=== PATIENT | female | born 1970 | race Caucasian/White ===

== ENCOUNTER 2019-03-21 02:30 | Inpatient (IN) | payer MEDICAID, OTHER ==
[~2019-03-21] VITALS: Ht 152.4 cm; Wt 74.4 kg
[2019-03-21 03:29] VITALS: BP 156/81
[2019-03-21] MEDS: VANCOMYCIN PER PHARMACY MC PRN ×2 (05:41→05:49)
--- NOTE | 2019-03-21 05:43 | NUR ---
Pharmacy Vancomycin Dosing Note S:Consulted to monitor and dose vancomycin started 03/20/19. O:YESIKA CALZADA is a 48 year old F with LEUCOCYCTOSIS-- POSS MENINGITIS . Height: 5 feet, 0 inches Weight: 70.877372 kg [place] Body Weight: 45.50 Adjusted Body Weight: 55.66 Dosing Weight: Actual Other Antibiotics: CEFTRIAXONE 2GM IV Q12H AMPICILLIN 2GM IV Q6H ACYCLOVIR 700MG IV Q8H LABS: Last BUN: 14 Last Creatinine: 0.9 Creatinine Clearance: 66 mL/min Last WBC: 17.9 Last Procalcitonin: Tmax (past 24 hours): Microbiology: I/O: Drug Levels: Last level: on at Last dose given at Vancomycin Dosing: Loading Dose: 1750 mg x1 03/20 APPROX 2029 AT [facility] Dosing Weight: Actual Target Trough: 15-20 A: Based on: Actual Wt and CrCl P: 1. 03/21/19 0900 Vancomycin 1000 mg IV q12h 2. Follow up Trough level on 03/22/19 at 0830 3. Pharmacy will continue to monitor, follow and adjust therapy as needed. LISA GALEANA RPH, 03/21/19 0543 Signed: 03/21/19 at 0546 by LISA GALEANA RPH PHA
[2019-03-21] MEDS ORDERED: ACYCLOVIR SODIUM IV SCH (06:00)
[2019-03-21] MEDS ORDERED: DEXTROSE 5% IV SCH (06:00)
[2019-03-21 06:16] LABS: BASO % 0 % (0-3); EOS % 0 % (0-3); HEMATOCRIT 41.1 % (36.0-47.0); HEMOGLOBIN 13.8 g/dL (12.0-15.5); LYMPH % 8 % (24-48); MEAN CORPUSCULAR HEMOGLOBIN 31 pg (25-35); MEAN CORPUSCULAR HGB CONC 34 g/dL (31-37); MEAN CORPUSCULAR VOLUME 92 fL (79-100); MONO # 0.4 x10^3/uL (0.0-1.1); MONO % 3 % (0-9); NEUT # 10.9 x10^3/uL (1.8-7.7); NEUT % 88 % (31-73); PLATELET COUNT 257 x10^3/uL (140-400); RED BLOOD COUNT 4.45 x10^6/uL (3.50-5.40); RED CELL DISTRIBUTION WIDTH 13.2 % (11.5-14.5); WHITE BLOOD COUNT 12.4 x10^3/uL (4.0-11.0)
[2019-03-21 06:35] LABS: ALBUMIN/GLOBULIN RATIO 0.9 (1.0-1.7); CALCIUM 8.2 mg/dL (8.5-10.1); CREATININE 0.7 mg/dL (0.6-1.0); GFR 88.6; POTASSIUM 3.6 mmol/L (3.5-5.1); TOTAL BILIRUBIN 0.4 mg/dL (0.2-1.0); TOTAL PROTEIN 6.5 g/dL (6.4-8.2)
[2019-03-21 07:00] VITALS: BP 117/63
[2019-03-21] MEDS ORDERED: AMPICILLIN SODIUM 2 GM in IV NORMAL SALINE 100ML 100 ML IV SCH (07:00)
--- NOTE | 2019-03-21 08:34 | NUR ---
Chart review done,however, no notes as yet. Spoke w/ pt at bedside w/ visitors present. Pt indicated severe dizziness affecting ability to stand therefore affecting safe functional mobility and self care. Pt may benefit from PT/OT Eval and Treat when appropriate. Addendum: 03/21/19 at 0835 by CAROL VAIL OT Amended: Links added.
[2019-03-21] MEDS ORDERED: cefTRIAXone IV Push 2 GM VIAL. IVP SCH (09:00)
[2019-03-21] MEDS ORDERED: VANCOMYCIN 1 GM in IV NORMAL SALINE 250ML 250 ML IV SCH (09:00)
[2019-03-21] MEDS ORDERED: VANCOMYCIN 1.75 GM in IV NORMAL SALINE 500ML BAG 500 ML IV SCH (09:00)
--- NOTE | 2019-03-21 09:14 | NUR ---
SW following pt for anticipated dc needs. Chart reviewed. Pt lives at home alone, admitted for AMS, R/O meningitis. Rehab screen recommends PT/OT order. No Physician notes to review at this time. Will continue to follow.
[2019-03-21 09:25] LABS: % BANDS 7 % (0-9); % LYMPHS 7 % (24-48); % MONOS 3 % (0-10); % SEGS 83 % (35-66); PLT ESTIMATE ADEQUATE (ADEQUATE)
--- NOTE | 2019-03-21 10:48 | PDOC1 ---
History and Physical Date of Admission Date of Admission DATE: 03/21/19 TIME: 10:48 Identification/Chief Complaint Chief Complaint SEEN IN ER IN [place], TRANSFERRED TO HERE FOR ID CONSULT, IV ANTIBIOTICS LP REVIEWED, CULTURES DONE ID AND NEUROLOGY CONSULTED Past Medical History Cardiovascular: HTN Rheumatologic: Fibromyalgia Family History Family History: Hypertension Social History Smoke: <1 pack per day ALCOHOL: none Drugs: None Current Medications Current Medications Current Medications Vancomycin HCl (Vanco Per Pharmacy) 1 each PRN DAILY PRN MC SEE COMMENTS Last administered on 03/21/19at 05:49; Start 03/21/19 at 03:30 Ampicillin Sodium 2 gm/Sodium Chloride 100 ml @ 200 mls/hr Q6H IV Last administered on 03/21/19at 07:28; Start 03/21/19 at 07:00 Acyclovir Sodium 700 mg/Dextrose 264 ml @ 267.945 mls/hr Q8HRS IV Last administered on 03/21/19at 06:08; Start 03/21/19 at 06:00 Ceftriaxone Sodium (Rocephin) 2 gm Q12HR IVP Last administered on 03/21/19at 08 :46; Start 03/21/19 at 09:00 Vancomycin HCl 1.75 gm/Sodium Chloride 500 ml @ 250 mls/hr Q12H IV ; Start 03/21/19 at 09:00; Status UNV Vancomycin HCl 1 gm/Sodium Chloride 250 ml @ 250 mls/hr Q12H IV Last administered on 03/21/19at 08:46; Start 03/21/19 at 09:00 Vancomycin HCl (Vancomycin Trough Level) 1 each 1X ONCE MC ; Start 03/22/19 at 08:30; Stop 03/22/19 at 08:31 Allergies Allergies: Coded Allergies: No Known Drug Allergies (Unverified , 03/21/19) ROS Review of System 14 PT ROS OTHERWISE NEG General: YES: Fatigue, Malaise PSYCHOLOGICAL ROS: No: Anxiety, Behavioral Disorder, Concentration difficultie, Decreased libido, Depression, Disorientation, Hallucinations, Hostility, Irritablity, Memory difficulties, Mood Swings, Obsessive thoughts, Physical abuse, Sexual abuse, Sleep disturbances, Suicidal ideation, Other HEENT: YES: Heacaches; No: Visual Changes, Hearing change, Nasal congestion, Nasal discharge, Oral lesions, Sinus pain, Sore Throat, Epistaxis, Sneezing, Snoring, Tinnitus, Vertigo, Vocal changes, Other ALLERGY AND IMMUNOLOGY: No: Hives, Insect Bite Sensitivity, Itchy/Watery Eyes, Nasal Congestion, Post Nasal Drip, Seasonal Allergies, Other Hematological and Lymphatic: No: Bleeding Problems, Blood Clots, Blood Transfusions, Brusing, Night Sweats, Pallor, Swollen Lymph Nodes, Other ENDOCRINE: No: Breast Changes, Galactorrhea, Hair Pattern Changes, Hot Flashes, Malaise/lethargy, Mood Swings, Palpitations, Polydipsia/polyuria, Skin Changes, Temperature Intolerance, Unexpected Weight Changes, Other Breast: No New/Changing Breast Lumps, No Nipple changes, No Nipple discharge, No Other Respiratory: No: Cough, Hemoptysis, Orthopnea, Pleuritic Pain, Shortness of breath, SOB with excertion, Sputum Changes, Stridor, Tachypnea, Wheezing, Other Cardiovascular: No Chest Pain, No Palpitations, No Orthopnea, No Paroxysmal Noc. Dyspnea, No Edema, No Lt Headedness, No Other Gastrointestinal: No Nausea, No Vomiting, No Abdominal Pain, No Diarrhea, No Constipation, No Melena, No Hematochezia, No Other Genitourinary: No Dysuria, No Frequency, No Incontinence, No Hematuria, No Retention, No Discharge, No Urgency, No Pain, No Flank Pain, No Other, No , No , No , No , No , No , No Musculoskeletal: Yes Joint Stiffness; No Gait Disturbance, No Joint Pain, No Joint Swelling, No Muscle Pain, No Muscular Weakness, No Pain In:, No Swelling In:, No Other Neurological: Yes Numbness/Tingling Skin: Yes Dry Skin Physical Exam Physical Exam NECK SUPPLE, SLEEPY General: Alert, Oriented X3, Cooperative, No acute distress HEENT: Atraumatic, PERRLA, EOMI, Mucous membr. moist/pink Lungs: Clear to auscultation, Normal air movement Heart: S1S2, RRR, no thrills, no rubs, no gallops, no murmurs Cardiovascular: S1, S2 Breasts: Not examined Abdomen: Normal bowel sounds, Soft, No tenderness Rectal Exam: not examined PELVIC: Examination not indicated Extremities: No clubbing, No cyanosis, No edema Skin: No rashes Neuro: Normal speech, Strength at 5/5 X4 ext, Cranial nerves 3-12 NL Psych/Mental Status: Mental status NL, Mood NL, Other (ODD BEHAVIOR) Vitals Vitals Vital Signs Date Time Temp Pulse Resp B/P (MAP) Pulse Ox O2 Delivery O2 Flow Rate FiO2 03/21/19 08:00 Room Air 03/21/19 07:00 97.5 57 16 117/63 (81) 98 2.0 97.5 Labs Labs Laboratory Tests Test 03/21/19 06:05 White Blood Count 12.4 x10^3/uL (4.0-11.0) Red Blood Count 4.45 x10^6/uL (3.50-5.40) Hemoglobin 13.8 g/dL (12.0-15.5) Hematocrit 41.1 % (36.0-47.0) Mean Corpuscular Volume 92 fL (79-100) Mean Corpuscular Hemoglobin 31 pg (25-35) Mean Corpuscular Hemoglobin Concent 34 g/dL (31-37) Red Cell Distribution Width 13.2 % (11.5-14.5) Platelet Count 257 x10^3/uL (140-400) Neutrophils (%) (Auto) 88 % (31-73) Lymphocytes (%) (Auto) 8 % (24-48) Monocytes (%) (Auto) 3 % (0-9) Eosinophils (%) (Auto) 0 % (0-3) Basophils (%) (Auto) 0 % (0-3) Neutrophils # (Auto) 10.9 x10^3/uL (1.8-7.7) Lymphocytes # (Auto) 1.0 x10^3/uL (1.0-4.8) Monocytes # (Auto) 0.4 x10^3/uL (0.0-1.1) Eosinophils # (Auto) 0.0 x10^3/uL (0.0-0.7) Basophils # (Auto) 0.0 x10^3/uL (0.0-0.2) Segmented Neutrophils % 83 % (35-66) Band Neutrophils % 7 % (0-9) Lymphocytes % 7 % (24-48) Monocytes % 3 % (0-10) Platelet Estimate Adequate (ADEQUATE) Sodium Level 142 mmol/L (136-145) Potassium Level 3.6 mmol/L (3.5-5.1) Chloride Level 109 mmol/L (98-107) Carbon Dioxide Level 22 mmol/L (21-32) Anion Gap 11 (6-14) Blood Urea Nitrogen 11 mg/dL (7-20) Creatinine 0.7 mg/dL (0.6-1.0) Estimated GFR (Cockcroft-Gault) 88.6 BUN/Creatinine Ratio 16 (6-20) Glucose Level 144 mg/dL (70-99) Calcium Level 8.2 mg/dL (8.5-10.1) Total Bilirubin 0.4 mg/dL (0.2-1.0) Aspartate Amino Transf (AST/SGOT) 14 U/L (15-37) Alanine Aminotransferase (ALT/SGPT) 16 U/L (14-59) Alkaline Phosphatase 72 U/L (46-116) Total Protein 6.5 g/dL (6.4-8.2) Albumin 3.0 g/dL (3.4-5.0) Albumin/Globulin Ratio 0.9 (1.0-1.7) Laboratory Tests Test 03/21/19 06:05 White Blood Count 12.4 x10^3/uL (4.0-11.0) Red Blood Count 4.45 x10^6/uL (3.50-5.40) Hemoglobin 13.8 g/dL (12.0-15.5) Hematocrit 41.1 % (36.0-47.0) Mean Corpuscular Volume 92 fL (79-100) Mean Corpuscular Hemoglobin 31 pg (25-35) Mean Corpuscular Hemoglobin Concent 34 g/dL (31-37) Red Cell Distribution Width 13.2 % (11.5-14.5) Platelet Count 257 x10^3/uL (140-400) Neutrophils (%) (Auto) 88 % (31-73) Lymphocytes (%) (Auto) 8 % (24-48) Monocytes (%) (Auto) 3 % (0-9) Eosinophils (%) (Auto) 0 % (0-3) Basophils (%) (Auto) 0 % (0-3) Neutrophils # (Auto) 10.9 x10^3/uL (1.8-7.7) Lymphocytes # (Auto) 1.0 x10^3/uL (1.0-4.8) Monocytes # (Auto) 0.4 x10^3/uL (0.0-1.1) Eosinophils # (Auto) 0.0 x10^3/uL (0.0-0.7) Basophils # (Auto) 0.0 x10^3/uL (0.0-0.2) Segmented Neutrophils % 83 % (35-66) Band Neutrophils % 7 % (0-9) Lymphocytes % 7 % (24-48) Monocytes % 3 % (0-10) Platelet Estimate Adequate (ADEQUATE) Sodium Level 142 mmol/L (136-145) Potassium Level 3.6 mmol/L (3.5-5.1) Chloride Level 109 mmol/L (98-107) Carbon Dioxide Level 22 mmol/L (21-32) Anion Gap 11 (6-14) Blood Urea Nitrogen 11 mg/dL (7-20) Creatinine 0.7 mg/dL (0.6-1.0) Estimated GFR (Cockcroft-Gault) 88.6 BUN/Creatinine Ratio 16 (6-20) Glucose Level 144 mg/dL (70-99) Calcium Level 8.2 mg/dL (8.5-10.1) Total Bilirubin 0.4 mg/dL (0.2-1.0) Aspartate Amino Transf (AST/SGOT) 14 U/L (15-37) Alanine Aminotransferase (ALT/SGPT) 16 U/L (14-59) Alkaline Phosphatase 72 U/L (46-116) Total Protein 6.5 g/dL (6.4-8.2) Albumin 3.0 g/dL (3.4-5.0) Albumin/Globulin Ratio 0.9 (1.0-1.7) VTE Prophylaxis Ordered VTE Prophylaxis Devices: Yes VTE Pharmacological Prophylaxi: Yes Assessment/Plan Assessment/Plan impression R/O MENINGITIS Neck pain Dizziness Anxiety Fibromyalgia csf not impressive PLAN ID CONSULT NEUROLOGY CONSULT CSF CULTURES D/C IV ANTIBIOTICS, OBSERVE UDS PT/OT DVT PROPHYLAXIS LACTIC ACID 57 MIN PT EXAM, CHART REVIEW, > 50% OF TIME SPENT WITH EXAM, CHART REVIEW, PT CARE COORDINATION MELISSA SPANN MD Mar 21, 2019 10:48
[2019-03-21 11:26] VITALS: BP 132/71
--- NOTE | 2019-03-21 12:19 | PDOC ---
Infectious Disease Note Vital Sign Vital Signs Vital Signs Date Time Temp Pulse Resp B/P (MAP) Pulse Ox O2 Delivery O2 Flow Rate FiO2 03/21/19 11:26 97.3 61 16 132/71 (91) 99 Nasal Cannula 2.0 97.3 Labs Lab Laboratory Tests Test 03/21/19 06:05 White Blood Count 12.4 x10^3/uL (4.0-11.0) Red Blood Count 4.45 x10^6/uL (3.50-5.40) Hemoglobin 13.8 g/dL (12.0-15.5) Hematocrit 41.1 % (36.0-47.0) Mean Corpuscular Volume 92 fL (79-100) Mean Corpuscular Hemoglobin 31 pg (25-35) Mean Corpuscular Hemoglobin Concent 34 g/dL (31-37) Red Cell Distribution Width 13.2 % (11.5-14.5) Platelet Count 257 x10^3/uL (140-400) Neutrophils (%) (Auto) 88 % (31-73) Lymphocytes (%) (Auto) 8 % (24-48) Monocytes (%) (Auto) 3 % (0-9) Eosinophils (%) (Auto) 0 % (0-3) Basophils (%) (Auto) 0 % (0-3) Neutrophils # (Auto) 10.9 x10^3/uL (1.8-7.7) Lymphocytes # (Auto) 1.0 x10^3/uL (1.0-4.8) Monocytes # (Auto) 0.4 x10^3/uL (0.0-1.1) Eosinophils # (Auto) 0.0 x10^3/uL (0.0-0.7) Basophils # (Auto) 0.0 x10^3/uL (0.0-0.2) Segmented Neutrophils % 83 % (35-66) Band Neutrophils % 7 % (0-9) Lymphocytes % 7 % (24-48) Monocytes % 3 % (0-10) Platelet Estimate Adequate (ADEQUATE) Sodium Level 142 mmol/L (136-145) Potassium Level 3.6 mmol/L (3.5-5.1) Chloride Level 109 mmol/L (98-107) Carbon Dioxide Level 22 mmol/L (21-32) Anion Gap 11 (6-14) Blood Urea Nitrogen 11 mg/dL (7-20) Creatinine 0.7 mg/dL (0.6-1.0) Estimated GFR (Cockcroft-Gault) 88.6 BUN/Creatinine Ratio 16 (6-20) Glucose Level 144 mg/dL (70-99) Calcium Level 8.2 mg/dL (8.5-10.1) Total Bilirubin 0.4 mg/dL (0.2-1.0) Aspartate Amino Transf (AST/SGOT) 14 U/L (15-37) Alanine Aminotransferase (ALT/SGPT) 16 U/L (14-59) Alkaline Phosphatase 72 U/L (46-116) Total Protein 6.5 g/dL (6.4-8.2) Albumin 3.0 g/dL (3.4-5.0) Albumin/Globulin Ratio 0.9 (1.0-1.7) Objective Assessment Neck pain Dizziness Anxiety Fibromyalgia CSF with no wbc Plan Plan of Care d/c all antibiotics supportive care may need neurology consult JULIANE SANTANA MD Mar 21, 2019 12:19
[2019-03-21 15:00] VITALS: BP 176/90
[2019-03-21] MEDS: ACETAMINOPHEN 325 MG TABLET. PO PRN (15:29)
[2019-03-21] MEDS: amLODIPine BESYLATE 5 MG TABLET PO SCH (15:29)
[2019-03-21] MEDS: ENOXAPARIN 40 MG/0.4 ML SYRINGE. SQ SCH (15:30)
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
[2019-03-21 19:32] VITALS: BP 164/87
[2019-03-21] MEDS: oxyCODONE IR 5 MG TABLET PO PRN (20:14)
[2019-03-21] MEDS: TOPIRAMATE 25 MG TABLET. PO SCH (20:15)
[2019-03-21] MEDS: METOPROLOL SUCC 24HR ER 25 MG TAB.ER.24H. PO SCH (20:16)
[2019-03-21 23:50] VITALS: BP_SYST 159
[2019-03-22] MEDS: MORPHINE SULFATE 2 MG/ML VIAL. IV PRN ×4 (01:06→16:29)
--- NOTE | 2019-03-22 02:15 | CONS ---
DATE OF CONSULTATION: 03/21/2019 REQUESTING PHYSICIAN: Wilder Spears MD REASON FOR CONSULTATION: Neck pain, dizziness, and abnormal CSF. HISTORY OF PRESENT ILLNESS: This is a 48-year-old female who was transferred from [facility]. The patient presented there with neck pain and dizziness. The patient has chronic neck problem and back problem in fact the patient is disable on that basis, but this was more than her usual she says and the dizziness hence she came in. The patient denied any fever, denied any visual symptoms, denied any nausea, vomiting, diarrhea, chest pain, shortness of breath. The patient had a CAT scan of the head done, which was negative there. The patient had CSF done, which showed 250 rbc, 0 wbc, normal protein, and normal glucose. The patient is transferred here on multiple antibiotics. The patient is alert and awake, who is not in any distress. The patient denies any other new symptoms other than continued to have dizziness and neck pain and body ache. PAST MEDICAL HISTORY: Positive for fibromyalgia, anxiety disorder, chronic pain problem. The patient has had hysterectomy and tonsillectomy. Normally, the patient does not go to the doctor regularly whenever needed she says, has not been into the hospital for a long time SOCIAL HISTORY: Positive for smoking. No alcohol use or drug use. ALLERGIES: No known drug allergies. CURRENT MEDICATIONS: Reviewed. REVIEW OF SYSTEMS: As per HPI, all other systems reviewed and are negative. PHYSICAL EXAMINATION: GENERAL: Alert, oriented female, not in distress. VITAL SIGNS: Stable, afebrile. HEENT: Both pupils are round and reacting. No conjunctival lesion. No lesion in the mouth. NECK: Supple. No JVP. No lymphadenopathy. LUNGS: Clear. HEART: S1 and S2 regular. ABDOMEN: Benign. EXTREMITIES: No edema or cyanosis. SKIN: Unremarkable. NEUROLOGIC: Alert, awake, and appropriate. No focal neurologic deficit. The patient has complaints of neck pain, but her meningeal signs are negative. LABORATORY DATA: White count is 12.7. BUN and creatinine is normal. Her CAT scan of the head was unremarkable for any acute changes from [place]. IMPRESSION: 1. Acute on chronic exacerbation of neck pain. 2. Dizziness. 3. Anxiety disorder. 4. Leukocytosis, most likely to be reactive. 5. CSF with no WBC, and high RBC from traumatic tap. RECOMMENDATIONS: We will discontinue antibiotics. Supportive care. Monitor closely. May need MRI of the head if continued to have symptoms of dizziness, but we will leave it for Neurology to decide. At least, CSF ____, there are no signs of infection. It is a traumatic tap. We will continue to follow. Thank you very much, Dr. Spears, for giving me the opportunity to participate in this patient's care. JULIANE SANTANA MD DR: CESAR/patricia JOB#: [id number] / [id number] LACEY
[2019-03-22 03:50] VITALS: BP 179/103
[2019-03-22 07:30] VITALS: BP 152/93
[2019-03-22] MEDS: amLODIPine BESYLATE 5 MG TABLET PO SCH (09:25)
[2019-03-22] MEDS: METOPROLOL SUCC 24HR ER 25 MG TAB.ER.24H. PO SCH (09:26)
[2019-03-22] MEDS: TOPIRAMATE 25 MG TABLET. PO SCH ×2 (09:26→21:26)
[2019-03-22 09:31] LABS: VANC TR 5.6 mcg/mL (10.0-20.0)
--- NOTE | 2019-03-22 09:36 | PDOC ---
PROGRESS NOTES History of Present Illness History of Present Illness VTE Prophylaxis Ordered VTE Prophylaxis Devices: Yes VTE Pharmacological Prophylaxi: Yes Assessment/Plan Assessment/Plan impression R/O MENINGITIS Neck pain Dizziness Anxiety Fibromyalgia csf not impressive PLAN ID CONSULT NEUROLOGY CONSULT CSF CULTURES D/C IV ANTIBIOTICS, OBSERVE UDS PT/OT DVT PROPHYLAXIS LACTIC ACID Metoprolol 25 mg daily. Topamax 25 mg bid. Brain MRI w/wo contrast. 38 min pt exam, chart review, > 50% of time spent with exam, chart review, pt care coordination Vitals Vitals Vital Signs Date Time Temp Pulse Resp B/P (MAP) Pulse Ox O2 Delivery O2 Flow Rate FiO2 03/22/19 07:30 97.6 57 18 152/93 (112) 99 Room Air 97.6 03/21/19 15:00 2.0 Physical Exam General: Alert, Oriented X3, Cooperative, No acute distress Abdomen: Normal bowel sounds, Soft, No tenderness Extremities: No clubbing, No cyanosis, No edema Skin: No rashes Labs LABS Laboratory Tests Test 03/21/19 15:45 03/21/19 19:30 Lactic Acid Level 1.2 mmol/L (0.4-2.0) Erythrocyte Sedimentation Rate 8 (0-25) Comment Review of Relevant I have reviewed the following items merlyn (where applicable) has been applied. Labs Laboratory Tests Test 03/21/19 06:05 03/21/19 15:45 03/21/19 19:30 White Blood Count 12.4 x10^3/uL (4.0-11.0) Red Blood Count 4.45 x10^6/uL (3.50-5.40) Hemoglobin 13.8 g/dL (12.0-15.5) Hematocrit 41.1 % (36.0-47.0) Mean Corpuscular Volume 92 fL (79-100) Mean Corpuscular Hemoglobin 31 pg (25-35) Mean Corpuscular Hemoglobin Concent 34 g/dL (31-37) Red Cell Distribution Width 13.2 % (11.5-14.5) Platelet Count 257 x10^3/uL (140-400) Neutrophils (%) (Auto) 88 % (31-73) Lymphocytes (%) (Auto) 8 % (24-48) Monocytes (%) (Auto) 3 % (0-9) Eosinophils (%) (Auto) 0 % (0-3) Basophils (%) (Auto) 0 % (0-3) Neutrophils # (Auto) 10.9 x10^3/uL (1.8-7.7) Lymphocytes # (Auto) 1.0 x10^3/uL (1.0-4.8) Monocytes # (Auto) 0.4 x10^3/uL (0.0-1.1) Eosinophils # (Auto) 0.0 x10^3/uL (0.0-0.7) Basophils # (Auto) 0.0 x10^3/uL (0.0-0.2) Segmented Neutrophils % 83 % (35-66) Band Neutrophils % 7 % (0-9) Lymphocytes % 7 % (24-48) Monocytes % 3 % (0-10) Platelet Estimate Adequate (ADEQUATE) Sodium Level 142 mmol/L (136-145) Potassium Level 3.6 mmol/L (3.5-5.1) Chloride Level 109 mmol/L (98-107) Carbon Dioxide Level 22 mmol/L (21-32) Anion Gap 11 (6-14) Blood Urea Nitrogen 11 mg/dL (7-20) Creatinine 0.7 mg/dL (0.6-1.0) Estimated GFR (Cockcroft-Gault) 88.6 BUN/Creatinine Ratio 16 (6-20) Glucose Level 144 mg/dL (70-99) Calcium Level 8.2 mg/dL (8.5-10.1) Total Bilirubin 0.4 mg/dL (0.2-1.0) Aspartate Amino Transf (AST/SGOT) 14 U/L (15-37) Alanine Aminotransferase (ALT/SGPT) 16 U/L (14-59) Alkaline Phosphatase 72 U/L (46-116) Total Protein 6.5 g/dL (6.4-8.2) Albumin 3.0 g/dL (3.4-5.0) Albumin/Globulin Ratio 0.9 (1.0-1.7) Procalcitonin < 0.10 ng/mL (0.00-0.10) Lactic Acid Level 1.2 mmol/L (0.4-2.0) Erythrocyte Sedimentation Rate 8 (0-25) Laboratory Tests Test 03/21/19 15:45 03/21/19 19:30 Lactic Acid Level 1.2 mmol/L (0.4-2.0) Erythrocyte Sedimentation Rate 8 (0-25) Medications Current Medications Vancomycin HCl (Vanco Per Pharmacy) 1 each PRN DAILY PRN MC SEE COMMENTS Last administered on 03/21/19at 05:49; Start 03/21/19 at 03:30; Stop 03/21/19 at 12:17; Status DC Ampicillin Sodium 2 gm/Sodium Chloride 100 ml @ 200 mls/hr Q6H IV Last administered on 03/21/19at 07:28; Start 03/21/19 at 07:00; Stop 03/21/19 at 12:17; Status DC Acyclovir Sodium 700 mg/Dextrose 264 ml @ 267.945 mls/hr Q8HRS IV Last administered on 03/21/19at 06:08; Start 03/21/19 at 06:00; Stop 03/21/19 at 12:17; Status DC Ceftriaxone Sodium (Rocephin) 2 gm Q12HR IVP Last administered on 03/21/19at 08:46; Start 03/21/19 at 09:00; Stop 03/21/19 at 12:17; Status DC Vancomycin HCl 1.75 gm/Sodium Chloride 500 ml @ 250 mls/hr Q12H IV ; Start 03/21/19 at 09:00; Status UNV Vancomycin HCl 1 gm/Sodium Chloride 250 ml @ 250 mls/hr Q12H IV Last administered on 03/21/19at 08:46; Start 03/21/19 at 09:00; Stop 03/21/19 at 12:17; Status DC Vancomycin HCl (Vancomycin Trough Level) 1 each 1X ONCE MC ; Start 03/22/19 at 08:30; Stop 03/22/19 at 08:31; Status DC Enoxaparin Sodium (Lovenox 40mg Syringe) 40 mg Q24H SQ Last administered on 03/21/19 15:30; Start 03/21/19 at 15:00 Amlodipine Besylate (Norvasc) 5 mg DAILY PO Last administered on 03/21/19at 15:30; Start 03/21/19 at 16:00 Acetaminophen (Tylenol) 650 mg PRN Q6HRS PRN PO HEADACHE Last administered on 03/21/19at 15:30; Start 03/21/19 at 15:30 Metoprolol Succinate (Toprol Xl) 25 mg DAILY PO Last administered on 03/21/19 20:16; Start 03/21/19 at 20:00 Topiramate (Topamax) 25 mg BID PO Last administered on 03/21/19 20:16; Start 03/21/19 at 21:00 Oxycodone HCl (Roxicodone) 5 mg PRN Q6HRS PRN PO PAIN Last administered on 03/21/19 20:16; Start 03/21/19 at 20:00 Morphine Sulfate (Morphine Sulfate) 2 mg PRN Q4HRS PRN IV PAIN Last administered on 03/22/19at 05:46; Start 03/21/19 at 21:00 Vitals/I & O Vital Sign - Last 24 Hours 03/21/19 03/21/19 03/21/19 03/21/19 11:26 15:00 15:30 19:32 Temp 97.3 98.1 98.5 97.3 98.1 98.5 Pulse 61 66 66 64 Resp 16 16 20 B/P (MAP) 132/71 (91) 176/90 (118) 176/90 164/87 (112) Pulse Ox 99 100 100 O2 Delivery Nasal Cannula Nasal Cannula Room Air O2 Flow Rate 2.0 2.0 03/21/19 03/21/19 03/21/19 03/22/19 20:00 20:16 23:50 03:50 Temp 98.2 98.2 Pulse 64 59 60 Resp 18 20 B/P (MAP) 164/87 159/ 179/103 (128) Pulse Ox 97 99 O2 Delivery Room Air Room Air 03/22/19 07:30 Temp 97.6 97.6 Pulse 57 Resp 18 B/P (MAP) 152/93 (112) Pulse Ox 99 O2 Delivery Room Air Intake and Output 03/21/19 03/21/19 03/22/19 14:59 22:59 06:59 Intake Total 200 ml 0 ml Output Total 350 ml 750 ml 1350 ml Balance -150 ml -750 ml -1350 ml MELISSA SPANN MD Mar 22, 2019 09:36
[2019-03-22 11:00] VITALS: BP 148/76
--- NOTE | 2019-03-22 11:02 | PDOC ---
Infectious Disease Note Subjective Subjective cont to have headache/migrain and neck pain says ROS ROS no n/v/d/sob/fever Vital Sign Vital Signs Vital Signs Date Time Temp Pulse Resp B/P (MAP) Pulse Ox O2 Delivery O2 Flow Rate FiO2 03/22/19 09:36 Room Air 03/22/19 07:30 97.6 57 18 152/93 (112) 99 97.6 03/21/19 15:00 2.0 Physical Exam PHYSICAL EXAM GENERAL: Alert, oriented female, not in distress. VITAL SIGNS: Stable, afebrile. HEENT: Both pupils are round and reacting. No conjunctival lesion. No lesion in the mouth. NECK: Supple. No JVP. No lymphadenopathy. LUNGS: Clear. HEART: S1 and S2 regular. ABDOMEN: Benign. EXTREMITIES: No edema or cyanosis. SKIN: Unremarkable. NEUROLOGIC: Alert, awake, and appropriate. No focal neurologic deficit. The patient has complaints of neck pain, but her meningeal signs are negative. Labs Lab Laboratory Tests Test 03/21/19 15:45 03/21/19 19:30 03/22/19 08:40 Lactic Acid Level 1.2 mmol/L (0.4-2.0) Erythrocyte Sedimentation Rate 8 (0-25) Vancomycin Level Trough 5.6 mcg/mL (10.0-20.0) Vancomycin Last Dose Date 03/21/19 Vancomycin Last Dose Time 2100 Micro culture neg Objective Assessment Neck pain Dizziness Anxiety Fibromyalgia CSF with no wbc Plan Plan of Care supportive care no infection will s/o , call if condition changes or questions JULIANE SANTANA MD Mar 22, 2019 11:02
[2019-03-22 11:54] LABS: BASO # 0.1 x10^3/uL (0.0-0.2); BASO % 1 % (0-3); EOS # 0.2 x10^3/uL (0.0-0.7); EOS % 2 % (0-3); HEMOGLOBIN 14.8 g/dL (12.0-15.5); LYMPH # 2.3 x10^3/uL (1.0-4.8); LYMPH % 21 % (24-48); MEAN CORPUSCULAR HEMOGLOBIN 31 pg (25-35); MEAN CORPUSCULAR HGB CONC 34 g/dL (31-37); MEAN CORPUSCULAR VOLUME 93 fL (79-100); MONO # 0.9 x10^3/uL (0.0-1.1); MONO % 8 % (0-9); NEUT # 7.6 x10^3/uL (1.8-7.7); NEUT % 68 % (31-73); PLATELET COUNT 265 x10^3/uL (140-400); RED BLOOD COUNT 4.71 x10^6/uL (3.50-5.40); RED CELL DISTRIBUTION WIDTH 13.5 % (11.5-14.5); WHITE BLOOD COUNT 11.1 x10^3/uL (4.0-11.0)
[2019-03-22] MEDS ORDERED: GADOTERATE 7.5 MMOL/15ML VIAL. IVP ONE (12:15)
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
[2019-03-22] MEDS ORDERED: IOHEXOL 350 MG/ML 100 ML VIAL. IV ONE ×2 (13:30→13:45)
[2019-03-22] MEDS ORDERED: CONTRAST GIVEN. MC PRN (13:30)
--- NOTE | 2019-03-22 15:01 | RAD ---
CLINICAL HISTORY: CVA COMPARISON: CT head 03/22/2019 TECHNIQUE: CT angiogram of the head and neck was performed following the administration of intravenous contrast. Multiplanar reconstructed images were obtained including 3D reconstructed images performed on an independent work station. Stenosis if present in the carotid arteries were measured using NASCET criteria. PQRS compliance statement - One or more of the following individualized dose reduction techniques were utilized for this study: 1. Automated exposure control 2. Adjustment of the mA and/or kV according to patient size 3. Use of iterative reconstruction technique FINDINGS: CTA of the intracranial circulation reveals intermittent atherosclerotic calcifications of the distal internal carotid arteries bilaterally without significant luminal narrowing, including the distal cervical, petrous, cavernous and supraclinoid portions. The anterior cerebral arteries are well visualized and without evidence of stenosis or occlusion. The middle cerebral arteries are well visualized and without evidence of stenosis or occlusion. The posterior cerebral arteries are well visualized and without evidence of stenosis or occlusion. The vertebral basilar system is normal with no evidence of stenosis or occlusion. In the neck, the origins of the great vessels are unremarkable. The bilateral common carotid arteries hemilaminotomy atherosclerotic calcifications without evidence of significant stenosis or occlusion. Atheromatous plaque and narrowing is seen at the carotid bulb. At the origin of the left internal carotid artery there is approximately 75 percent narrowing with atheromatous plaque and calcifications. Approximately 5 mm beyond the origin of the right internal carotid artery there is focal aneurysmal dilatation of the internal carotid artery measuring up to 7 mm, at a normal proximal and distal level this measures up to 5 mm. The vertebral arteries in the neck are well visualized bilaterally and unremarkable. IMPRESSION: Approximately 75 percent narrowing at the origin of the left internal carotid artery. Approximately 5 mm beyond the origin of the right internal carotid artery there is focal aneurysmal dilatation/ectasia of the internal carotid artery measuring 7 mm (5 mm at a more normal level). Otherwise no evidence for high-grade stenosis or occlusion of the vessels of the neck or intracranial circulation. Electronically signed by: Rex Coreas MD (03/22/2019 2:58 PM) [facility]
[2019-03-22 15:40] VITALS: BP 124/74
--- NOTE | 2019-03-22 15:56 | NUR ---
SW following pt. Pt declined PT/OT today. ID following. No dc recommendation noted at this time. Will continue to follow.
[2019-03-22] MEDS: ENOXAPARIN 40 MG/0.4 ML SYRINGE. SQ SCH (16:29)
[2019-03-22] MEDS: oxyCODONE IR 5 MG TABLET PO PRN (19:16)
[2019-03-22 19:50] VITALS: BP 176/96
[2019-03-22] MEDS ORDERED: ATORVASTATIN CALCIUM 10 MG TABLET. PO SCH (21:00)
[2019-03-22] MEDS: ASPIRIN 325 MG TABLET PO SCH (21:26)
--- NOTE | 2019-03-22 21:58 | PDOC ---
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 Subacute left cerebellar infract. Severe headaches. Neck pain. Left ICA >75% stenosis. Right ICA 7 mm dilatation or aneurysm. HTN. Smoking. Obesity. RECOMMENDATIONS/PLAN: Pain control. ASA 325 mg daily. Plan to add Plavix after 3-5 days. Metoprolol 25 mg daily. Topamax 25 mg bid. Lipitor HS. Echo + bubble study. Fasting lipid panel. Please consult VS. MRI, CTA: refer to reports. 03/22/19: headaches improved than the day before but still has a lot of pain. Past Medical History Cardiovascular: HTN Rheumatologic: Fibromyalgia Family History Hypertension Social History Smoke: <1 pack per day x 15 years. ALCOHOL: none Drugs: None Please see above. PAST SURGERY HISTORY: No major surgery recently. ALLERGY: Unknown MEDICATIONS: Refer to MAR REVIEW OF SYSTEMS: Constitutional: No malnutrition, weight loss, cachexia. Head: No recent traumatic brain or head injury. Skin: No edema, or rash. Ear: No infection. Eyes: No vision loss or color blindness. Nose: No bleeding or purulent discharges. Hearing: No hearing decrease. Neck: No injury. Breast: No history of cancer, masses,or discharges. Cardiac: HTN. Pulmonary: Smoking.. GI: No GI ulcer, GI bleeding. Urinary/genital: UTI. Endocrinologic: No cousin face, craniofacial dysmorphism, polydactyly. Skeletomuscular: No muscular atrophy, deformity. Neurological: see HP. Psychiatric: Denies drug use/abuse. Otherwise, not [id number] review of systems. PHYSICAL EXAMINATION: General appearance is in subacute distress. HEENT: Normocephalic and nontraumatic. Eyes, nose, ears, and throat are unremarkable. Neck is supple. No lymphadenopathy. No bruits are heard over the carotid artery. No crepitus. Cardiovascular: S1, S2, regular rate and rhythm. Pulmonary: Clear to auscultation bilaterally. Abdomen: Bowel sounds are positive. Abdomen is soft, nontender, and nondistended. Extremities: No rash, lesions, or edema. No restriction of range of motion NEUROLOGICAL EXAMINATION: Alert Oriented to time, place and person. PERRL. EOMI. CN: no focal findings. Muscle tone: within normal. Muscle strength: 5 DTR: 2 Plantar reflex: Flexor response bilaterally Gait: not examined in bed. Sensory exam: no abnormal findings. No cerebellar signs elicited. F-T-N test accurate. Objective Objective Vital Signs Date Time Temp Pulse Resp B/P (MAP) Pulse Ox O2 Delivery O2 Flow Rate FiO2 03/22/19 21:26 100 Room Air 03/22/19 19:50 97.4 57 20 176/96 (122) 97.4 03/21/19 15:00 2.0 Intake and Output 03/22/19 06:59 Intake Total 200 ml Output Total 2450 ml Balance -2250 ml Intake Oral 200 ml Output Urine Total 2450 ml Vitals Signs Vitals VS - Last 72 Hours, by Label Date Time Temp Pulse Resp B/P (MAP) Pulse Ox O2 Delivery O2 Flow Rate FiO2 03/22/19 21:26 100 Room Air 03/22/19 19:50 97.4 57 20 176/96 (122) 100 Room Air 97.4 03/22/19 15:40 97.8 63 16 124/74 (91) 99 Room Air 97.8 03/22/19 11:00 98.0 65 18 148/76 (100) 99 Room Air 98.0 03/22/19 09:36 Room Air 03/22/19 08:00 Room Air 03/22/19 07:30 97.6 57 18 152/93 (112) 99 Room Air 97.6 03/22/19 03:50 60 20 179/103 (128) 99 03/21/19 23:50 98.2 59 18 159/ 97 Room Air 98.2 03/21/19 20:16 64 164/87 03/21/19 20:00 Room Air 03/21/19 19:32 98.5 64 20 164/87 (112) 100 Room Air 98.5 03/21/19 15:30 66 176/90 03/21/19 15:00 98.1 66 16 176/90 (118) 100 Nasal Cannula 2.0 98.1 03/21/19 11:26 97.3 61 16 132/71 (91) 99 Nasal Cannula 2.0 97.3 03/21/19 08:00 Room Air 03/21/19 07:00 97.5 57 16 117/63 (81) 98 Nasal Cannula 2.0 97.5 Laboratory Laboratory Laboratory Tests Test 03/22/19 08:40 White Blood Count 11.1 x10^3/uL (4.0-11.0) Red Blood Count 4.71 x10^6/uL (3.50-5.40) Hemoglobin 14.8 g/dL (12.0-15.5) Hematocrit 44.0 % (36.0-47.0) Mean Corpuscular Volume 93 fL (79-100) Mean Corpuscular Hemoglobin 31 pg (25-35) Mean Corpuscular Hemoglobin Concent 34 g/dL (31-37) Red Cell Distribution Width 13.5 % (11.5-14.5) Platelet Count 265 x10^3/uL (140-400) Neutrophils (%) (Auto) 68 % (31-73) Lymphocytes (%) (Auto) 21 % (24-48) Monocytes (%) (Auto) 8 % (0-9) Eosinophils (%) (Auto) 2 % (0-3) Basophils (%) (Auto) 1 % (0-3) Neutrophils # (Auto) 7.6 x10^3/uL (1.8-7.7) Lymphocytes # (Auto) 2.3 x10^3/uL (1.0-4.8) Monocytes # (Auto) 0.9 x10^3/uL (0.0-1.1) Eosinophils # (Auto) 0.2 x10^3/uL (0.0-0.7) Basophils # (Auto) 0.1 x10^3/uL (0.0-0.2) Vancomycin Level Trough 5.6 mcg/mL (10.0-20.0) Vancomycin Last Dose Date 03/21/19 Vancomycin Last Dose Time 2100 Medication Medications Current Medications Aspirin (Medardo Aspirin) 325 mg [id number] PO Last administered on 03/22/19at 21:26; Start 03/22/19 at 20:30 Atorvastatin Calcium (Lipitor) 10 mg QHS PO Last administered on 03/22/19at 21:26; Start 03/22/19 at 21:00 Gadoterate Meglumine (Dotarem) 14.2 ml 1X ONCE IVP Last administered on 03/22/19at 12:22; Start 03/22/19 at 12:15; Stop 03/22/19 at 12:16; Status DC Info (CONTRAST GIVEN -- Rx MONITORING) 1 each PRN DAILY PRN MC SEE COMMENTS; Start 03/22/19 at 13:30; Stop 03/24/19 at 13:29 Iohexol (Omnipaque 350 Mg/ml) 75 ml 1X ONCE IV Last administered on 03/22/19at 13:44; Start 03/22/19 at 13:30; Stop 03/22/19 at 13:31; Status DC Iohexol (Omnipaque 350 Mg/ml) 75 ml 1X ONCE IV ; Start 03/22/19 at 13:45; Stop 03/22/19 at 13:46; Status DC Vancomycin HCl (Vancomycin Trough Level) 1 each 1X ONCE MC ; Start 03/22/19 at 08:30; Stop 03/22/19 at 08:31; Status DC Comment Review of Relevant I have reviewed the following items merlyn (where applicable) has been applied. PARKER HOFFMAN MD Mar 22, 2019 21:58
[2019-03-22 23:30] VITALS: BP 168/90
[2019-03-23] MEDS: MORPHINE SULFATE 2 MG/ML VIAL. IV PRN ×5 (01:11→21:59)
[2019-03-23] MEDS: oxyCODONE IR 5 MG TABLET PO PRN ×2 (04:36→11:58)
[2019-03-23 07:00] VITALS: BP 162/84
[2019-03-23] MEDS: ASPIRIN 325 MG TABLET PO SCH (08:54)
[2019-03-23] MEDS: METOPROLOL SUCC 24HR ER 25 MG TAB.ER.24H. PO SCH (08:54)
[2019-03-23] MEDS: amLODIPine BESYLATE 5 MG TABLET PO SCH (08:55)
[2019-03-23] MEDS: TOPIRAMATE 25 MG TABLET. PO SCH ×2 (08:55→21:58)
--- NOTE | 2019-03-23 09:04 | PDOC2 ---
CONSULT Date of Consult Date of Consult DATE: 03/23/19 TIME: 08:38 Reason for Consult Reason for Consult: Left carotid stenosis, Right internal carotid aneurysmal dilation Referring Physician Referring Physician: Dr. Saldaña Identification/Chief Complaint Chief Complaint Headache, dizziness Source Source: Caregiver, Chart review, Patient History of Present Illness Reason for Visit: This is a 48 year old female who was found unresponsive by family 2 days ago. She was transferred from [facility]. The patient is somewhat uncooperative. She has a history of a fall in 2013 with subsequent chronic neck pain and headaches. She currently has her eyes covered, is comp laining of headache and light sensitivity. She reports she does not remember being brought to the hospital. She denies any previous history of TIA or stroke like symptoms. She complains of imbalance and frequent falls. She denies any lower extremity claudication. She uses tobacco products and smokes approximately 10 cigarettes per day. CTA demonstrates left ICA stenosis of 75% and Right ICA aneurysmal dilatation. MRI demonstrates acute infarct in left dorsal medulla and cerebellum with subacute infarction in left cerebellum. Echo with bubble study pending. The patient has been started on daily aspirin, statin therapy and hypertensive therapy as well as Topamax. The nurse reports she has been refusing some therapy and medications. Past Medical History Cardiovascular: HTN CENTRAL NERVOUS SYSTEM: Other (headache) Rheumatologic: Fibromyalgia Past Surgical History Past Surgical History child , miscarriage Family History Family History: Hypertension Social History <1 pack per day ALCOHOL: none Drugs: None Current Medications Current Medications Current Medications Enoxaparin Sodium (Lovenox 40mg Syringe) 40 mg Q24H SQ Last administered on 03/22/19at 16:34; Start 03/21/19 at 15:00 Amlodipine Besylate (Norvasc) 5 mg DAILY PO Last administered on 03/21/19 15:30; Start 03/21/19 at 16:00 Acetaminophen (Tylenol) 650 mg PRN Q6HRS PRN PO HEADACHE Last administered on 03/21/19 15:30; Start 03/21/19 at 15:30 Metoprolol Succinate (Toprol Xl) 25 mg DAILY PO Last administered on 03/21/19 20:16; Start 03/21/19 at 20:00 Topiramate (Topamax) 25 mg BID PO Last administered on 03/22/19 21:26; Start 03/21/19 at 21:00 Oxycodone HCl (Roxicodone) 5 mg PRN Q6HRS PRN PO PAIN Last administered on 03/23/19at 04:36; Start 03/21/19 at 20:00 Morphine Sulfate (Morphine Sulfate) 2 mg PRN Q4HRS PRN IV PAIN Last administered on 03/23/19at 06:17; Start 03/21/19 at 21:00 Aspirin (Medardo Aspirin) 325 mg DAILYWBKFT PO Last administered on 03/22/19at 21:26; Start 03/22/19 at 20:30 Atorvastatin Calcium (Lipitor) 10 mg QHS PO Last administered on 03/22/19at 21:26; Start 03/22/19 at 21:00 Allergies Allergies: Coded Allergies: No Known Drug Allergies (Unverified , 03/21/19) ROS Review of System GEN: Denies fevers, chills, sweats HEENT: Positive for light sensitivity, recent diagnosis for impaired vision CV: Denies chest pain, palpitations RESP: Denies shortness of air, cough GI: Denies nausea, vomiting : Denies hematuria, dysuria ENDO: Denies weight changes NEURO: As per HPI MSK: Positive for weakness SKIN: Denies any skin lesions or rashes Physical Exam General: Alert, Oriented X3, Other (uncooperative at times) Lungs: Clear to auscultation, Normal air movement Heart: Regular rate Abdomen: Normal bowel sounds, Soft, No tenderness, Other (obese) Extremities: No edema, Normal pulses Skin: No rashes, No breakdown Neuro: Strength at 5/5 X4 ext, Sensation intact MUSCULOSKELETAL: Full range of motion without pain Vitals VITALS Vital Signs Date Time Temp Pulse Resp B/P (MAP) Pulse Ox O2 Delivery O2 Flow Rate FiO2 03/23/19 07:00 98.5 58 20 162/84 (110) 100 98.5 03/23/19 06:17 Room Air Labs Labs Laboratory Tests Test 03/22/19 08:40 White Blood Count 11.1 x10^3/uL (4.0-11.0) Red Blood Count 4.71 x10^6/uL (3.50-5.40) Hemoglobin 14.8 g/dL (12.0-15.5) Hematocrit 44.0 % (36.0-47.0) Mean Corpuscular Volume 93 fL (79-100) Mean Corpuscular Hemoglobin 31 pg (25-35) Mean Corpuscular Hemoglobin Concent 34 g/dL (31-37) Red Cell Distribution Width 13.5 % (11.5-14.5) Platelet Count 265 x10^3/uL (140-400) Neutrophils (%) (Auto) 68 % (31-73) Lymphocytes (%) (Auto) 21 % (24-48) Monocytes (%) (Auto) 8 % (0-9) Eosinophils (%) (Auto) 2 % (0-3) Basophils (%) (Auto) 1 % (0-3) Neutrophils # (Auto) 7.6 x10^3/uL (1.8-7.7) Lymphocytes # (Auto) 2.3 x10^3/uL (1.0-4.8) Monocytes # (Auto) 0.9 x10^3/uL (0.0-1.1) Eosinophils # (Auto) 0.2 x10^3/uL (0.0-0.7) Basophils # (Auto) 0.1 x10^3/uL (0.0-0.2) Vancomycin Level Trough 5.6 mcg/mL (10.0-20.0) Vancomycin Last Dose Date 03/21/19 Vancomycin Last Dose Time 2100 Cholesterol 244 LDL 163 HDL 56 Ration 4.4 Images Images CTA IMPRESSION: Approximately 75 percent narrowing at the origin of the left internal carotid artery. Approximately 5 mm beyond the origin of the right internal carotid artery there is focal aneurysmal dilatation/ectasia of the internal carotid artery measuring 7 mm (5 mm at a more normal level). Otherwise no evidence for high-grade stenosis or occlusion of the vessels of the neck or intracranial circulation. MRI IMPRESSION: There are 2 small foci of acute infarction in the left dorsal medulla and left cerebellum. Small area of subacute infarction in the left cerebellum, with several additional tiny left cerebellar chronic lacunar infarcts. Further evaluation of the vasculature is recommended with CTA or MRA of the head and neck. Assessment/Plan Assessment/Plan Assessment: 1. Headache, neck pain. 2. Left internal carotid artery stenosis of 75%, right internal carotid artery aneurysmal dilation. 3. 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 Hypertension 5. Hyperlipidemia 6. Tobaccoism. Plan: 48 year old female with severe left internal carotid artery stenosis and aneurysmal dilatation of her right internal carotid artery likely not the cause of her acute stroke or symptoms. Would recommend she recover medically and then proceed with left carotid endarterectomy. Patient should follow up in [address] Lombardo (04-14-2019 1300) to discuss timing of surgical interventions. R ecommend continued medical management and lifestyle changes with antiplatelet (Daily Aspirin), tobacco cessation, hyperlipidemia and hypertensive management. Discussed plan of care with patient and family. Discussed tobacco use with patient and family, uncertain if patient is willing to consider smoking cessation. Discussed plan of care with Dr. Lombardo, she will see patient and make a dditional recommendations as needed. Thank you for the opportunity to participate in the care of this patient. Attestation: Patient was seen and examined. Will need left CEA in the outpatient setting. Left CEA stenosis is not source of posterior circulation stroke. Asked cardiology to see for coronary ischemic workup as well as athero/thrombo embolic workup. Agree with ASA/Plavix/Statin at discharge. Neurology to help treat patients severe headache's. All questions were answered to patients satis faction. Nicolas Pablo DO, FACS Vascular Surgery ZAYNAB TORRES APRN Mar 23, 2019 09:03 NICOLAS PABLO DO Mar 24, 2019 10:18
[2019-03-23 09:33] LABS: CHOLESTEROL/HDL RATIO 4.4
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
[2019-03-23 10:52] LABS: AMPHETAMINE/METHAMPHETAMINE NEG (NEG); BARBITURATES NEG (NEG); BENZODIAZEPINES NEG (NEG); CANNABINOIDS NEG (NEG); COCAINE NEG (NEG); METHADONE NEG (NEG); OPIATES POS (NEG); PHENCYCLIDINE NEG (NEG)
[2019-03-23 11:30] VITALS: BP 166/83
[2019-03-23] MEDS: ACETAMINOPHEN 325 MG TABLET. PO PRN ×2 (12:58→21:58)
--- NOTE | 2019-03-23 13:57 | CARD ---
MR#: [id number] Date of Study: 03/23/2019 Ordering Physician: PARKER HOFFMAN, Referring Physician: PARKER HOFFMAN, Tech: Evonne Aguilar CARLOS APPROVED REPORT EXAM: Two-dimensional and M-mode echocardiogram with Doppler and color Doppler. Other Information Quality : Technically LimitedHR: 66bpm Rhythm : NSRTechnically limited study due to pt positioning and complaining of pain. INDICATION CVA/TIA 2D DIMENSIONS RVDd2.8 (2.9-3.5cm)Left Atrium(2D)2.7 (1.6-4.0cm) IVSd1.1 (0.7-1.1cm)Aortic Root(2D)2.6 (2.0-3.7cm) LVDd3.8 (3.9-5.9cm)LVOT Diameter2.0 (1.8-2.4cm) PWd0.7 (0.7-1.1cm)LVDs2.7 (2.5-4.0cm) FS (%) 28.4 %SV35.0 ml LVEF(%)55.6 (>50%) M-Mode DIMENSIONS Left Atrium(MM)2.92 (2.5-4.0cm)Aortic Root2.47 (2.2-3.7cm) Aortic Valve AoV Peak Nate.106.2cm/sAoV VTI29.8cm AO Peak GR.4.5mmHgLVOT VTI 14.94cm AO Mean GR.4mmHgAVA (VTI)2.50cm2 Mitral Valve MV E Waabhilm19.6cm/sMV DECEL [id number] MV A Cjlizpsd26.6cm/sE/A Ratio1.2 MV A [id number] TDI Lateral E' P. V8.69cm/sMedial E' P. V9.53cm/s E/Lateral E'9.9E/Medial E'9.0 Tricuspid Valve TR P. [id number]/sRAP [id number] TR Peak Gr.[id number] LEFT VENTRICLE The left ventricle is normal size. Proximal septal thickening is noted. The left ventricular systolic function is normal and the ejection fraction is within normal range. The Ejection Fraction is 55-60% . There is normal LV segmental wall motion. Transmitral Doppler flow pattern is Grade II-pseudonormal filling dynamics. RIGHT VENTRICLE The right ventricle is normal size. There is normal right ventricular wall thickness. The right ventr icular systolic function is normal. ATRIA The left atrium size is normal. The right atrium size is normal. The interatrial septum is intact wit h no evidence for an atrial septal defect or patent foramen ovale as noted on 2-D or Doppler imaging. Injection of bubbles documented no interatrial shunt. AORTIC VALVE The aortic valve is normal in structure and function. The aortic valve is trileaflet. Doppler and Col or Flow revealed no significant aortic regurgitation. There is no significant aortic valvular stenosi s. There is no aortic valvular vegetation. MITRAL VALVE The mitral valve is normal in structure and function. There is no evidence of mitral valve prolapse. There is no mitral valve stenosis. Doppler and Color Flow revealed no mitral valve regurgitation note d. TRICUSPID VALVE The tricuspid valve is normal in structure and function. Doppler and Color Flow revealed trace tricus pid regurgitation. The PA pressure was estimated at 27 mmHg. There is no tricuspid valve prolapse or vegetation. There is no tricuspid valve stenosis. PULMONIC VALVE The pulmonic valve is not well visualized. GREAT VESSELS The aortic root is normal in size. The ascending aorta is normal in size. The IVC is normal in size a nd collapses >50% with inspiration. PERICARDIAL EFFUSION There is no evidence of significant pericardial effusion. Critical Notification Critical Value: No <Conclusion> The left ventricle is normal size. The left ventricular systolic function is normal and the ejection fraction is within normal range. The Ejection Fraction is 55-60%. The interatrial septum is intact with no evidence for an atrial septal defect or patent foramen ovale as noted on 2-D or Doppler imaging. Injection of bubbles documented no interatrial shunt. There is no significant aortic valvular stenosis. Doppler and Color Flow revealed no significant aortic regurgitation. Doppler and Color Flow revealed no mitral valve regurgitation noted. Doppler and Color Flow revealed trace tricuspid regurgitation. The PA pressure was estimated at 27 mmHg. Signed by : Marvel Blandon MD Electronically Approved : 03/23/2019 13:56:57
[2019-03-23 15:00] VITALS: BP 157/82
--- NOTE | 2019-03-23 15:29 | NUR ---
Pt had declined PT/OT again. Will continue to follow.
--- NOTE | 2019-03-23 15:37 | PDOC ---
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 Subacute left cerebellar infract. Severe headaches. Neck pain. Left ICA >75% stenosis. Right ICA 7 mm aneurysmal dilatation. HTN. Smoking. Obesity. RECOMMENDATIONS/PLAN: Pain control. ASA 325 mg daily. Plan to add Plavix after 3-5 days. Metoprolol 37.5 mg daily. Topamax 25 mg bid. Lipitor 40 mg HS. Consulted VS. Discussed with her daughter in detail at bedside on 03/23/19. MRI, CTA: refer to reports. 03/23/19: headaches improved than the day before but still has a lot of pain. Past Medical History Cardiovascular: HTN Rheumatologic: Fibromyalgia Family History Hypertension Social History Smoke: <1 pack per day x 15 years. ALCOHOL: none Drugs: None Please see above. PAST SURGERY HISTORY: No major surgery recently. ALLERGY: Unknown MEDICATIONS: Refer to MAR REVIEW OF SYSTEMS: Constitutional: No malnutrition, weight loss, cachexia. Head: No recent traumatic brain or head injury. Skin: No edema, or rash. Ear: No infection. Eyes: No vision loss or color blindness. Nose: No bleeding or purulent discharges. Hearing: No hearing decrease. Neck: No injury. Breast: No history of cancer, masses,or discharges. Cardiac: HTN. Pulmonary: Smoking.. GI: No GI ulcer, GI bleeding. Urinary/genital: UTI. Endocrinologic: No cousin face, craniofacial dysmorphism, polydactyly. Skeletomuscular: No muscular atrophy, deformity. Neurological: see HP. Psychiatric: Denies drug use/abuse. Otherwise, not [id number] review of systems. PHYSICAL EXAMINATION: General appearance is in subacute distress. HEENT: Normocephalic and nontraumatic. Eyes, nose, ears, and throat are unremarkable. Neck is supple. No lymphadenopathy. No bruits are heard over the carotid artery. No crepitus. Cardiovascular: S1, S2, regular rate and rhythm. Pulmonary: Clear to auscultation bilaterally. Abdomen: Bowel sounds are positive. Abdomen is soft, nontender, and nondistend ed. Extremities: No rash, lesions, or edema. No restriction of range of motion NEUROLOGICAL EXAMINATION: Alert Oriented to time, place and person. PERRL. EOMI. CN: no focal findings. Muscle tone: within normal. Muscle strength: 5 DTR: 2 Plantar reflex: Flexor response bilaterally Gait: not examined in bed. Sensory exam: no abnormal findings. No cerebellar signs elicited. F-T-N test accurate. Objective Objective Vital Signs Date Time Temp Pulse Resp B/P (MAP) Pulse Ox O2 Delivery O2 Flow Rate FiO2 03/23/19 13:03 100 Room Air 2.0 03/23/19 11:30 97.9 58 20 166/83 (110) 97.9 Intake and Output 03/23/19 07:00 Intake Total 350 ml Output Total 2000 ml Balance -1650 ml Intake Oral 350 ml Output Urine Total 2000 ml Vitals Signs Vitals VS - Last 72 Hours, by Label Date Time Temp Pulse Resp B/P (MAP) Pulse Ox O2 Delivery O2 Flow Rate FiO2 03/23/19 13:03 100 Room Air 2.0 03/23/19 11:59 100 Room Air 2.0 03/23/19 11:30 97.9 58 20 166/83 (110) 96 Room Air 97.9 03/23/19 10:25 100 Room Air 2.0 03/23/19 09:00 58 162/84 03/23/19 09:00 58 162/84 03/23/19 08:00 Room Air 2.0 03/23/19 07:00 98.5 58 20 162/84 (110) 100 98.5 03/23/19 06:17 Room Air 03/23/19 04:36 Room Air 03/23/19 03:31 Room Air 03/23/19 01:11 Room Air 03/22/19 23:30 57 20 168/90 (116) 99 03/22/19 21:26 100 Room Air 03/22/19 20:00 Room Air 03/22/19 19:50 97.4 57 20 176/96 (122) 100 Room Air 97.4 03/22/19 15:40 97.8 63 16 124/74 (91) 99 Room Air 97.8 03/22/19 11:00 98.0 65 18 148/76 (100) 99 Room Air 98.0 03/22/19 09:36 Room Air 03/22/19 08:00 Room Air 03/22/19 07:30 97.6 57 18 152/93 (112) 99 Room Air 97.6 Laboratory Laboratory Laboratory Tests Test 03/23/19 08:30 03/23/19 10:00 Triglycerides Level 123 mg/dL (0-150) Cholesterol Level 244 mg/dL (0-200) LDL Cholesterol, Calculated 163 mg/dL (0-100) VLDL Cholesterol, Calculated 25 mg/dL (0-40) Non-HDL Cholesterol Calculated 188 mg/dL (0-129) HDL Cholesterol 56 mg/dL (40-60) Cholesterol/HDL Ratio 4.4 Urine Opiates Screen Pos (NEG) Urine Methadone Screen Neg (NEG) Urine Barbiturates Neg (NEG) Urine Phencyclidine Screen Neg (NEG) Urine Amphetamine/Methamphetamine Neg (NEG) Urine Benzodiazepines Screen Neg (NEG) Urine Cocaine Screen Neg (NEG) Urine Cannabinoids Screen Neg (NEG) Urine Ethyl Alcohol Neg (NEG) Medication Medications Current Medications Aspirin (inexio Aspirin) 325 mg DAILYWBKFT PO Last administered on 03/23/19at 09:00; Start 03/22/19 at 20:30 Atorvastatin Calcium (Lipitor) 10 mg QHS PO Last administered on 03/22/19at 21:26; Start 03/22/19 at 21:00; Stop 03/23/19 at 10:24; Status DC Atorvastatin Calcium (Lipitor) 40 mg QHS PO ; Start 03/23/19 at 21:00 Comment Review of Relevant I have reviewed the following items merlyn (where applicable) has been applied. PARKER HOFFMAN MD Mar 23, 2019 15:36
[2019-03-23] MEDS: ENOXAPARIN 40 MG/0.4 ML SYRINGE. SQ SCH (16:21)
[2019-03-23 19:46] VITALS: BP 150/75
[2019-03-23] MEDS: ATORVASTATIN CALCIUM 40 MG TABLET. PO SCH (21:58)
[2019-03-23 23:07] VITALS: BP 145/81
[2019-03-24] MEDS: MORPHINE SULFATE 2 MG/ML VIAL. IV PRN (03:29)
[2019-03-24 03:49] VITALS: BP 142/110
[2019-03-24 04:42] LABS: BASO % 0 % (0-3); EOS # 0.5 x10^3/uL (0.0-0.7); EOS % 5 % (0-3); HEMATOCRIT 44.3 % (36.0-47.0); HEMOGLOBIN 14.8 g/dL (12.0-15.5); LYMPH % 29 % (24-48); MEAN CORPUSCULAR HEMOGLOBIN 31 pg (25-35); MEAN CORPUSCULAR HGB CONC 34 g/dL (31-37); MEAN CORPUSCULAR VOLUME 93 fL (79-100); MONO % 10 % (0-9); NEUT # 5.8 x10^3/uL (1.8-7.7); NEUT % 56 % (31-73); PLATELET COUNT 258 x10^3/uL (140-400); RED BLOOD COUNT 4.79 x10^6/uL (3.50-5.40); RED CELL DISTRIBUTION WIDTH 13.6 % (11.5-14.5); WHITE BLOOD COUNT 10.3 x10^3/uL (4.0-11.0)
[2019-03-24 05:30] LABS: ALBUMIN 3.3 g/dL (3.4-5.0); ALBUMIN/GLOBULIN RATIO 0.8 (1.0-1.7); CALCIUM 9.2 mg/dL (8.5-10.1); CREATININE 0.7 mg/dL (0.6-1.0); GFR 88.6; POTASSIUM 3.9 mmol/L (3.5-5.1); TOTAL BILIRUBIN 0.3 mg/dL (0.2-1.0); TOTAL PROTEIN 7.2 g/dL (6.4-8.2)
[2019-03-24] MEDS: oxyCODONE IR 5 MG TABLET PO PRN (06:09)
[2019-03-24 07:00] VITALS: BP 164/81
[2019-03-24] MEDS: ASPIRIN 325 MG TABLET PO SCH (08:09)
[2019-03-24] MEDS: ACETAMINOPHEN 325 MG TABLET. PO PRN ×2 (08:10→21:38)
[2019-03-24] MEDS: TOPIRAMATE 25 MG TABLET. PO SCH ×2 (08:10→21:38)
[2019-03-24] MEDS: amLODIPine BESYLATE 5 MG TABLET PO SCH (08:10)
[2019-03-24] MEDS: METOPROLOL SUCC 24HR ER 25 MG TAB.ER.24H. PO SCH (08:11)
--- NOTE | 2019-03-24 08:42 | RAD ---
PORTABLE CHEST 1V INDICATION: Preop, stroke. COMPARISON STUDY: None. FINDINGS: Lungs: Normal lung volume. No pulmonary mass or consolidation. Remote granulomatous disease. The tracheobronchial tree and hilar structures are normal. Pleura: No pleural effusion or pneumothorax. Heart and Mediastinum: The cardiomediastinal silhouette is normal. The great vessels of the thorax are normal. Bones and Soft Tissues: The bones and soft tissues are within normal limits. IMPRESSION: No acute cardiopulmonary process. Electronically signed by: Pravin Hope MD (03/24/2019 8:40 AM) [id number]
--- NOTE | 2019-03-24 10:53 | PDOC2 ---
CARDIAC CONSULT DATE OF CONSULT Date of Consult DATE: 03/24/19 TIME: 10:37 REASON FOR CONSULT Reason for Consult: Full ischemic workup and embolic workup for preop REFERRING PHYSICIAN Referring Physician: Wilberto SOURCE Source: Chart review, Patient HISTORY OF PRESENT ILLNESS HISTORY OF PRESENT ILLNESS This is a 48 yo female admitted for noted altered mental status. She came from brought by daughter to [facility] initially then transferred to [facility] and noted with acute stroke. Pt was noted to be laying on the floor at home unresponsive and unclear if she fell. She does not remember. She remembers being weak unable to stand and was having HAs for 2 days prior to coming to the hospital. She had neck and back pain and slurred speech. No hx of CAD, arrhythmias or past CVAs. No chest pain, SOA or palpitations. PAST MEDICAL HISTORY Cardiovascular: HTN Pulmonary: No pertinent hx CENTRAL NERVOUS SYSTEM: Other (No pertinent history) GI: No pertinent hx Heme/Onc: No pertinent hx Hepatobiliary: No pertinent hx Psych: Anxiety Musculoskeletal: low back pain, Osteoarthritis Rheumatologic: Fibromyalgia Infectious disease: No pertinent hx ENT: No pertinent hx Renal/: No pertinent hx Endocrine: No pertinent hx Dermatology: No pertinent hx PAST SURGICAL HISTORY Past Surgical History: Tonsillectomy, Hysterectomy FAMILY HISTORY Family History: Stroke SOCIAL HISTORY Smoke: <1 pack per day ALCOHOL: none Drugs: None Lives: with Family CURRENT MEDICATIONS CURRENT MEDICATIONS Current Medications Medications (Trade) Dose Ordered Sig/Dagoberto Route PRN Reason Start Time Stop Time Status Last Admin Dose Admin Atorvastatin Calcium (Lipitor) 40 mg QHS PO 03/23/19 21:00 03/23/19 21:59 ALLERGIES ALLERGIES: Coded Allergies: No Known Drug Allergies (Unverified , 03/21/19) ROS Review of System 14 point ROS evaluated with pertinent positives noted per HPI PHYSICAL EXAM General: Alert, Oriented X3, Cooperative, No acute distress HEENT: Atraumatic, Mucous membr. moist/pink Lungs: Clear to auscultation, Normal air movement Heart: Regular rate (SB), Normal S1, Normal S2, No murmurs Abdomen: Soft, No tenderness Extremities: No cyanosis, No edema Skin: No breakdown, No significant lesion Neuro: Normal speech, Sensation intact Psych/Mental Status: Mental status NL, Mood NL MUSCULOSKELETAL: Osteoarthritic changes both hands VITALS/I&O VITALS/I&O: Vital Signs Date Time Temp Pulse Resp B/P (MAP) Pulse Ox O2 Delivery O2 Flow Rate FiO2 03/24/19 08:19 Room Air 03/24/19 08:19 45 164/81 03/24/19 07:00 97.3 16 99 97.3 03/23/19 13:03 2.0 I & O 03/23/19 03/23/19 03/24/19 14:59 22:59 06:59 Intake Total 200 ml 218 ml Output Total 350 ml 150 ml Balance -150 ml 218 ml -150 ml LABS Lab: Laboratory Tests Test 03/24/19 04:20 White Blood Count 10.3 x10^3/uL (4.0-11.0) Red Blood Count 4.79 x10^6/uL (3.50-5.40) Hemoglobin 14.8 g/dL (12.0-15.5) Hematocrit 44.3 % (36.0-47.0) Mean Corpuscular Volume 93 fL (79-100) Mean Corpuscular Hemoglobin 31 pg (25-35) Mean Corpuscular Hemoglobin Concent 34 g/dL (31-37) Red Cell Distribution Width 13.6 % (11.5-14.5) Platelet Count 258 x10^3/uL (140-400) Neutrophils (%) (Auto) 56 % (31-73) Lymphocytes (%) (Auto) 29 % (24-48) Monocytes (%) (Auto) 10 % (0-9) H Eosinophils (%) (Auto) 5 % (0-3) H Basophils (%) (Auto) 0 % (0-3) Neutrophils # (Auto) 5.8 x10^3/uL (1.8-7.7) Lymphocytes # (Auto) 3.0 x10^3/uL (1.0-4.8) Monocytes # (Auto) 1.0 x10^3/uL (0.0-1.1) Eosinophils # (Auto) 0.5 x10^3/uL (0.0-0.7) Basophils # (Auto) 0.0 x10^3/uL (0.0-0.2) Sodium Level 142 mmol/L (136-145) Potassium Level 3.9 mmol/L (3.5-5.1) Chloride Level 105 mmol/L (98-107) Carbon Dioxide Level 27 mmol/L (21-32) Anion Gap 10 (6-14) Blood Urea Nitrogen 18 mg/dL (7-20) Creatinine 0.7 mg/dL (0.6-1.0) Estimated GFR (Cockcroft-Gault) 88.6 BUN/Creatinine Ratio 26 (6-20) H Glucose Level 125 mg/dL (70-99) H Calcium Level 9.2 mg/dL (8.5-10.1) Total Bilirubin 0.3 mg/dL (0.2-1.0) Aspartate Amino Transferase (AST) 18 U/L (15-37) Alanine Aminotransferase (ALT) 25 U/L (14-59) Alkaline Phosphatase 84 U/L (46-116) Total Protein 7.2 g/dL (6.4-8.2) Albumin 3.3 g/dL (3.4-5.0) L Albumin/Globulin Ratio 0.8 (1.0-1.7) L Laboratory Tests 03/24/19 04:20 Laboratory Tests 03/24/19 04:20 ECHOCARDIOGRAM ECHOCARDIOGRAM <Conclusion> The left ventricle is normal size. The left ventricular systolic function is normal and the ejection fraction is within normal range. The Ejection Fraction is 55-60%. The interatrial septum is intact with no evidence for an atrial septal defect or patent foramen ovale as noted on 2-D or Doppler imaging. Injection of bubbles documented no interatrial shunt. There is no significant aortic valvular stenosis. Doppler and Color Flow revealed no significant aortic regurgitation. Doppler and Color Flow revealed no mitral valve regurgitation noted. Doppler and Color Flow revealed trace tricuspid regurgitation. The PA pressure was estimated at 27 mmHg. DATE: 03/23/19 1330 ASSESSMENT/PLAN ASSESSMENT/PLAN 1. 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 LICA stenosis and ANGELA aneurysm: future CEA per vascular 3. HTN 4. Tobaccoism 5. Preop cardiac eval 6. Obesity 7. Asymptomatic SB: 40-50s 8. HLP Recommendations 1. ELIUD. Outpt event monitor to note any arrhythmia that would contribute to embolic CVA 2. MPI as an outpt in preparation for future CEA. Follow up in office. 3. Currently on ASA/plavix. Continue secondary prevention. Decrease toprol and increase norvasc 4. Smoking cessation BRIANA SERNA [employer] Mar 24, 2019 10:53
[2019-03-24] MEDS: CLOPIDOGREL BISULFATE 75 MG TABLET PO SCH (10:56)
[2019-03-24 11:37] VITALS: BP 136/71
--- NOTE | 2019-03-24 11:49 | EKG ---
[facility] [address] [place] [address] Test Date: 2019-03-24 Test Time: 11:25:53 Pat Name: YESIKA CALZADA Department: Room: 658 1 Gender: F Platform Loader: [id number] : 1970 Requested By: BRIANA SERNA Order Number: [id number] Reading MD: Tomás Fontenot MD Measurements Intervals [place] Rate: 52 P: 64 TN: 142 QRS: 31 QRSD: 80 T: 28 QT: 398 QTc: 372 Interpretive Statements SINUS RHYTHM Electronically Signed On 03-31-2019 16:55:23 CDT by Tomás Fontenot MD
[2019-03-24] MEDS: oxyCODONE/APAP 10/325 1 TAB TABLET PO PRN ×2 (12:28→18:37)
--- NOTE | 2019-03-24 12:44 | PDOC ---
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 aneurysm AMS Neck pain & headache Fibromyalgia HTN Osteoarthritis Hysterectomy Tonsillectomy History of Present Illness History of Present Illness 03/24/19 Pt seen and examined Chart reviewed MRI/CT reviewed LP reviewed (CSF not impressive for meningitis) YRIS RN Vitals/I&O Vitals/I&O: Vital Signs Date Time Temp Pulse Resp B/P (MAP) Pulse Ox O2 Delivery O2 Flow Rate FiO2 03/24/19 12:28 97 Room Air 03/24/19 11:37 97.4 59 18 136/71 (92) 97.4 03/23/19 13:03 2.0 I & O 03/23/19 03/23/19 03/24/19 15:00 23:00 07:00 Intake Total 200 ml 218 ml Output Total 350 ml 150 ml Balance -150 ml 218 ml -150 ml Physical Exam Physical Exam: GENERAL: Alert, oriented female, not in distress. VITAL SIGNS: Stable, afebrile. HEENT: Both pupils are round and reacting. No conjunctival lesion. No lesion in the mouth. NECK: Supple. No JVP. No lymphadenopathy. LUNGS: Clear. HEART: S1 and S2 regular. ABDOMEN: Benign. EXTREMITIES: No edema or cyanosis. SKIN: Unremarkable. NEUROLOGIC: Alert, awake, and appropriate. No focal neurologic deficit. The patient has complaints of neck pain, but her meningeal signs are negative. General: Alert, Oriented X3, Cooperative, No acute distress Heart: Regular rate (SB), Normal S1, Normal S2, No murmurs Lungs: Clear Abdomen: Soft, No tenderness Extremities: No cyanosis, No edema Skin: No breakdown, No significant lesion Labs Labs: Laboratory Tests Test 03/24/19 04:20 White Blood Count 10.3 x10^3/uL (4.0-11.0) Red Blood Count 4.79 x10^6/uL (3.50-5.40) Hemoglobin 14.8 g/dL (12.0-15.5) Hematocrit 44.3 % (36.0-47.0) Mean Corpuscular Volume 93 fL (79-100) Mean Corpuscular Hemoglobin 31 pg (25-35) Mean Corpuscular Hemoglobin Concent 34 g/dL (31-37) Red Cell Distribution Width 13.6 % (11.5-14.5) Platelet Count 258 x10^3/uL (140-400) Neutrophils (%) (Auto) 56 % (31-73) Lymphocytes (%) (Auto) 29 % (24-48) Monocytes (%) (Auto) 10 % (0-9) Eosinophils (%) (Auto) 5 % (0-3) Basophils (%) (Auto) 0 % (0-3) Neutrophils # (Auto) 5.8 x10^3/uL (1.8-7.7) Lymphocytes # (Auto) 3.0 x10^3/uL (1.0-4.8) Monocytes # (Auto) 1.0 x10^3/uL (0.0-1.1) Eosinophils # (Auto) 0.5 x10^3/uL (0.0-0.7) Basophils # (Auto) 0.0 x10^3/uL (0.0-0.2) Sodium Level 142 mmol/L (136-145) Potassium Level 3.9 mmol/L (3.5-5.1) Chloride Level 105 mmol/L (98-107) Carbon Dioxide Level 27 mmol/L (21-32) Anion Gap 10 (6-14) Blood Urea Nitrogen 18 mg/dL (7-20) Creatinine 0.7 mg/dL (0.6-1.0) Estimated GFR (Cockcroft-Gault) 88.6 BUN/Creatinine Ratio 26 (6-20) Glucose Level 125 mg/dL (70-99) Calcium Level 9.2 mg/dL (8.5-10.1) Total Bilirubin 0.3 mg/dL (0.2-1.0) Aspartate Amino Transf (AST/SGOT) 18 U/L (15-37) Alanine Aminotransferase (ALT/SGPT) 25 U/L (14-59) Alkaline Phosphatase 84 U/L (46-116) Total Protein 7.2 g/dL (6.4-8.2) Albumin 3.3 g/dL (3.4-5.0) Albumin/Globulin Ratio 0.8 (1.0-1.7) Review of Systems Review of Systems: No chest pain No fever/chills Assessment and Plan Assessmemt and Plan Assessment: 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 Medications: Current Medications Medications (Trade) Dose Ordered Sig/Dagoberto Route PRN Reason Start Time Stop Time Status Last Admin Dose Admin Atorvastatin Calcium (Lipitor) 40 mg QHS PO 03/23/19 21:00 03/23/19 21:59 Clopidogrel Bisulfate (Plavix) 75 mg DAILYWBKFT PO 03/24/19 10:00 03/24/19 10:56 Oxycodone/ Acetaminophen (Percocet 10/325) 1 tab PRN Q6HRS PRN PO MODERATE TO SEVERE PAIN 03/24/19 12:15 03/24/19 12:28 LEBRON CURTIS III DO Mar 24, 2019 12:44
[2019-03-24 15:00] VITALS: BP 143/70
[2019-03-24] MEDS: ENOXAPARIN 40 MG/0.4 ML SYRINGE. SQ SCH (15:21)
--- NOTE | 2019-03-24 15:24 | NUR ---
YAMIL following pt. PT/OT recommends SNU. Pt has been verbalizing wanting to go home but is very weak/not safe to go home yet per PT/OT. YAMIL left a message to pt's daughter, Malathi, requesting a call back. Addendum: 03/25/19 at 1623 by PATTI LOBO Late note: Spoke with Malathi yesterday. Possibly will go home with home health services. Daughter to call YAMIL back after speaking with pt.
--- NOTE | 2019-03-24 16:54 | PDOC ---
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 Subacute left cerebellar infract. Severe headaches. Neck pain. Left ICA >75% stenosis. Right ICA 7 mm aneurysmal dilatation. HTN. Smoking. Obesity. RECOMMENDATIONS/PLAN: Pain control, but avoid triptan family meds. Continue ASA 325 mg daily. Plan to add Plavix after 3-5 days. Continue Metoprolol 37.5 mg daily. Continue Topamax 25 mg bid. Continue Lipitor 40 mg HS. Consulted VS. MRI and CTA: refer to reports. 03/24/19: headaches improved but still has a lot of pain. Past Medical History Cardiovascular: HTN Rheumatologic: Fibromyalgia Family History Hypertension Social History Smoke: <1 pack per day x 15 years. ALCOHOL: none Drugs: None Please see above. PAST SURGERY HISTORY: No major surgery recently. ALLERGY: Unknown MEDICATIONS: Refer to MAR REVIEW OF SYSTEMS: Constitutional: No malnutrition, weight loss, cachexia. Head: No recent traumatic brain or head injury. Skin: No edema, or rash. Ear: No infection. Eyes: No vision loss or color blindness. Nose: No bleeding or purulent discharges. Hearing: No hearing decrease. Neck: No injury. Breast: No history of cancer, masses,or discharges. Cardiac: HTN. Pulmonary: Smoking.. GI: No GI ulcer, GI bleeding. Urinary/genital: UTI. Endocrinologic: No cousin face, craniofacial dysmorphism, polydactyly. Skeletomuscular: No muscular atrophy, deformity. Neurological: see HP. Psychiatric: Denies drug use/abuse. Otherwise, not [id number] review of systems. PHYSICAL EXAMINATION: General appearance is in subacute distress. HEENT: Normocephalic and nontraumatic. Eyes, nose, ears, and throat are unremarkable. Neck is supple. No lymphadenopathy. No bruits are heard over the carotid artery. No crepitus. Cardiovascular: S1, S2, regular rate and rhythm. Pulmonary: Clear to auscultation bilaterally. Abdomen: Bowel sounds are positive. Abdomen is soft, nontender, and nondistended. Extremities: No rash, lesions, or edema. No restriction of range of motion NEUROLOGICAL EXAMINATION: Alert Oriented to time, place and person. PERRL. EOMI. CN: no focal findings. Muscle tone: within normal. Muscle strength: 5 DTR: 2 Plantar reflex: Flexor response bilaterally Gait: not examined in bed. Sensory exam: no abnormal findings. No cerebellar signs elicited. F-T-N test accurate. Objective Objective Vital Signs Date Time Temp Pulse Resp B/P (MAP) Pulse Ox O2 Delivery O2 Flow Rate FiO2 03/24/19 14:25 97 Room Air 2.0 03/24/19 11:37 97.4 59 18 136/71 (92) 97.4 Intake and Output 03/24/19 06:59 Intake Total 418 ml Output Total 500 ml Balance -82 ml Intake Oral 418 ml Output Urine Total 500 ml Vitals Signs Vitals VS - Last 72 Hours, by Label Date Time Temp Pulse Resp B/P (MAP) Pulse Ox O2 Delivery O2 Flow Rate FiO2 03/24/19 14:25 97 Room Air 2.0 03/24/19 12:28 97 Room Air 03/24/19 11:37 97.4 59 18 136/71 (92) 97 Room Air 97.4 03/24/19 08:19 Room Air 03/24/19 08:19 45 164/81 03/24/19 08:19 45 164/81 03/24/19 08:00 Room Air 03/24/19 07:00 97.3 53 16 164/81 (108) 99 Room Air 97.3 03/24/19 03:49 98.8 45 18 142/110 (121) 100 Room Air 98.8 03/23/19 23:07 97.7 60 18 145/81 (102) 100 Room Air 97.7 03/23/19 20:00 Room Air 03/23/19 19:46 97.7 67 20 150/75 (100) 99 Room Air 97.7 03/23/19 17:06 Room Air 03/23/19 16:21 18 Room Air 03/23/19 15:00 97.7 59 20 157/82 (107) 99 Room Air 97.7 03/23/19 13:03 100 Room Air 2.0 03/23/19 11:59 100 Room Air 2.0 03/23/19 11:30 97.9 58 20 166/83 (110) 96 Room Air 97.9 03/23/19 10:25 100 Room Air 2.0 03/23/19 09:00 58 162/84 03/23/19 09:00 58 162/84 03/23/19 08:00 Room Air 2.0 03/23/19 07:00 98.5 58 20 162/84 (110) 100 98.5 Laboratory Laboratory Laboratory Tests Test 03/24/19 04:20 White Blood Count 10.3 x10^3/uL (4.0-11.0) Red Blood Count 4.79 x10^6/uL (3.50-5.40) Hemoglobin 14.8 g/dL (12.0-15.5) Hematocrit 44.3 % (36.0-47.0) Mean Corpuscular Volume 93 fL (79-100) Mean Corpuscular Hemoglobin 31 pg (25-35) Mean Corpuscular Hemoglobin Concent 34 g/dL (31-37) Red Cell Distribution Width 13.6 % (11.5-14.5) Platelet Count 258 x10^3/uL (140-400) Neutrophils (%) (Auto) 56 % (31-73) Lymphocytes (%) (Auto) 29 % (24-48) Monocytes (%) (Auto) 10 % (0-9) Eosinophils (%) (Auto) 5 % (0-3) Basophils (%) (Auto) 0 % (0-3) Neutrophils # (Auto) 5.8 x10^3/uL (1.8-7.7) Lymphocytes # (Auto) 3.0 x10^3/uL (1.0-4.8) Monocytes # (Auto) 1.0 x10^3/uL (0.0-1.1) Eosinophils # (Auto) 0.5 x10^3/uL (0.0-0.7) Basophils # (Auto) 0.0 x10^3/uL (0.0-0.2) Sodium Level 142 mmol/L (136-145) Potassium Level 3.9 mmol/L (3.5-5.1) Chloride Level 105 mmol/L (98-107) Carbon Dioxide Level 27 mmol/L (21-32) Anion Gap 10 (6-14) Blood Urea Nitrogen 18 mg/dL (7-20) Creatinine 0.7 mg/dL (0.6-1.0) Estimated GFR (Cockcroft-Gault) 88.6 BUN/Creatinine Ratio 26 (6-20) Glucose Level 125 mg/dL (70-99) Calcium Level 9.2 mg/dL (8.5-10.1) Total Bilirubin 0.3 mg/dL (0.2-1.0) Aspartate Amino Transf (AST/SGOT) 18 U/L (15-37) Alanine Aminotransferase (ALT/SGPT) 25 U/L (14-59) Alkaline Phosphatase 84 U/L (46-116) Total Protein 7.2 g/dL (6.4-8.2) Albumin 3.3 g/dL (3.4-5.0) Albumin/Globulin Ratio 0.8 (1.0-1.7) Microbiology 03/21/19 Throat Culture - Final, Complete 03/21/19 - Final, Complete Medication Medications Current Medications Amlodipine Besylate (Norvasc) 10 mg DAILY PO ; Start 03/25/19 at 09:00 Atorvastatin Calcium (Lipitor) 40 mg QHS PO Last administered on 03/23/19at 21:59; Start 03/23/19 at 21:00 Clopidogrel Bisulfate (Plavix) 75 mg DAILYWBKFT PO Last administered on 03/24/19at 10:56; Start 03/24/19 at 10:00 Metoprolol Succinate (Toprol Xl) 12.5 mg DAILY PO ; Start 03/25/19 at 09:00 Oxycodone/ Acetaminophen (Percocet 10/325) 1 tab PRN Q6HRS PRN PO MODERATE TO SEVERE PAIN Last administered on 03/24/19at 12:28; Start 03/24/19 at 12:15 Ringer's Solution 1,000 ml @ 50 mls/hr Q20H IV ; Start 03/25/19 at 07:00; Stop 03/25/19 at 18:59 Comment Review of Relevant I have reviewed the following items merlyn (where applicable) has been applied. PARKER HOFFMAN MD Mar 24, 2019 16:54
[2019-03-24 19:55] VITALS: BP 149/83
[2019-03-24] MEDS: ATORVASTATIN CALCIUM 40 MG TABLET. PO SCH (21:38)
[2019-03-24 23:57] VITALS: BP 128/77
[2019-03-25] MEDS: oxyCODONE/APAP 10/325 1 TAB TABLET PO PRN ×2 (01:41→21:40)
[2019-03-25 03:20] VITALS: BP 134/82
[2019-03-25 04:47] LABS: BASO # 0.1 x10^3/uL (0.0-0.2); BASO % 1 % (0-3); EOS # 0.5 x10^3/uL (0.0-0.7); EOS % 5 % (0-3); HEMATOCRIT 43.4 % (36.0-47.0); HEMOGLOBIN 14.5 g/dL (12.0-15.5); LYMPH # 3.3 x10^3/uL (1.0-4.8); LYMPH % 28 % (24-48); MEAN CORPUSCULAR HEMOGLOBIN 31 pg (25-35); MEAN CORPUSCULAR HGB CONC 34 g/dL (31-37); MEAN CORPUSCULAR VOLUME 92 fL (79-100); MONO # 1.2 x10^3/uL (0.0-1.1); MONO % 10 % (0-9); NEUT # 6.4 x10^3/uL (1.8-7.7); NEUT % 56 % (31-73); PLATELET COUNT 277 x10^3/uL (140-400); RED CELL DISTRIBUTION WIDTH 13.6 % (11.5-14.5); WHITE BLOOD COUNT 11.6 x10^3/uL (4.0-11.0)
[2019-03-25 05:04] LABS: CALCIUM 9.5 mg/dL (8.5-10.1); CREATININE 0.9 mg/dL (0.6-1.0); GFR 66.3; POTASSIUM 4.1 mmol/L (3.5-5.1)
[2019-03-25] MEDS: MORPHINE SULFATE 2 MG/ML VIAL. IV PRN ×3 (06:50→18:48)
[2019-03-25 07:00] VITALS: BP 135/71
[2019-03-25] MEDS ORDERED: IV RINGERS,LACTATED 1000ML 1,000 ML IV SCH (07:00)
[2019-03-25] MEDS: CLOPIDOGREL BISULFATE 75 MG TABLET PO SCH (08:00)
[2019-03-25] MEDS: ASPIRIN 325 MG TABLET PO SCH (08:00)
[2019-03-25] MEDS: METOPROLOL SUCC 24HR ER 25 MG TAB.ER.24H. PO SCH (09:00)
[2019-03-25] MEDS: TOPIRAMATE 25 MG TABLET. PO SCH ×2 (09:00→21:39)
[2019-03-25] MEDS: amLODIPine BESYLATE 10 MG TABLET PO SCH (09:00)
[2019-03-25] MEDS ORDERED: LIDOCAINE 2% VISCOUS 15 ML SOLUTION. ONE (10:44)
[2019-03-25] MEDS ORDERED: BENZOCAINE ONE 20% MUCOSAL SPRAY. (10:44)
[2019-03-25] MEDS ORDERED: LIDOCAINE 2% TOPICAL JELLY 30GM TUBE. TP ONE ×2 (10:44→14:45)
[2019-03-25 11:00] VITALS: BP 154/74
[2019-03-25] MEDS ORDERED: fentaNYL PF VIAL 100 MCG/2 ML VIAL ONE (11:23)
--- NOTE | 2019-03-25 11:28 | PDOC2 ---
ALTAGRACIA RAMIREZ Gavin [employer] 03/25/19 1128: UROLOGY CONSULT Date of Consult Date of Consult DATE: 03/25/19 TIME: 11:07 Reason for Consult Reason for Consult: retention Referring Physician Referring Physician: Dr. Delarosa Identification/Chief Complaint Chief Complaint Neurogenic bladder/urinary retention Source Source: Caregiver (Dr. Delarosa), Chart review, Patient History of Present Illness Reason for Visit: Ms. Sanchez is a 48yo F who has been hospitalized for CVA since 03/21/19. Per her mother, she had the catheter place that day, and has since failed two voiding trials. The pt states she has had difficulty completely emptying her bladder for several years. This is the first time she has required a catheter per mother. She denies any pain, fevers, nausea, abdominal pain, or constipation this morning. Past Medical History Cardiovascular: HTN Pulmonary: No pertinent hx CENTRAL NERVOUS SYSTEM: Other (No pertinent history) GI: No pertinent hx Heme/Onc: No pertinent hx Hepatobiliary: No pertinent hx Psych: Anxiety Musculoskeletal: low back pain, Osteoarthritis Rheumatologic: Fibromyalgia Infectious disease: No pertinent hx ENT: No pertinent hx Renal/: No pertinent hx Endocrine: No pertinent hx Dermatology: No pertinent hx Past Surgical History Past Surgical History: Tonsillectomy, Hysterectomy Family History Family History: Stroke Social History <1 pack per day ALCOHOL: none Drugs: None Lives: with Family Current Problem List Problems: (1) Parish catheter in place (2) Urinary retention Current Medications Current Medications Current Medications Amlodipine Besylate (Norvasc) 10 mg DAILY PO ; Start 03/25/19 at 09:00 Benzocaine (Hurricaine One) 1 spray STK-MED ONCE .ROUTE ; Start 03/25/19 at 10:44; Stop 03/25/19 at 10:44; Status DC Lidocaine HCl (Viscous Lidocaine) 15 ml STK-MED ONCE .ROUTE ; Start 03/25/19 at 10:44; Stop 03/25/19 at 10:44; Status DC Lidocaine HCl (Xylocaine 2% Topical 30gm Tube) 30 verónica STK-MED ONCE TP ; Start 03/25/19 at 10:44; Stop 03/25/19 at 10:44; Status DC Metoprolol Succinate (Toprol Xl) 12.5 mg DAILY PO ; Start 03/25/19 at 09:00 Oxycodone/ Acetaminophen (Percocet 10/325) 1 tab PRN Q6HRS PRN PO MODERATE TO SEVERE PAIN Last administered on 03/25/19at 01:41; Start 03/24/19 at 12:15 Ringer's Solution 1,000 ml @ 50 mls/hr Q20H IV ; Start 03/25/19 at 07:00; Stop 03/25/19 at 18:59 Allergies Allergies: Coded Allergies: No Known Drug Allergies (Unverified , 03/21/19) ROS Review Of Systems: CONSTITUTIONAL: No fever or chills EYES: No recent changes SKIN: No rash or itching CARDIOVASCULAR: No chest pain, syncope, palpitations, or edema RESPIRATORY: No SOB or cough GASTROINTESTINAL: No nausea, vomiting or abdominal pain NEUROLOGICAL: No headaches or weakness ENDOCRINE: No cold or heat intolerance GENITOURINARY: + urethral parish MUSCULOSKELETAL: No back pain or joint pain LYMPHATICS: No enlarged lymph nodes PSYCHIATRIC: No anxiety or depression Physical Exam Physical Exam: General: Pleasant, no acute distress, well groomed Eyes: face covered with blanket Neck: Trachea midline, no masses Respiratory: unlabored breathing, not using accessory muscles Cardiovascular: Regular rate and rhythm, no peripheral edema Abdomen: nontender, nondistended, no hepatosplenomegaly, no masses : urethral parish in place draining clear yellow urine Skin: no rashes or skin lesions on visualized skin Psych: normal mood, affect. Alert and oriented x 3. Vitals VITALS Vital Signs Date Time Temp Pulse Resp B/P (MAP) Pulse Ox O2 Delivery O2 Flow Rate FiO2 03/25/19 08:00 Room Air 2.0 03/25/19 07:38 96 03/25/19 07:00 97.8 54 12 135/71 (92) 97.8 Labs Labs Laboratory Tests Test 03/24/19 04:20 03/25/19 04:15 White Blood Count 10.3 x10^3/uL (4.0-11.0) 11.6 x10^3/uL (4.0-11.0) Red Blood Count 4.79 x10^6/uL (3.50-5.40) 4.70 x10^6/uL (3.50-5.40) Hemoglobin 14.8 g/dL (12.0-15.5) 14.5 g/dL (12.0-15.5) Hematocrit 44.3 % (36.0-47.0) 43.4 % (36.0-47.0) Mean Corpuscular Volume 93 fL (79-100) 92 fL (79-100) Mean Corpuscular Hemoglobin 31 pg (25-35) 31 pg (25-35) Mean Corpuscular Hemoglobin Concent 34 g/dL (31-37) 34 g/dL (31-37) Red Cell Distribution Width 13.6 % (11.5-14.5) 13.6 % (11.5-14.5) Platelet Count 258 x10^3/uL (140-400) 277 x10^3/uL (140-400) Neutrophils (%) (Auto) 56 % (31-73) 56 % (31-73) Lymphocytes (%) (Auto) 29 % (24-48) 28 % (24-48) Monocytes (%) (Auto) 10 % (0-9) 10 % (0-9) Eosinophils (%) (Auto) 5 % (0-3) 5 % (0-3) Basophils (%) (Auto) 0 % (0-3) 1 % (0-3) Neutrophils # (Auto) 5.8 x10^3/uL (1.8-7.7) 6.4 x10^3/uL (1.8-7.7) Lymphocytes # (Auto) 3.0 x10^3/uL (1.0-4.8) 3.3 x10^3/uL (1.0-4.8) Monocytes # (Auto) 1.0 x10^3/uL (0.0-1.1) 1.2 x10^3/uL (0.0-1.1) Eosinophils # (Auto) 0.5 x10^3/uL (0.0-0.7) 0.5 x10^3/uL (0.0-0.7) Basophils # (Auto) 0.0 x10^3/uL (0.0-0.2) 0.1 x10^3/uL (0.0-0.2) Sodium Level 142 mmol/L (136-145) 141 mmol/L (136-145) Potassium Level 3.9 mmol/L (3.5-5.1) 4.1 mmol/L (3.5-5.1) Chloride Level 105 mmol/L (98-107) 103 mmol/L (98-107) Carbon Dioxide Level 27 mmol/L (21-32) 29 mmol/L (21-32) Anion Gap 10 (6-14) 9 (6-14) Blood Urea Nitrogen 18 mg/dL (7-20) 22 mg/dL (7-20) Creatinine 0.7 mg/dL (0.6-1.0) 0.9 mg/dL (0.6-1.0) Estimated GFR (Cockcroft-Gault) 88.6 66.3 BUN/Creatinine Ratio 26 (6-20) Glucose Level 125 mg/dL (70-99) 123 mg/dL (70-99) Calcium Level 9.2 mg/dL (8.5-10.1) 9.5 mg/dL (8.5-10.1) Total Bilirubin 0.3 mg/dL (0.2-1.0) Aspartate Amino Transf (AST/SGOT) 18 U/L (15-37) Alanine Aminotransferase (ALT/SGPT) 25 U/L (14-59) Alkaline Phosphatase 84 U/L (46-116) Total Protein 7.2 g/dL (6.4-8.2) Albumin 3.3 g/dL (3.4-5.0) Albumin/Globulin Ratio 0.8 (1.0-1.7) Laboratory Tests Test 03/25/19 04:15 White Blood Count 11.6 x10^3/uL (4.0-11.0) Red Blood Count 4.70 x10^6/uL (3.50-5.40) Hemoglobin 14.5 g/dL (12.0-15.5) Hematocrit 43.4 % (36.0-47.0) Mean Corpuscular Volume 92 fL (79-100) Mean Corpuscular Hemoglobin 31 pg (25-35) Mean Corpuscular Hemoglobin Concent 34 g/dL (31-37) Red Cell Distribution Width 13.6 % (11.5-14.5) Platelet Count 277 x10^3/uL (140-400) Neutrophils (%) (Auto) 56 % (31-73) Lymphocytes (%) (Auto) 28 % (24-48) Monocytes (%) (Auto) 10 % (0-9) Eosinophils (%) (Auto) 5 % (0-3) Basophils (%) (Auto) 1 % (0-3) Neutrophils # (Auto) 6.4 x10^3/uL (1.8-7.7) Lymphocytes # (Auto) 3.3 x10^3/uL (1.0-4.8) Monocytes # (Auto) 1.2 x10^3/uL (0.0-1.1) Eosinophils # (Auto) 0.5 x10^3/uL (0.0-0.7) Basophils # (Auto) 0.1 x10^3/uL (0.0-0.2) Sodium Level 141 mmol/L (136-145) Potassium Level 4.1 mmol/L (3.5-5.1) Chloride Level 103 mmol/L (98-107) Carbon Dioxide Level 29 mmol/L (21-32) Anion Gap 9 (6-14) Blood Urea Nitrogen 22 mg/dL (7-20) Creatinine 0.9 mg/dL (0.6-1.0) Estimated GFR (Cockcroft-Gault) 66.3 Glucose Level 123 mg/dL (70-99) Calcium Level 9.5 mg/dL (8.5-10.1) Assessment/Plan Assessment/Plan Urinary retention - Possible that it is due to recent CVA Since patient has failed two voiding trials in house, unlikely that she will pass another. Recommend whenever she does discharge, she discharge with Parish in place. Nursing may provide additional catheter bags and accessories as deemed necessary/requested by patient on discharge. Appointment scheduled with Dr. Appiah for 03/31/19 at 8:40am. Dr. Appiah to round on patient later today or tomorrow. SHELBI APPIAH MD 03/26/19 1309: UROLOGY CONSULT Assessment/Plan Assessment/Plan Agree with assessment and plan. Patient seen and examined. ALTAGRACIA RAMIREZ APRN Mar 25, 2019 11:28 SHELBI APPIAH MD Mar 26, 2019 13:09
[2019-03-25] MEDS ORDERED: MIDAZOLAM HCL/PF 2 MG/2 ML VIAL. ONE (11:37)
[2019-03-25] MEDS ORDERED: fentaNYL PF VIAL 100 MCG/2 ML VIAL IV ONE (11:45)
[2019-03-25] MEDS ORDERED: MIDAZOLAM HCL/PF 2 MG/2 ML VIAL. IV ONE (11:45)
[2019-03-25] MEDS ORDERED: PROPOFOL 20 ML IV ONE (11:56)
--- NOTE | 2019-03-25 12:43 | PDOC ---
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 Neck pain & headache Fibromyalgia HTN Osteoarthritis Hysterectomy Tonsillectomy History of Present Illness History of Present Illness 03/25/19 Pt seen and examined (well-appearing; in no acute distress) Chart reviewed YRIS CHERRY 03/24/19 Pt seen and examined Chart reviewed MRI/CT reviewed LP reviewed (CSF not impressive for meningitis) YRIS CHERRY Vitals/I&O Vitals/I&O: Vital Signs Date Time Temp Pulse Resp B/P (MAP) Pulse Ox O2 Delivery O2 Flow Rate FiO2 03/25/19 11:51 15 99 Room Air 2.0 03/25/19 11:43 97.8 56 154/74 97.8 I & O 03/24/19 03/24/19 03/25/19 14:59 22:59 06:59 Intake Total 550 ml 150 ml 100 ml Output Total 700 ml 50 ml 400 ml Balance -150 ml 100 ml -300 ml Physical Exam Physical Exam: GENERAL: Alert, oriented female, not in distress. VITAL SIGNS: Stable, afebrile. HEENT: Both pupils are round and reacting. No conjunctival lesion. No lesion in the mouth. NECK: Supple. No JVP. No lymphadenopathy. LUNGS: Clear. HEART: S1 and S2 regular. ABDOMEN: Benign. EXTREMITIES: No edema or cyanosis. SKIN: Unremarkable. NEUROLOGIC: Alert, awake, and appropriate. No focal neurologic deficit. The patient has complaints of neck pain, but her meningeal signs are negative. General: Alert, Oriented X3, Cooperative, No acute distress Heart: Regular rate (SB), Normal S1, Normal S2, No murmurs Lungs: Clear Abdomen: Soft, No tenderness Extremities: No cyanosis, No edema Skin: No breakdown, No significant lesion Labs Labs: Laboratory Tests Test 03/25/19 04:15 White Blood Count 11.6 x10^3/uL (4.0-11.0) Red Blood Count 4.70 x10^6/uL (3.50-5.40) Hemoglobin 14.5 g/dL (12.0-15.5) Hematocrit 43.4 % (36.0-47.0) Mean Corpuscular Volume 92 fL (79-100) Mean Corpuscular Hemoglobin 31 pg (25-35) Mean Corpuscular Hemoglobin Concent 34 g/dL (31-37) Red Cell Distribution Width 13.6 % (11.5-14.5) Platelet Count 277 x10^3/uL (140-400) Neutrophils (%) (Auto) 56 % (31-73) Lymphocytes (%) (Auto) 28 % (24-48) Monocytes (%) (Auto) 10 % (0-9) Eosinophils (%) (Auto) 5 % (0-3) Basophils (%) (Auto) 1 % (0-3) Neutrophils # (Auto) 6.4 x10^3/uL (1.8-7.7) Lymphocytes # (Auto) 3.3 x10^3/uL (1.0-4.8) Monocytes # (Auto) 1.2 x10^3/uL (0.0-1.1) Eosinophils # (Auto) 0.5 x10^3/uL (0.0-0.7) Basophils # (Auto) 0.1 x10^3/uL (0.0-0.2) Sodium Level 141 mmol/L (136-145) Potassium Level 4.1 mmol/L (3.5-5.1) Chloride Level 103 mmol/L (98-107) Carbon Dioxide Level 29 mmol/L (21-32) Anion Gap 9 (6-14) Blood Urea Nitrogen 22 mg/dL (7-20) Creatinine 0.9 mg/dL (0.6-1.0) Estimated GFR (Cockcroft-Gault) 66.3 Glucose Level 123 mg/dL (70-99) Calcium Level 9.5 mg/dL (8.5-10.1) Review of Systems Review of Systems: No headache No fever/chills Assessment and Plan Assessmemt and Plan Assessment: AMS 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 Medications: Current Medications Medications (Trade) Dose Ordered Sig/Dagoberto Route PRN Reason Start Time Stop Time Status Last Admin Dose Admin Ringer's Solution 1,000 ml @ 50 mls/hr Q20H IV 03/25/19 07:00 03/25/19 18:59 03/25/19 11:52 Midazolam HCl (Versed) 2 mg 1X ONCE IV 03/25/19 11:45 03/25/19 11:46 DC 03/25/19 11:51 Fentanyl Citrate (Fentanyl 2ml Vial) 100 mcg 1X ONCE IV 03/25/19 11:45 03/25/19 11:46 DC 03/25/19 11:51 LEBRON CURTIS III DO Mar 25, 2019 12:43
--- NOTE | 2019-03-25 14:16 | PDOC ---
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 Subacute left cerebellar infract. Severe headaches. Neck pain. Left ICA >75% stenosis. Right ICA 7 mm aneurysmal dilatation. HTN. Urinary retention on 03/25/19. Smoking. Obesity. RECOMMENDATIONS/PLAN: Pain control, but avoid triptan family medications. Continue ASA 325 mg daily. Plan to add Plavix after 7 days. Continue Metoprolol 37.5 mg daily. Continue Topamax 25 mg bid. Continue Lipitor 40 mg HS. Consulted VS. Consulted Urology. MRI and CTA: refer to reports. 03/25/19: headaches improved but still has a lot of pain. Past Medical History Cardiovascular: HTN Rheumatologic: Fibromyalgia Family History Hypertension Social History Smoke: <1 pack per day x 15 years. ALCOHOL: none Drugs: None Please see above. PAST SURGERY HISTORY: No major surgery recently. ALLERGY: Unknown MEDICATIONS: Refer to MAR REVIEW OF SYSTEMS: Constitutional: No malnutrition, weight loss, cachexia. Head: No recent traumatic brain or head injury. Skin: No edema, or rash. Ear: No infection. Eyes: No vision loss or color blindness. Nose: No bleeding or purulent discharges. Hearing: No hearing decrease. Neck: No injury. Breast: No history of cancer, masses,or discharges. Cardiac: HTN. Pulmonary: Smoking.. GI: No GI ulcer, GI bleeding. Urinary/genital: UTI. Endocrinologic: No cousin face, craniofacial dysmorphism, polydactyly. Skeletomuscular: No muscular atrophy, deformity. Neurological: see HP. Psychiatric: Denies drug use/abuse. Otherwise, not [id number] review of systems. PHYSICAL EXAMINATION: General appearance is in subacute distress. HEENT: Normocephalic and nontraumatic. Eyes, nose, ears, and throat are unremarkable. Neck is supple. No lymphadenopathy. No bruits are heard over the carotid artery. No crepitus. Cardiovascular: S1, S2, regular rate and rhythm. Pulmonary: Clear to auscultation bilaterally. Abdomen: Bowel sounds are positive. Abdomen is soft, nontender, and nondistended. Extremities: No rash, lesions, or edema. No restriction of range of motion NEUROLOGICAL EXAMINATION: Alert Oriented to time, place and person. PERRL. EOMI. CN: no focal findings. Muscle tone: within normal. Muscle strength: 5 DTR: 2 Plantar reflex: Flexor response bilaterally Gait: not examined in bed. Sensory exam: no abnormal findings. No cerebellar signs elicited. F-T-N test accurate. Objective Objective Vital Signs Date Time Temp Pulse Resp B/P (MAP) Pulse Ox O2 Delivery O2 Flow Rate FiO2 03/25/19 11:51 15 99 Room Air 2.0 03/25/19 11:43 97.8 56 154/74 97.8 Intake and Output 03/25/19 07:00 Intake Total 800 ml Output Total 1150 ml Balance -350 ml Intake Oral 800 ml Output Urine Total 1150 ml Vitals Signs Vitals VS - Last 72 Hours, by Label Date Time Temp Pulse Resp B/P (MAP) Pulse Ox O2 Delivery O2 Flow Rate FiO2 03/25/19 11:51 15 99 Room Air 2.0 03/25/19 11:43 97.8 56 12 154/74 99 Room Air 2.0 97.8 03/25/19 11:00 97.8 56 12 154/74 (100) 98 Room Air 97.8 03/25/19 08:00 Room Air 2.0 03/25/19 07:38 96 Room Air 2.0 03/25/19 07:00 97.8 54 12 135/71 (92) 99 Room Air 97.8 03/25/19 06:50 Room Air 03/25/19 04:47 Room Air 03/25/19 03:20 97.9 56 18 134/82 (99) 96 Room Air 97.9 03/25/19 01:41 Room Air 03/24/19 23:57 98.0 60 18 128/77 (94) 98 Room Air 98.0 03/24/19 20:00 Room Air 2.0 03/24/19 19:55 97.8 61 16 149/83 (105) 97 Room Air 97.8 03/24/19 19:43 Room Air 03/24/19 18:39 99 Room Air 2.0 03/24/19 15:00 97.4 56 18 143/70 (94) 99 Room Air 97.4 03/24/19 14:25 97 Room Air 2.0 03/24/19 12:28 97 Room Air 03/24/19 11:37 97.4 59 18 136/71 (92) 97 Room Air 97.4 8/15/19 08:19 Room Air 03/24/19 08:19 45 164/81 03/24/19 08:19 45 164/81 03/24/19 08:00 Room Air 03/24/19 07:00 97.3 53 16 164/81 (108) 99 Room Air 97.3 Laboratory Laboratory Laboratory Tests Test 03/25/19 04:15 White Blood Count 11.6 x10^3/uL (4.0-11.0) Red Blood Count 4.70 x10^6/uL (3.50-5.40) Hemoglobin 14.5 g/dL (12.0-15.5) Hematocrit 43.4 % (36.0-47.0) Mean Corpuscular Volume 92 fL (79-100) Mean Corpuscular Hemoglobin 31 pg (25-35) Mean Corpuscular Hemoglobin Concent 34 g/dL (31-37) Red Cell Distribution Width 13.6 % (11.5-14.5) Platelet Count 277 x10^3/uL (140-400) Neutrophils (%) (Auto) 56 % (31-73) Lymphocytes (%) (Auto) 28 % (24-48) Monocytes (%) (Auto) 10 % (0-9) Eosinophils (%) (Auto) 5 % (0-3) Basophils (%) (Auto) 1 % (0-3) Neutrophils # (Auto) 6.4 x10^3/uL (1.8-7.7) Lymphocytes # (Auto) 3.3 x10^3/uL (1.0-4.8) Monocytes # (Auto) 1.2 x10^3/uL (0.0-1.1) Eosinophils # (Auto) 0.5 x10^3/uL (0.0-0.7) Basophils # (Auto) 0.1 x10^3/uL (0.0-0.2) Sodium Level 141 mmol/L (136-145) Potassium Level 4.1 mmol/L (3.5-5.1) Chloride Level 103 mmol/L (98-107) Carbon Dioxide Level 29 mmol/L (21-32) Anion Gap 9 (6-14) Blood Urea Nitrogen 22 mg/dL (7-20) Creatinine 0.9 mg/dL (0.6-1.0) Estimated GFR (Cockcroft-Gault) 66.3 Glucose Level 123 mg/dL (70-99) Calcium Level 9.5 mg/dL (8.5-10.1) Microbiology 03/21/19 Throat Culture - Final, Complete 03/21/19 - Final, Complete Medication Medications Current Medications Amlodipine Besylate (Norvasc) 10 mg DAILY PO ; Start 03/25/19 at 09:00 Benzocaine (Hurricaine One) 1 spray STK-MED ONCE .ROUTE ; Start 03/25/19 at 10:44; Stop 03/25/19 at 10:44; Status DC Fentanyl Citrate (Fentanyl 2ml Vial) 100 mcg 1X ONCE IV Last administered on 03/25/19at 11:51; Start 03/25/19 at 11:45; Stop 03/25/19 at 11:46; Status DC Fentanyl Citrate (Fentanyl 2ml Vial) 100 mcg STK-MED ONCE .ROUTE ; Start 03/25/19 at 11:23; Stop 03/25/19 at 11:24; Status DC Lidocaine HCl (Viscous Lidocaine) 15 ml STK-MED ONCE .ROUTE ; Start 03/25/19 at 10:44; Stop 03/25/19 at 10:44; Status DC Lidocaine HCl (Xylocaine 2% Topical 30gm Tube) 30 verónica STK-MED ONCE TP ; Start 03/25/19 at 10:44; Stop 03/25/19 at 10:44; Status DC Metoprolol Succinate (Toprol Xl) 12.5 mg DAILY PO ; Start 03/25/19 at 09:00 Midazolam HCl (Versed) 2 mg 1X ONCE IV Last administered on 03/25/19at 11:51; Start 03/25/19 at 11:45; Stop 03/25/19 at 11:46; Status DC Midazolam HCl (Versed) 2 mg STK-MED ONCE .ROUTE ; Start 03/25/19 at 11:37; Stop 03/25/19 at 11:38; Status DC Propofol 20 ml @ As Directed STK-MED ONCE IV ; Start 03/25/19 at 11:56; Stop 03/25/19 at 11:56; Status DC Ringer's Solution 1,000 ml @ 50 mls/hr Q20H IV Last administered on 03/25/19at 11:52; Start 03/25/19 at 07:00; Stop 03/25/19 at 18:59 Comment Review of Relevant I have reviewed the following items merlyn (where applicable) has been applied. PARKER HOFFMAN MD Mar 25, 2019 14:16
--- NOTE | 2019-03-25 14:42 | CARD ---
MR#: [id number] Date of Study: 03/25/2019 Ordering Physician: BRIANA SERNA, Referring Physician: BRIANA SERNA Tech: Evonne Aguilar RDCS APPROVED REPORT EXAM: Transesophageal echocardiogram with color flow Doppler. INDICATION CVA/TIA Echo Enhancing Agent Agent/Amount Used: Agitated Saline 8mL Reason For Test : Rule out cardiac source of emboli. PROCEDURE After obtaining informed consent, patient underwent transesophageal echo in the PACU. Type of Sedation : General Anesthesia Sedation was administered by General Anesthesia. Sedation was achieved with Propofol 80mg intravenously. Transesophageal probe was inserted and advanced into esophagus by Marvel Blandon MD. Echo enhancement indication: R/O Septal defect. Echo enhancement agent administered: Agitated Saline Throughout the procedure, the blood pressure, pulse oximetry, cardiac rhythm, and rate were monitored . LEFT VENTRICLE The left ventricle is normal size. There is normal left ventricular wall thickness. The left ventricu lar systolic function is normal and the ejection fraction is within normal range. The Ejection Fracti on is 55-60%. There is normal LV segmental wall motion. RIGHT VENTRICLE The right ventricle is normal size. There is normal right ventricular wall thickness. The right ventr icular systolic function is normal. ATRIA The left atrium size is normal. The right atrium size is normal. The interatrial septum is intact wit h no evidence for an atrial septal defect or patent foramen ovale as noted on 2-D or Doppler imaging. Injection of bubbles documented no interatrial shunt. There is no thrombus noted in the left atrial appendage. AORTIC VALVE The aortic valve is normal in structure and function. The aortic valve is trileaflet. Doppler and Col or Flow revealed no significant aortic regurgitation. There is no significant aortic valvular stenosi s. There is no aortic valvular vegetation. MITRAL VALVE The mitral valve is normal in structure and function. There is no evidence of mitral valve prolapse. There is no mitral valve stenosis. Doppler and Color Flow revealed no mitral valve regurgitation note d. TRICUSPID VALVE The tricuspid valve is normal in structure and function. Doppler and Color Flow revealed no tricuspid valve regurgitation noted. There is no tricuspid valve prolapse or vegetation. There is no tricuspid valve stenosis. PULMONIC VALVE The pulmonary valve is normal in structure and function. Doppler and Color Flow revealed no pulmonic valvular regurgitation. There is no pulmonic valvular stenosis. GREAT VESSELS The aortic root is normal in size. The ascending aorta is normal in size. Critical Notification Critical Value: No <Conclusion> The left ventricular systolic function is normal and the ejection fraction is within normal range. The Ejection Fraction is 55-60%. The interatrial septum is intact with no evidence for an atrial septal defect or patent foramen ovale as noted on 2-D or Doppler imaging. Injection of bubbles documented no interatrial shunt. There is no thrombus noted in the left atrial appendage. There is no significant aortic valvular stenosis. There is no aortic valvular vegetation. Doppler and Color Flow revealed no mitral valve regurgitation noted. Doppler and Color Flow revealed no tricuspid valve regurgitation noted. Signed by : Marvel Blandon MD Electronically Approved : 03/25/2019 14:41:53
[2019-03-25] MEDS ORDERED: IV RINGERS,LACTATED 1000ML 1,000 ML IV ONE (14:45)
[2019-03-25] MEDS ORDERED: BENZOCAINE ONE 20% MUCOSAL SPRAY. MM (14:45)
[2019-03-25 15:00] VITALS: BP 160/80
[2019-03-25] MEDS: ENOXAPARIN 40 MG/0.4 ML SYRINGE. SQ SCH (15:18)
[2019-03-25] MEDS: ATORVASTATIN CALCIUM 40 MG TABLET. PO SCH (21:39)
[2019-03-25 22:17] VITALS: BP 129/68
[2019-03-26] MEDS: MORPHINE SULFATE 2 MG/ML VIAL. IV PRN ×2 (01:31→09:00)
[2019-03-26 03:30] VITALS: BP 148/76
[2019-03-26] MEDS: oxyCODONE/APAP 10/325 1 TAB TABLET PO PRN ×3 (06:45→20:52)
[2019-03-26 07:00] VITALS: BP 146/71
[2019-03-26] MEDS: TOPIRAMATE 25 MG TABLET. PO SCH ×2 (09:00→20:52)
[2019-03-26] MEDS: ASPIRIN 325 MG TABLET PO SCH (09:00)
[2019-03-26] MEDS: METOPROLOL SUCC 24HR ER 25 MG TAB.ER.24H. PO SCH (09:01)
[2019-03-26] MEDS: amLODIPine BESYLATE 10 MG TABLET PO SCH (09:01)
[2019-03-26] MEDS: CLOPIDOGREL BISULFATE 75 MG TABLET PO SCH (09:01)
[2019-03-26 11:00] VITALS: BP 121/70
[2019-03-26 11:21] LABS: BASO # 0.1 x10^3/uL (0.0-0.2); BASO % 1 % (0-3); EOS # 0.4 x10^3/uL (0.0-0.7); EOS % 5 % (0-3); HEMATOCRIT 42.4 % (36.0-47.0); HEMOGLOBIN 14.2 g/dL (12.0-15.5); LYMPH % 34 % (24-48); MEAN CORPUSCULAR HEMOGLOBIN 31 pg (25-35); MEAN CORPUSCULAR HGB CONC 33 g/dL (31-37); MEAN CORPUSCULAR VOLUME 93 fL (79-100); MONO # 0.9 x10^3/uL (0.0-1.1); MONO % 10 % (0-9); NEUT # 4.6 x10^3/uL (1.8-7.7); NEUT % 51 % (31-73); PLATELET COUNT 296 x10^3/uL (140-400); RED BLOOD COUNT 4.55 x10^6/uL (3.50-5.40); RED CELL DISTRIBUTION WIDTH 13.6 % (11.5-14.5)
[2019-03-26 11:36] LABS: CALCIUM 9.1 mg/dL (8.5-10.1); CREATININE 0.8 mg/dL (0.6-1.0); GFR 75.9; POTASSIUM 3.9 mmol/L (3.5-5.1)
--- NOTE | 2019-03-26 12:00 | SNU/HH DC ---
DISCHARGE WITH HOME HEALTH DISCHARGE INFORMATION: Condition on Discharge: Stable CODE STATUS: Code Status: Full HOME HEALTH: Face to Face: I certify this patient is under my care and that I, or a nurse practitioner or physician's assistant plant manager working with me, had a face to face encounter that meets the physician face to face encounter requirements with this patient on []. Medical Complications: ELPIDIO RN For Eval/Treatment: Yes Physical Therapy For: Evalulation/Treatment Occupational Therapy For: Evaluation/Treatment Speech Language Pathology For: Evaluation/Treatment CATTLE FEEDER For: Community Resources Pt Meets Homebound Status: Poor coordination w/ amb. POST DISCHARGE ORDERS: Activity Instructions for Disc: Activity as tolerated DIET AFTER DISCHARGE: Regular CERTIFICATION STATEMENT: Certification Statement: Certification Statement: Based on the above finding, I certify that this patient is confined to the home and needs intermittent detention care, physical therapy and/or speech therapy, or continues to need occupational therapy.~ This patient is under my care, and I have initiated the establishment of the plan of care.~ This patient will be followed by myself or a community physician who will periodically review the plan of care. LEBRON CURTIS III, DO Mar 26, 2019 12:00
--- NOTE | 2019-03-26 13:12 | PDOC ---
PROGRESS NOTE SUBJECTIVE: ROS: ROS: RESPIRATORY: Shortness of breath denies. Cough denies. UROLOGY: Denies blood in urine. Denies difficulty urinating HPI: Tolerating parish catheter. No complaints. No sensation of bladder fullness with 2 failed voiding trials this admission. Frequent urination and sense of incomplete emptying for several years prior. OBJECTIVE: Vital Signs: Vital Signs Date Time Temp Pulse Resp B/P (MAP) Pulse Ox O2 Delivery O2 Flow Rate FiO2 03/26/19 11:00 98.1 72 12 121/70 (87) 90 Room Air 98.1 03/26/19 09:10 98 Room Air 2.0 03/26/19 09:10 67 148/76 03/26/19 09:10 67 148/76 03/26/19 09:09 98 Room Air 2.0 03/26/19 08:00 Room Air 2.0 03/26/19 07:00 97.8 62 12 146/71 (96) 100 Room Air 97.8 03/26/19 06:45 98 Room Air 2.0 03/26/19 03:30 Room Air 03/26/19 03:30 97.6 67 16 148/76 (100) 98 Room Air 97.6 03/26/19 01:31 18 03/26/19 01:07 Room Air 03/25/19 22:17 98.1 63 16 129/68 (88) 99 Room Air 98.1 03/25/19 21:41 Room Air 03/25/19 20:04 Room Air 2.0 03/25/19 19:21 99 Room Air 2.0 03/25/19 18:51 99 Room Air 2.0 03/25/19 18:48 99 Room Air 2.0 03/25/19 15:18 99 Room Air 03/25/19 15:00 97.7 60 12 160/80 (106) 99 Room Air 97.7 03/25/19 14:00 97.8 56 24 147/90 100 Room Air 97.8 03/25/19 13:45 97.8 56 20 116/72 100 Room Air 2.0 97.8 03/25/19 13:35 Room Air 2.0 03/25/19 13:33 97.8 58 20 117/72 100 Nasal Cannula 2.0 97.8 I & O Intake and Output 03/26/19 07:00 Intake Total 1350 ml Output Total 1250 ml Balance 100 ml Intake Oral 500 ml IV Total 850 ml Output Urine Total 1250 ml PHYSICAL EXAM: Physical Exam: General: Pleasant, no acute distress, well groomed Respiratory: unlabored breathing LABS: Laboratory Tests Test 03/24/19 04:20 03/25/19 04:15 03/26/19 11:10 White Blood Count 10.3 x10^3/uL (4.0-11.0) 11.6 x10^3/uL (4.0-11.0) 9.0 x10^3/uL (4.0-11.0) Red Blood Count 4.79 x10^6/uL (3.50-5.40) 4.70 x10^6/uL (3.50-5.40) 4.55 x10^6/uL (3.50-5.40) Hemoglobin 14.8 g/dL (12.0-15.5) 14.5 g/dL (12.0-15.5) 14.2 g/dL (12.0-15.5) Hematocrit 44.3 % (36.0-47.0) 43.4 % (36.0-47.0) 42.4 % (36.0-47.0) Mean Corpuscular Volume 93 fL (79-100) 92 fL (79-100) 93 fL (79-100) Mean Corpuscular Hemoglobin 31 pg (25-35) 31 pg (25-35) 31 pg (25-35) Mean Corpuscular Hemoglobin Concent 34 g/dL (31-37) 34 g/dL (31-37) 33 g/dL (31-37) Red Cell Distribution Width 13.6 % (11.5-14.5) 13.6 % (11.5-14.5) 13.6 % (11.5-14.5) Platelet Count 258 x10^3/uL (140-400) 277 x10^3/uL (140-400) 296 x10^3/uL (140-400) Neutrophils (%) (Auto) 56 % (31-73) 56 % (31-73) 51 % (31-73) Lymphocytes (%) (Auto) 29 % (24-48) 28 % (24-48) 34 % (24-48) Monocytes (%) (Auto) 10 % (0-9) 10 % (0-9) 10 % (0-9) Eosinophils (%) (Auto) 5 % (0-3) 5 % (0-3) 5 % (0-3) Basophils (%) (Auto) 0 % (0-3) 1 % (0-3) 1 % (0-3) Neutrophils # (Auto) 5.8 x10^3/uL (1.8-7.7) 6.4 x10^3/uL (1.8-7.7) 4.6 x10^3/uL (1.8-7.7) Lymphocytes # (Auto) 3.0 x10^3/uL (1.0-4.8) 3.3 x10^3/uL (1.0-4.8) 3.0 x10^3/uL (1.0-4.8) Monocytes # (Auto) 1.0 x10^3/uL (0.0-1.1) 1.2 x10^3/uL (0.0-1.1) 0.9 x10^3/uL (0.0-1.1) Eosinophils # (Auto) 0.5 x10^3/uL (0.0-0.7) 0.5 x10^3/uL (0.0-0.7) 0.4 x10^3/uL (0.0-0.7) Basophils # (Auto) 0.0 x10^3/uL (0.0-0.2) 0.1 x10^3/uL (0.0-0.2) 0.1 x10^3/uL (0.0-0.2) Sodium Level 142 mmol/L (136-145) 141 mmol/L (136-145) 139 mmol/L (136-145) Potassium Level 3.9 mmol/L (3.5-5.1) 4.1 mmol/L (3.5-5.1) 3.9 mmol/L (3.5-5.1) Chloride Level 105 mmol/L (98-107) 103 mmol/L (98-107) 99 mmol/L (98-107) Carbon Dioxide Level 27 mmol/L (21-32) 29 mmol/L (21-32) 32 mmol/L (21-32) Anion Gap 10 (6-14) 9 (6-14) 8 (6-14) Blood Urea Nitrogen 18 mg/dL (7-20) 22 mg/dL (7-20) 16 mg/dL (7-20) Creatinine 0.7 mg/dL (0.6-1.0) 0.9 mg/dL (0.6-1.0) 0.8 mg/dL (0.6-1.0) Estimated GFR (Cockcroft-Gault) 88.6 66.3 75.9 BUN/Creatinine Ratio 26 (6-20) Glucose Level 125 mg/dL (70-99) 123 mg/dL (70-99) 98 mg/dL (70-99) Calcium Level 9.2 mg/dL (8.5-10.1) 9.5 mg/dL (8.5-10.1) 9.1 mg/dL (8.5-10.1) Total Bilirubin 0.3 mg/dL (0.2-1.0) Aspartate Amino Transf (AST/SGOT) 18 U/L (15-37) Alanine Aminotransferase (ALT/SGPT) 25 U/L (14-59) Alkaline Phosphatase 84 U/L (46-116) Total Protein 7.2 g/dL (6.4-8.2) Albumin 3.3 g/dL (3.4-5.0) Albumin/Globulin Ratio 0.8 (1.0-1.7) Microbiology 03/21/19 Throat Culture - Final, Complete 03/21/19 - Final, Complete MEDICATIONS: Current Medications Medications (Trade) Dose Ordered Sig/Dagoberto Start Time Stop Time Status Last Admin Dose Admin Acetaminophen (Tylenol) 650 mg PRN Q6HRS PRN 03/21/19 15:30 03/24/19 21:38 650 MG Acyclovir Sodium 700 mg/Dextrose 264 ml @ 267.945 mls/hr Q8HRS 03/21/19 06:00 03/21/19 12:17 DC 03/21/19 06:08 267.945 MLS/HR Amlodipine Besylate (Norvasc) 10 mg DAILY 03/25/19 09:00 03/26/19 09:10 10 MG Ampicillin Sodium 2 gm/Sodium Chloride 100 ml @ 200 mls/hr Q6H 03/21/19 07:00 03/21/19 12:17 DC 03/21/19 07:28 200 MLS/HR Aspirin (Medardo Aspirin) 325 mg DAILYWBKFT 03/22/19 20:30 03/26/19 09:09 325 MG Atorvastatin Calcium (Lipitor) 40 mg QHS 03/23/19 21:00 03/25/19 21:41 40 MG Benzocaine (Hurricaine One) 3 spray 1X ONCE 03/25/19 14:45 03/25/19 14:47 DC 03/25/19 14:44 3 SPRAY Ceftriaxone Sodium (Rocephin) 2 gm Q12HR 03/21/19 09:00 03/21/19 12:17 DC 03/21/19 08:46 2 GM Clopidogrel Bisulfate (Plavix) 75 mg DAILYWBKFT 03/24/19 10:00 03/26/19 09:10 75 MG Enoxaparin Sodium (Lovenox 40mg Syringe) 40 mg Q24H 03/21/19 15:00 03/25/19 15:18 40 MG Fentanyl Citrate (Fentanyl 2ml Vial) 100 mcg 1X ONCE 03/25/19 11:45 03/25/19 11:46 DC 03/25/19 11:51 100 MCG Gadoterate Meglumine (Dotarem) 14.2 ml 1X ONCE 03/22/19 12:15 03/22/19 12:16 DC 03/22/19 12:22 14.2 ML Info (CONTRAST GIVEN -- Rx MONITORING) 1 each PRN DAILY PRN 03/22/19 13:30 03/24/19 13:29 DC Iohexol (Omnipaque 350 Mg/ml) 75 ml 1X ONCE 03/22/19 13:45 03/22/19 13:46 DC Lidocaine HCl (Viscous Lidocaine) 15 ml STK-MED ONCE 03/25/19 10:44 03/25/19 10:44 DC Lidocaine HCl (Xylocaine 2% Topical 30gm Tube) 1 verónica 1X ONCE 03/25/19 14:45 03/25/19 14:47 DC 03/25/19 14:44 1 VERÓNICA Metoprolol Succinate (Toprol Xl) 12.5 mg DAILY 03/25/19 09:00 03/26/19 09:10 12.5 MG Midazolam HCl (Versed) 2 mg 1X ONCE 03/25/19 11:45 03/25/19 11:46 DC 03/25/19 11:51 2 MG Morphine Sulfate (Morphine Sulfate) 2 mg PRN Q4HRS PRN 03/21/19 21:00 03/26/19 10:16 DC 03/26/19 09:09 2 MG Oxycodone HCl (Roxicodone) 5 mg PRN Q6HRS PRN 03/21/19 20:00 03/24/19 12:11 DC 03/24/19 06:09 5 MG Oxycodone/ Acetaminophen (Percocet 10/325) 1 tab PRN Q6HRS PRN 03/24/19 12:15 03/26/19 06:45 1 TAB Propofol 20 ml @ As Directed STK-MED ONCE 03/25/19 11:56 03/25/19 11:56 DC Ringer's Solution 1,000 ml @ 75 mls/hr 1X ONCE 03/25/19 14:45 03/26/19 04:04 DC 03/25/19 14:44 75 MLS/HR Topiramate (Topamax) 25 mg BID 03/21/19 21:00 03/26/19 09:09 25 MG Vancomycin HCl (Vanco Per Pharmacy) 1 each PRN DAILY PRN 03/21/19 03:30 03/21/19 12:17 DC 03/21/19 05:49 1 EACH Vancomycin HCl (Vancomycin Trough Level) 1 each 1X ONCE 03/22/19 08:30 03/22/19 08:31 DC Vancomycin HCl 1.75 gm/Sodium Chloride 500 ml @ 250 mls/hr Q12H 03/21/19 09:00 UNV Vancomycin HCl 1 gm/Sodium Chloride 250 ml @ 250 mls/hr Q12H 03/21/19 09:00 03/21/19 12:17 DC 03/21/19 08:46 250 MLS/HR ASSESSMENT & PLAN Ok for discharge. Give bladder more time to recover. F/U as scheduled on 03/31 for voiding trial. SHELBI APPIAH MD Mar 26, 2019 13:12
--- NOTE | 2019-03-26 14:54 | PDOC ---
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 Subacute left cerebellar infract. Severe headaches. Neck pain. Left ICA >75% stenosis. Right ICA 7 mm aneurysmal dilatation. HTN. Urinary retention on 03/25/19. Smoking. Obesity. RECOMMENDATIONS/PLAN: Pain control, but avoid triptan family medications. Continue ASA 325 mg daily. Plan to add Plavix 75 mg daily after 7-10 days, and decrease ASA to 81 mg daily. Continue Metoprolol 37.5 mg daily. Continue Topamax 25 mg bid. Continue Lipitor 40 mg HS. FU with VS. FU with Urology. FU with Neurology in 1-2 months. FU with PCP. Discussed with patient, her mother and daughter in a great detail at bedside on 03/26/19. Patient education for smoking cessation. MRI and CTA: refer to reports. 03/26/19: headaches much improved. Past Medical History Cardiovascular: HTN Rheumatologic: Fibromyalgia Family History Hypertension Social History Smoke: <1 pack per day x 15 years. ALCOHOL: none Drugs: None Please see above. PAST SURGERY HISTORY: No major surgery recently. ALLERGY: Unknown MEDICATIONS: Refer to MAR REVIEW OF SYSTEMS: Constitutional: No malnutrition, weight loss, cachexia. Head: No recent traumatic brain or head injury. Skin: No edema, or rash. Ear: No infection. Eyes: No vision loss or color blindness. Nose: No bleeding or purulent discharges. Hearing: No hearing decrease. Neck: No injury. Breast: No history of cancer, masses,or discharges. Cardiac: HTN. Pulmonary: Smoking.. GI: No GI ulcer, GI bleeding. Urinary/genital: UTI. Endocrinologic: No cousin face, craniofacial dysmorphism, polydactyly. Skeletomuscular: No muscular atrophy, deformity. Neurological: see HP. Psychiatric: Denies drug use/abuse. Otherwise, not [id number] review of systems. PHYSICAL EXAMINATION: General appearance is in subacute distress. HEENT: Normocephalic and nontraumatic. Eyes, nose, ears, and throat are unremarkable. Neck is supple. No lymphadenopathy. No bruits are heard over the carotid artery. No crepitus. Cardiovascular: S1, S2, regular rate and rhythm. Pulmonary: Clear to auscultation bilaterally. Abdomen: Bowel sounds are positive. Abdomen is soft, nontender, and nondistended. Extremities: No rash, lesions, or edema. No restriction of range of motion NEUROLOGICAL EXAMINATION: Alert Oriented to time, place and person. PERRL. EOMI. CN: no focal findings. Muscle tone: within normal. Muscle strength: 5 DTR: 2 Plantar reflex: Flexor response bilaterally Gait: not examined in bed. Sensory exam: no abnormal findings. No cerebellar signs elicited. F-T-N test accurate. Objective Objective Vital Signs Date Time Temp Pulse Resp B/P (MAP) Pulse Ox O2 Delivery O2 Flow Rate FiO2 03/26/19 11:00 98.1 72 12 121/70 (87) 90 Room Air 98.1 03/26/19 09:10 2.0 Intake and Output 03/26/19 07:00 Intake Total 1350 ml Output Total 1250 ml Balance 100 ml Intake Oral 500 ml IV Total 850 ml Output Urine Total 1250 ml Vitals Signs Vitals VS - Last 72 Hours, by Label Date Time Temp Pulse Resp B/P (MAP) Pulse Ox O2 Delivery O2 Flow Rate FiO2 03/26/19 11:00 98.1 72 12 121/70 (87) 90 Room Air 98.1 03/26/19 09:10 98 Room Air 2.0 03/26/19 09:10 67 148/76 03/26/19 09:10 67 148/76 03/26/19 09:09 98 Room Air 2.0 03/26/19 08:00 Room Air 2.0 03/26/19 07:00 97.8 62 12 146/71 (96) 100 Room Air 97.8 03/26/19 06:45 98 Room Air 2.0 03/26/19 03:30 Room Air 03/26/19 03:30 97.6 67 16 148/76 (100) 98 Room Air 97.6 03/26/19 01:31 18 03/26/19 01:07 Room Air 03/25/19 22:17 98.1 63 16 129/68 (88) 99 Room Air 98.1 03/25/19 21:41 Room Air 03/25/19 20:04 Room Air 2.0 03/25/19 19:21 99 Room Air 2.0 03/25/19 18:51 99 Room Air 2.0 03/25/19 18:48 99 Room Air 2.0 03/25/19 15:18 99 Room Air 03/25/19 15:00 97.7 60 12 160/80 (106) 99 Room Air 97.7 03/25/19 14:00 97.8 56 24 147/90 100 Room Air 97.8 03/25/19 13:45 97.8 56 20 116/72 100 Room Air 2.0 97.8 03/25/19 13:35 Room Air 2.0 03/25/19 13:33 97.8 58 20 117/72 100 Nasal Cannula 2.0 97.8 03/25/19 11:51 15 99 Room Air 2.0 03/25/19 11:43 97.8 56 12 154/74 99 Room Air 2.0 97.8 03/25/19 11:00 97.8 56 12 154/74 (100) 98 Room Air 97.8 03/25/19 08:00 Room Air 2.0 03/25/19 07:38 96 Room Air 2.0 03/25/19 07:00 97.8 54 12 135/71 (92) 99 Room Air 97.8 Laboratory Laboratory Laboratory Tests Test 03/26/19 11:10 White Blood Count 9.0 x10^3/uL (4.0-11.0) Red Blood Count 4.55 x10^6/uL (3.50-5.40) Hemoglobin 14.2 g/dL (12.0-15.5) Hematocrit 42.4 % (36.0-47.0) Mean Corpuscular Volume 93 fL (79-100) Mean Corpuscular Hemoglobin 31 pg (25-35) Mean Corpuscular Hemoglobin Concent 33 g/dL (31-37) Red Cell Distribution Width 13.6 % (11.5-14.5) Platelet Count 296 x10^3/uL (140-400) Neutrophils (%) (Auto) 51 % (31-73) Lymphocytes (%) (Auto) 34 % (24-48) Monocytes (%) (Auto) 10 % (0-9) Eosinophils (%) (Auto) 5 % (0-3) Basophils (%) (Auto) 1 % (0-3) Neutrophils # (Auto) 4.6 x10^3/uL (1.8-7.7) Lymphocytes # (Auto) 3.0 x10^3/uL (1.0-4.8) Monocytes # (Auto) 0.9 x10^3/uL (0.0-1.1) Eosinophils # (Auto) 0.4 x10^3/uL (0.0-0.7) Basophils # (Auto) 0.1 x10^3/uL (0.0-0.2) Sodium Level 139 mmol/L (136-145) Potassium Level 3.9 mmol/L (3.5-5.1) Chloride Level 99 mmol/L (98-107) Carbon Dioxide Level 32 mmol/L (21-32) Anion Gap 8 (6-14) Blood Urea Nitrogen 16 mg/dL (7-20) Creatinine 0.8 mg/dL (0.6-1.0) Estimated GFR (Cockcroft-Gault) 75.9 Glucose Level 98 mg/dL (70-99) Calcium Level 9.1 mg/dL (8.5-10.1) Microbiology 03/21/19 Throat Culture - Final, Complete 03/21/19 - Final, Complete Comment Review of Relevant I have reviewed the following items merlyn (where applicable) has been applied. PARKER HOFFMAN MD Mar 26, 2019 14:54
[2019-03-26 15:00] VITALS: BP 149/80
[2019-03-26] MEDS: ENOXAPARIN 40 MG/0.4 ML SYRINGE. SQ SCH (15:00)
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
[2019-03-26 19:00] VITALS: BP 131/66
[2019-03-26] MEDS: ATORVASTATIN CALCIUM 40 MG TABLET. PO SCH (20:52)
[2019-03-26 22:59] VITALS: BP 139/71
[2019-03-27 03:00] VITALS: BP 158/78
[2019-03-27 04:34] LABS: BASO # 0.1 x10^3/uL (0.0-0.2); BASO % 2 % (0-3); EOS # 0.6 x10^3/uL (0.0-0.7); EOS % 6 % (0-3); HEMATOCRIT 38.8 % (36.0-47.0); LYMPH # 3.1 x10^3/uL (1.0-4.8); LYMPH % 31 % (24-48); MEAN CORPUSCULAR HEMOGLOBIN 31 pg (25-35); MEAN CORPUSCULAR HGB CONC 34 g/dL (31-37); MEAN CORPUSCULAR VOLUME 93 fL (79-100); MONO # 1.3 x10^3/uL (0.0-1.1); MONO % 13 % (0-9); NEUT # 4.9 x10^3/uL (1.8-7.7); NEUT % 49 % (31-73); PLATELET COUNT 290 x10^3/uL (140-400); RED BLOOD COUNT 4.18 x10^6/uL (3.50-5.40); RED CELL DISTRIBUTION WIDTH 13.2 % (11.5-14.5)
[2019-03-27 05:03] LABS: CALCIUM 8.9 mg/dL (8.5-10.1); CREATININE 0.8 mg/dL (0.6-1.0); GFR 75.9; POTASSIUM 4.2 mmol/L (3.5-5.1)
[2019-03-27] MEDS: oxyCODONE/APAP 10/325 1 TAB TABLET PO PRN ×2 (05:35→20:16)
[2019-03-27 07:51] VITALS: BP 165/90
[2019-03-27] MEDS: CLOPIDOGREL BISULFATE 75 MG TABLET PO SCH (09:08)
[2019-03-27] MEDS: ASPIRIN 325 MG TABLET PO SCH (09:08)
[2019-03-27] MEDS: TOPIRAMATE 25 MG TABLET. PO SCH ×2 (09:09→20:14)
[2019-03-27] MEDS: METOPROLOL SUCC 24HR ER 25 MG TAB.ER.24H. PO SCH (09:09)
[2019-03-27] MEDS: amLODIPine BESYLATE 10 MG TABLET PO SCH (09:09)
[2019-03-27] MEDS: ACETAMINOPHEN 325 MG TABLET. PO PRN (10:28)
[2019-03-27 11:46] VITALS: BP 149/82
--- NOTE | 2019-03-27 13:34 | PDOC ---
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 Neck pain & headache Fibromyalgia HTN Osteoarthritis Hysterectomy Tonsillectomy History of Present Illness History of Present Illness 03/27/19 Resting with NAD YRIS CHERRY 03/25/19 Pt seen and examined (well-appearing; in no acute distress) Chart reviewed YRIS CHERRY 03/24/19 Pt seen and examined Chart reviewed MRI/CT reviewed LP reviewed (CSF not impressive for meningitis) YRIS CHERRY Vitals/I&O Vitals/I&O: Vital Signs Date Time Temp Pulse Resp B/P (MAP) Pulse Ox O2 Delivery O2 Flow Rate FiO2 03/27/19 11:46 97.5 70 18 149/82 (104) 99 Room Air 97.5 03/26/19 16:24 2.0 I & O 03/26/19 03/26/19 03/27/19 15:00 23:00 07:00 Intake Total 2300 ml Balance 2300 ml Physical Exam General: Alert, Oriented X3, Cooperative, No acute distress Heart: Regular rate, Normal S1, Normal S2, No murmurs Lungs: Clear Abdomen: Soft, No tenderness Extremities: No cyanosis, No edema Skin: No breakdown, No significant lesion Labs Labs: Laboratory Tests Test 03/27/19 04:25 White Blood Count 10.0 x10^3/uL (4.0-11.0) Red Blood Count 4.18 x10^6/uL (3.50-5.40) Hemoglobin 13.0 g/dL (12.0-15.5) Hematocrit 38.8 % (36.0-47.0) Mean Corpuscular Volume 93 fL (79-100) Mean Corpuscular Hemoglobin 31 pg (25-35) Mean Corpuscular Hemoglobin Concent 34 g/dL (31-37) Red Cell Distribution Width 13.2 % (11.5-14.5) Platelet Count 290 x10^3/uL (140-400) Neutrophils (%) (Auto) 49 % (31-73) Lymphocytes (%) (Auto) 31 % (24-48) Monocytes (%) (Auto) 13 % (0-9) Eosinophils (%) (Auto) 6 % (0-3) Basophils (%) (Auto) 2 % (0-3) Neutrophils # (Auto) 4.9 x10^3/uL (1.8-7.7) Lymphocytes # (Auto) 3.1 x10^3/uL (1.0-4.8) Monocytes # (Auto) 1.3 x10^3/uL (0.0-1.1) Eosinophils # (Auto) 0.6 x10^3/uL (0.0-0.7) Basophils # (Auto) 0.1 x10^3/uL (0.0-0.2) Sodium Level 141 mmol/L (136-145) Potassium Level 4.2 mmol/L (3.5-5.1) Chloride Level 105 mmol/L (98-107) Carbon Dioxide Level 27 mmol/L (21-32) Anion Gap 9 (6-14) Blood Urea Nitrogen 17 mg/dL (7-20) Creatinine 0.8 mg/dL (0.6-1.0) Estimated GFR (Cockcroft-Gault) 75.9 Glucose Level 103 mg/dL (70-99) Calcium Level 8.9 mg/dL (8.5-10.1) Review of Systems Review of Systems: Unable to obtain, pt resting with NAD Assessment and Plan Assessmemt and Plan Assessment: AMS Acute CVA to left dorsal medulla and cerebellum LICA stenosis and ANGELA aneurysm Neck pain & headache Fibromyalgia HTN Osteoarthritis Hysterectomy Tonsillectomy Plan: Cardiac monitoring Appreciate subspecialist input Pain control PT/OT DVT prophylaxis Full code Rehab evaluation D/C disposition pending, possible MAR Comment Review of Relevant I have reviewed the following items merlyn (where applicable) has been applied. LEBRON CURTIS III DO Mar 27, 2019 13:34
--- NOTE | 2019-03-27 14:11 | PDOC ---
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 Subacute left cerebellar infract. Severe headaches. Neck pain. Left ICA >75% stenosis. Right ICA 7 mm aneurysmal dilatation. HTN. Urinary retention on 03/25/19. Smoking. Obesity. RECOMMENDATIONS/PLAN: Pain control, but avoid triptan family medications. Continue ASA 325 mg daily. Plan to add Plavix 75 mg daily after 7-10 days, and decrease ASA to 81 mg daily. Continue Metoprolol 37.5 mg daily. Increase Topamax to 50 mg bid. Continue Lipitor 40 mg HS. FU with VS. FU with Urology. FU with Neurology if has symptoms. FU with PCP. Patient education for smoking cessation. MRI and CTA: refer to reports. 03/27/19: headaches much controlled. Past Medical History Cardiovascular: HTN Rheumatologic: Fibromyalgia Family History Hypertension Social History Smoke: <1 pack per day x 15 years. ALCOHOL: none Drugs: None Please see above. PAST SURGERY HISTORY: No major surgery recently. ALLERGY: Unknown MEDICATIONS: Refer to MAR REVIEW OF SYSTEMS: Constitutional: No malnutrition, weight loss, cachexia. Head: No recent traumatic brain or head injury. Skin: No edema, or rash. Ear: No infection. Eyes: No vision loss or color blindness. Nose: No bleeding or purulent discharges. Hearing: No hearing decrease. Neck: No injury. Breast: No history of cancer, masses,or discharges. Cardiac: HTN. Pulmonary: Smoking.. GI: No GI ulcer, GI bleeding. Urinary/genital: UTI. Endocrinologic: No cousin face, craniofacial dysmorphism, polydactyly. Skeletomuscular: No muscular atrophy, deformity. Neurological: see HP. Psychiatric: Denies drug use/abuse. Otherwise, not [id number] review of systems. PHYSICAL EXAMINATION: General appearance is in subacute distress. HEENT: Normocephalic and nontraumatic. Eyes, nose, ears, and throat are unrema rkable. Neck is supple. No lymphadenopathy. No bruits are heard over the carotid artery. No crepitus. Cardiovascular: S1, S2, regular rate and rhythm. Pulmonary: Clear to auscultation bilaterally. Abdomen: Bowel sounds are positive. Abdomen is soft, nontender, and nondistended. Extremities: No rash, lesions, or edema. No restriction of range of motion NEUROLOGICAL EXAMINATION: Alert Oriented to time, place and person. PERRL. EOMI. CN: no focal findings. Muscle tone: within normal. Muscle strength: 5 DTR: 2 Plantar reflex: Flexor response bilaterally Gait: At her baseline walking. Sensory exam: no abnormal findings. No cerebellar signs elicited. F-T-N test accurate. Objective Objective Vital Signs Date Time Temp Pulse Resp B/P (MAP) Pulse Ox O2 Delivery O2 Flow Rate FiO2 03/27/19 11:46 97.5 70 18 149/82 (104) 99 Room Air 97.5 03/26/19 16:24 2.0 Intake and Output 03/27/19 07:00 Intake Total 2300 ml Balance 2300 ml Intake Oral 2300 ml Vitals Signs Vitals VS - Last 72 Hours, by Label Date Time Temp Pulse Resp B/P (MAP) Pulse Ox O2 Delivery O2 Flow Rate FiO2 03/27/19 11:46 97.5 70 18 149/82 (104) 99 Room Air 97.5 03/27/19 09:09 68 165/90 03/27/19 09:09 68 165/90 03/27/19 08:00 Room Air 03/27/19 07:51 97.5 68 18 165/90 (115) 100 Room Air 97.5 03/27/19 03:00 97.6 68 16 158/78 (104) 99 Room Air 97.6 03/26/19 22:59 98.2 77 16 139/71 (93) 97 Room Air 98.2 03/26/19 19:00 98.2 77 16 131/66 (87) 97 Room Air 98.2 03/26/19 16:24 90 Room Air 2.0 03/26/19 15:00 97.8 70 12 149/80 (103) 99 Room Air 97.8 03/26/19 11:00 98.1 72 12 121/70 (87) 90 Room Air 98.1 03/26/19 09:10 98 Room Air 2.0 03/26/19 09:10 67 148/76 03/26/19 09:10 67 148/76 03/26/19 09:09 98 Room Air 2.0 03/26/19 08:00 Room Air 2.0 03/26/19 07:00 97.8 62 12 146/71 (96) 100 Room Air 97.8 Laboratory Laboratory Laboratory Tests Test 03/27/19 04:25 White Blood Count 10.0 x10^3/uL (4.0-11.0) Red Blood Count 4.18 x10^6/uL (3.50-5.40) Hemoglobin 13.0 g/dL (12.0-15.5) Hematocrit 38.8 % (36.0-47.0) Mean Corpuscular Volume 93 fL (79-100) Mean Corpuscular Hemoglobin 31 pg (25-35) Mean Corpuscular Hemoglobin Concent 34 g/dL (31-37) Red Cell Distribution Width 13.2 % (11.5-14.5) Platelet Count 290 x10^3/uL (140-400) Neutrophils (%) (Auto) 49 % (31-73) Lymphocytes (%) (Auto) 31 % (24-48) Monocytes (%) (Auto) 13 % (0-9) Eosinophils (%) (Auto) 6 % (0-3) Basophils (%) (Auto) 2 % (0-3) Neutrophils # (Auto) 4.9 x10^3/uL (1.8-7.7) Lymphocytes # (Auto) 3.1 x10^3/uL (1.0-4.8) Monocytes # (Auto) 1.3 x10^3/uL (0.0-1.1) Eosinophils # (Auto) 0.6 x10^3/uL (0.0-0.7) Basophils # (Auto) 0.1 x10^3/uL (0.0-0.2) Sodium Level 141 mmol/L (136-145) Potassium Level 4.2 mmol/L (3.5-5.1) Chloride Level 105 mmol/L (98-107) Carbon Dioxide Level 27 mmol/L (21-32) Anion Gap 9 (6-14) Blood Urea Nitrogen 17 mg/dL (7-20) Creatinine 0.8 mg/dL (0.6-1.0) Estimated GFR (Cockcroft-Gault) 75.9 Glucose Level 103 mg/dL (70-99) Calcium Level 8.9 mg/dL (8.5-10.1) Microbiology 03/21/19 Throat Culture - Final, Complete 03/21/19 - Final, Complete Comment Review of Relevant I have reviewed the following items merlyn (where applicable) has been applied. PARKER HOFFMAN MD Mar 27, 2019 14:11
--- NOTE | 2019-03-27 14:14 | PDOC ---
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 Subacute left cerebellar infract. Severe headaches. Neck pain. Left ICA >75% stenosis. Right ICA 7 mm aneurysmal dilatation. HTN. Urinary retention on 03/25/19. Smoking. Obesity. RECOMMENDATIONS/PLAN: Pain control, but avoid triptan family medications. Change ASA to 81 mg daily. Plavix 75 mg daily was already started by other team. Continue Metoprolol 37.5 mg daily. Increase Topamax to 50 mg bid. Continue Lipitor 40 mg HS. FU with VS. FU with Urology. FU with Neurology if has symptoms. FU with PCP. Patient education for smoking cessation. MRI and CTA: refer to reports. 03/27/19: headaches much controlled. Past Medical History Cardiovascular: HTN Rheumatologic: Fibromyalgia Family History Hypertension Social History Smoke: <1 pack per day x 15 years. ALCOHOL: none Drugs: None Please see above. PAST SURGERY HISTORY: No major surgery recently. ALLERGY: Unknown MEDICATIONS: Refer to MAR REVIEW OF SYSTEMS: Constitutional: No malnutrition, weight loss, cachexia. Head: No recent traumatic brain or head injury. Skin: No edema, or rash. Ear: No infection. Eyes: No vision loss or color blindness. Nose: No bleeding or purulent discharges. Hearing: No hearing decrease. Neck: No injury. Breast: No history of cancer, masses,or discharges. Cardiac: HTN. Pulmonary: Smoking.. GI: No GI ulcer, GI bleeding. Urinary/genital: UTI. Endocrinologic: No cousin face, craniofacial dysmorphism, polydactyly. Skeletomuscular: No muscular atrophy, deformity. Neurological: see HP. Psychiatric: Denies drug use/abuse. Otherwise, not [id number] review of systems. PHYSICAL EXAMINATION: General appearance is in subacute distress. HEENT: Normocephalic and nontraumatic. Eyes, nose, ears, and throat are unremarkable. Neck is supple. No lymphadenopathy. No bruits are heard over the carotid artery. No crepitus. Cardiovascular: S1, S2, regular rate and rhythm. Pulmonary: Clear to auscultation bilaterally. Abdomen: Bowel sounds are positive. Abdomen is soft, nontender, and nondis tended. Extremities: No rash, lesions, or edema. No restriction of range of motion NEUROLOGICAL EXAMINATION: Alert Oriented to time, place and person. PERRL. EOMI. CN: no focal findings. Muscle tone: within normal. Muscle strength: 5 DTR: 2 Plantar reflex: Flexor response bilaterally Gait: At her baseline walking. Sensory exam: no abnormal findings. No cerebellar signs elicited. F-T-N test accurate. Objective Objective Vital Signs Date Time Temp Pulse Resp B/P (MAP) Pulse Ox O2 Delivery O2 Flow Rate FiO2 03/27/19 11:46 97.5 70 18 149/82 (104) 99 Room Air 97.5 03/26/19 16:24 2.0 Intake and Output 03/27/19 07:00 Intake Total 2300 ml Balance 2300 ml Intake Oral 2300 ml Vitals Signs Vitals VS - Last 72 Hours, by Label Date Time Temp Pulse Resp B/P (MAP) Pulse Ox O2 Delivery O2 Flow Rate FiO2 03/27/19 11:46 97.5 70 18 149/82 (104) 99 Room Air 97.5 03/27/19 09:09 68 165/90 03/27/19 09:09 68 165/90 03/27/19 08:00 Room Air 03/27/19 07:51 97.5 68 18 165/90 (115) 100 Room Air 97.5 03/27/19 03:00 97.6 68 16 158/78 (104) 99 Room Air 97.6 03/26/19 22:59 98.2 77 16 139/71 (93) 97 Room Air 98.2 03/26/19 19:00 98.2 77 16 131/66 (87) 97 Room Air 98.2 03/26/19 16:24 90 Room Air 2.0 03/26/19 15:00 97.8 70 12 149/80 (103) 99 Room Air 97.8 03/26/19 11:00 98.1 72 12 121/70 (87) 90 Room Air 98.1 03/26/19 09:10 98 Room Air 2.0 03/26/19 09:10 67 148/76 03/26/19 09:10 67 148/76 03/26/19 09:09 98 Room Air 2.0 03/26/19 08:00 Room Air 2.0 03/26/19 07:00 97.8 62 12 146/71 (96) 100 Room Air 97.8 Laboratory Laboratory Laboratory Tests Test 03/27/19 04:25 White Blood Count 10.0 x10^3/uL (4.0-11.0) Red Blood Count 4.18 x10^6/uL (3.50-5.40) Hemoglobin 13.0 g/dL (12.0-15.5) Hematocrit 38.8 % (36.0-47.0) Mean Corpuscular Volume 93 fL (79-100) Mean Corpuscular Hemoglobin 31 pg (25-35) Mean Corpuscular Hemoglobin Concent 34 g/dL (31-37) Red Cell Distribution Width 13.2 % (11.5-14.5) Platelet Count 290 x10^3/uL (140-400) Neutrophils (%) (Auto) 49 % (31-73) Lymphocytes (%) (Auto) 31 % (24-48) Monocytes (%) (Auto) 13 % (0-9) Eosinophils (%) (Auto) 6 % (0-3) Basophils (%) (Auto) 2 % (0-3) Neutrophils # (Auto) 4.9 x10^3/uL (1.8-7.7) Lymphocytes # (Auto) 3.1 x10^3/uL (1.0-4.8) Monocytes # (Auto) 1.3 x10^3/uL (0.0-1.1) Eosinophils # (Auto) 0.6 x10^3/uL (0.0-0.7) Basophils # (Auto) 0.1 x10^3/uL (0.0-0.2) Sodium Level 141 mmol/L (136-145) Potassium Level 4.2 mmol/L (3.5-5.1) Chloride Level 105 mmol/L (98-107) Carbon Dioxide Level 27 mmol/L (21-32) Anion Gap 9 (6-14) Blood Urea Nitrogen 17 mg/dL (7-20) Creatinine 0.8 mg/dL (0.6-1.0) Estimated GFR (Cockcroft-Gault) 75.9 Glucose Level 103 mg/dL (70-99) Calcium Level 8.9 mg/dL (8.5-10.1) Microbiology 03/21/19 Throat Culture - Final, Complete 03/21/19 - Final, Complete Comment Review of Relevant I have reviewed the following items merlyn (where applicable) has been applied. PARKER HOFFMAN MD Mar 27, 2019 14:14
[2019-03-27 15:00] VITALS: BP 122/63
[2019-03-27] MEDS: ENOXAPARIN 40 MG/0.4 ML SYRINGE. SQ SCH (15:51)
[2019-03-27 19:00] VITALS: BP 128/56
[2019-03-27] MEDS: ATORVASTATIN CALCIUM 40 MG TABLET. PO SCH (20:14)
[2019-03-27 23:00] VITALS: BP 140/61
[2019-03-28] MEDS: oxyCODONE/APAP 10/325 1 TAB TABLET PO PRN ×3 (02:28→15:57)
[2019-03-28 03:00] VITALS: BP 132/68
[2019-03-28 04:21] LABS: BASO # 0.1 x10^3/uL (0.0-0.2); BASO % 1 % (0-3); EOS # 0.6 x10^3/uL (0.0-0.7); EOS % 5 % (0-3); HEMATOCRIT 38.3 % (36.0-47.0); HEMOGLOBIN 12.7 g/dL (12.0-15.5); LYMPH # 3.6 x10^3/uL (1.0-4.8); LYMPH % 31 % (24-48); MEAN CORPUSCULAR HEMOGLOBIN 31 pg (25-35); MEAN CORPUSCULAR HGB CONC 33 g/dL (31-37); MEAN CORPUSCULAR VOLUME 93 fL (79-100); MONO # 1.2 x10^3/uL (0.0-1.1); MONO % 11 % (0-9); NEUT # 6.1 x10^3/uL (1.8-7.7); NEUT % 52 % (31-73); PLATELET COUNT 311 x10^3/uL (140-400); RED CELL DISTRIBUTION WIDTH 13.2 % (11.5-14.5); WHITE BLOOD COUNT 11.5 x10^3/uL (4.0-11.0)
[2019-03-28 05:38] LABS: CALCIUM 8.5 mg/dL (8.5-10.1); CREATININE 0.7 mg/dL (0.6-1.0); GFR 88.6
[2019-03-28 07:00] VITALS: BP 123/91
[2019-03-28] MEDS: CLOPIDOGREL BISULFATE 75 MG TABLET PO SCH (08:15)
[2019-03-28] MEDS: ASPIRIN ENTERIC COATED 81 MG TABLET.DR. PO SCH (08:15)
[2019-03-28] MEDS: TOPIRAMATE 25 MG TABLET. PO SCH ×2 (08:15→21:32)
[2019-03-28] MEDS: ACETAMINOPHEN 325 MG TABLET. PO PRN ×2 (08:16→19:41)
[2019-03-28] MEDS: amLODIPine BESYLATE 10 MG TABLET PO SCH (08:16)
[2019-03-28] MEDS: METOPROLOL SUCC 24HR ER 25 MG TAB.ER.24H. PO SCH (08:16)
[2019-03-28] MEDS ORDERED: VALPROIC ACID (AS SODIUM SALT) 500 MG in IV DEXTROSE 5% 50 ML IV ONE (08:45)
[2019-03-28] MEDS ORDERED: KETOROLAC 15 MG/ML VIAL. IV ONE (08:45)
--- NOTE | 2019-03-28 09:53 | PDOC ---
PROGRESS NOTES Assessment Problems Medical Problems: (1) Anxiety Status: Chronic (2) CVA (cerebral vascular accident) Status: Acute (3) Fibromyalgia Status: Acute (4) Headache Status: Acute (5) HTN (hypertension) Status: Chronic (6) Leukocytosis Status: Acute (7) Neck pain Status: Acute (8) Obesity Status: Chronic (9) Stenosis of left internal carotid artery Status: Acute 2 small acute left dorsal medullar and left cerebellar infarcts. Subacute left cerebellar infract. Severe headaches. Neck pain. Left ICA >75% stenosis. Right ICA 7 mm aneurysmal dilatation. HTN. Urinary retention on 03/25/19. Smoking. Obesity. I saw her in the office in 2014 as a referral from [facility], I felt that there was fibromyalgia and nonorganic disease, and told the patient I simply needed more information as she had had extensive workup [facility], but I never received records Plan I have ordered Depekon, Toradol, stat repeat head and cervical spine CT scans Avoid triptans, given acute strokes. ASA and Plavix Metoprolol and Topamax Lipitor Vascular surgery and urology also following Patient education for smoking cessation. Subjective Has severe greater than 10/10 headache and neck pain starting this morning Objective Vital Signs Date Time Temp Pulse Resp B/P (MAP) Pulse Ox O2 Delivery O2 Flow Rate FiO2 03/28/19 08:36 Room Air 03/28/19 08:16 82 123/91 03/28/19 07:00 98.3 18 97 98.3 03/28/19 03:00 2.0 Intake and Output 03/28/19 06:59 Intake Total 1420 ml Output Total 1400 ml Balance 20 ml Intake Oral 1420 ml Output Urine Total 1400 ml PHYSICAL EXAM Appears to be in quite a bit of pain Alert. Oriented to time, place and person. PERRL. EOMI. CN: no focal findings. Muscle tone: normal. Muscle strength: 5/5 DTR: 2+ Plantar reflex: flexor Gait: not examined in bed. Sensory exam: no abnormal findings. No cerebellar signs elicited. Review of Relevant I have reviewed the following items merlyn (where applicable) has been applied. Labs Laboratory Tests Test 03/26/19 11:10 03/27/19 04:25 03/28/19 04:00 White Blood Count 9.0 x10^3/uL (4.0-11.0) 10.0 x10^3/uL (4.0-11.0) 11.5 x10^3/uL (4.0-11.0) Red Blood Count 4.55 x10^6/uL (3.50-5.40) 4.18 x10^6/uL (3.50-5.40) 4.10 x10^6/uL (3.50-5.40) Hemoglobin 14.2 g/dL (12.0-15.5) 13.0 g/dL (12.0-15.5) 12.7 g/dL (12.0-15.5) Hematocrit 42.4 % (36.0-47.0) 38.8 % (36.0-47.0) 38.3 % (36.0-47.0) Mean Corpuscular Volume 93 fL (79-100) 93 fL (79-100) 93 fL (79-100) Mean Corpuscular Hemoglobin 31 pg (25-35) 31 pg (25-35) 31 pg (25-35) Mean Corpuscular Hemoglobin Concent 33 g/dL (31-37) 34 g/dL (31-37) 33 g/dL (31-37) Red Cell Distribution Width 13.6 % (11.5-14.5) 13.2 % (11.5-14.5) 13.2 % (11.5-14.5) Platelet Count 296 x10^3/uL (140-400) 290 x10^3/uL (140-400) 311 x10^3/uL (140-400) Neutrophils (%) (Auto) 51 % (31-73) 49 % (31-73) 52 % (31-73) Lymphocytes (%) (Auto) 34 % (24-48) 31 % (24-48) 31 % (24-48) Monocytes (%) (Auto) 10 % (0-9) 13 % (0-9) 11 % (0-9) Eosinophils (%) (Auto) 5 % (0-3) 6 % (0-3) 5 % (0-3) Basophils (%) (Auto) 1 % (0-3) 2 % (0-3) 1 % (0-3) Neutrophils # (Auto) 4.6 x10^3/uL (1.8-7.7) 4.9 x10^3/uL (1.8-7.7) 6.1 x10^3/uL (1.8-7.7) Lymphocytes # (Auto) 3.0 x10^3/uL (1.0-4.8) 3.1 x10^3/uL (1.0-4.8) 3.6 x10^3/uL (1.0-4.8) Monocytes # (Auto) 0.9 x10^3/uL (0.0-1.1) 1.3 x10^3/uL (0.0-1.1) 1.2 x10^3/uL (0.0-1.1) Eosinophils # (Auto) 0.4 x10^3/uL (0.0-0.7) 0.6 x10^3/uL (0.0-0.7) 0.6 x10^3/uL (0.0-0.7) Basophils # (Auto) 0.1 x10^3/uL (0.0-0.2) 0.1 x10^3/uL (0.0-0.2) 0.1 x10^3/uL (0.0-0.2) Sodium Level 139 mmol/L (136-145) 141 mmol/L (136-145) 141 mmol/L (136-145) Potassium Level 3.9 mmol/L (3.5-5.1) 4.2 mmol/L (3.5-5.1) 4.0 mmol/L (3.5-5.1) Chloride Level 99 mmol/L (98-107) 105 mmol/L (98-107) 105 mmol/L (98-107) Carbon Dioxide Level 32 mmol/L (21-32) 27 mmol/L (21-32) 29 mmol/L (21-32) Anion Gap 8 (6-14) 9 (6-14) 7 (6-14) Blood Urea Nitrogen 16 mg/dL (7-20) 17 mg/dL (7-20) 14 mg/dL (7-20) Creatinine 0.8 mg/dL (0.6-1.0) 0.8 mg/dL (0.6-1.0) 0.7 mg/dL (0.6-1.0) Estimated GFR (Cockcroft-Gault) 75.9 75.9 88.6 Glucose Level 98 mg/dL (70-99) 103 mg/dL (70-99) 100 mg/dL (70-99) Calcium Level 9.1 mg/dL (8.5-10.1) 8.9 mg/dL (8.5-10.1) 8.5 mg/dL (8.5-10.1) Laboratory Tests Test 03/28/19 04:00 White Blood Count 11.5 x10^3/uL (4.0-11.0) Red Blood Count 4.10 x10^6/uL (3.50-5.40) Hemoglobin 12.7 g/dL (12.0-15.5) Hematocrit 38.3 % (36.0-47.0) Mean Corpuscular Volume 93 fL (79-100) Mean Corpuscular Hemoglobin 31 pg (25-35) Mean Corpuscular Hemoglobin Concent 33 g/dL (31-37) Red Cell Distribution Width 13.2 % (11.5-14.5) Platelet Count 311 x10^3/uL (140-400) Neutrophils (%) (Auto) 52 % (31-73) Lymphocytes (%) (Auto) 31 % (24-48) Monocytes (%) (Auto) 11 % (0-9) Eosinophils (%) (Auto) 5 % (0-3) Basophils (%) (Auto) 1 % (0-3) Neutrophils # (Auto) 6.1 x10^3/uL (1.8-7.7) Lymphocytes # (Auto) 3.6 x10^3/uL (1.0-4.8) Monocytes # (Auto) 1.2 x10^3/uL (0.0-1.1) Eosinophils # (Auto) 0.6 x10^3/uL (0.0-0.7) Basophils # (Auto) 0.1 x10^3/uL (0.0-0.2) Sodium Level 141 mmol/L (136-145) Potassium Level 4.0 mmol/L (3.5-5.1) Chloride Level 105 mmol/L (98-107) Carbon Dioxide Level 29 mmol/L (21-32) Anion Gap 7 (6-14) Blood Urea Nitrogen 14 mg/dL (7-20) Creatinine 0.7 mg/dL (0.6-1.0) Estimated GFR (Cockcroft-Gault) 88.6 Glucose Level 100 mg/dL (70-99) Calcium Level 8.5 mg/dL (8.5-10.1) Microbiology 03/21/19 Throat Culture - Final, Complete 03/21/19 - Final, Complete Medications Current Medications Vancomycin HCl (Vanco Per Pharmacy) 1 each PRN DAILY PRN MC SEE COMMENTS Last administered on 03/21/19at 05:49; Start 03/21/19 at 03:30; Stop 03/21/19 at 12:17; Status DC Ampicillin Sodium 2 gm/Sodium Chloride 100 ml @ 200 mls/hr Q6H IV Last administered on 03/21/19at 07:28; Start 03/21/19 at 07:00; Stop 03/21/19 at 12:17; Status DC Acyclovir Sodium 700 mg/Dextrose 264 ml @ 267.945 mls/hr Q8HRS IV Last administered on 03/21/19at 06:08; Start 03/21/19 at 06:00; Stop 03/21/19 at 12:17; Status DC Ceftriaxone Sodium (Rocephin) 2 gm Q12HR IVP Last administered on 03/21/19at 08:46; Start 03/21/19 at 09:00; Stop 03/21/19 at 12:17; Status DC Vancomycin HCl 1.75 gm/Sodium Chloride 500 ml @ 250 mls/hr Q12H IV ; Start 03/21/19 at 09:00; Status UNV Vancomycin HCl 1 gm/Sodium Chloride 250 ml @ 250 mls/hr Q12H IV Last administered on 03/21/19at 08:46; Start 03/21/19 at 09:00; Stop 03/21/19 at 12:17; Status DC Vancomycin HCl (Vancomycin Trough Level) 1 each 1X ONCE MC ; Start 03/22/19 at 08:30; Stop 03/22/19 at 08:31; Status DC Enoxaparin Sodium (Lovenox 40mg Syringe) 40 mg Q24H SQ Last administered on 03/27/19at 15:51; Start 03/21/19 at 15:00 Amlodipine Besylate (Norvasc) 5 mg DAILY PO Last administered on 03/24/19 08:19; Start 03/21/19 at 16:00; Stop 03/24/19 at 10:49; Status DC Acetaminophen (Tylenol) 650 mg PRN Q6HRS PRN PO HEADACHE Last administered on 03/28/19 08:16; Start 03/21/19 at 15:30 Metoprolol Succinate (Toprol Xl) 25 mg DAILY PO Last administered on 03/24/19at 08:19; Start 03/21/19 at 20:00; Stop 03/24/19 at 10:49; Status DC Topiramate (Topamax) 25 mg BID PO Last administered on 03/27/19at 09:09; Start 03/21/19 at 21:00; Stop 03/27/19 at 14:13; Status DC Oxycodone HCl (Roxicodone) 5 mg PRN Q6HRS PRN PO PAIN Last administered on 03/24/19at 06:09; Start 03/21/19 at 20:00; Stop 03/24/19 at 12:11; Status DC Morphine Sulfate (Morphine Sulfate) 2 mg PRN Q4HRS PRN IV PAIN Last administered on 03/26/19at 09:09; Start 03/21/19 at 21:00; Stop 03/26/19 at 10:16; Status DC Gadoterate Meglumine (Dotarem) 14.2 ml 1X ONCE IVP Last administered on 03/22/19at 12:22; Start 03/22/19 at 12:15; Stop 03/22/19 at 12:16; Status DC Iohexol (Omnipaque 350 Mg/ml) 75 ml 1X ONCE IV Last administered on 03/22/19at 13:44; Start 03/22/19 at 13:30; Stop 03/22/19 at 13:31; Status DC Info (CONTRAST GIVEN -- Rx MONITORING) 1 each PRN DAILY PRN MC SEE COMMENTS; Start 03/22/19 at 13:30; Stop 03/24/19 at 13:29; Status DC Iohexol (Omnipaque 350 Mg/ml) 75 ml 1X ONCE IV ; Start 03/22/19 at 13:45; Stop 03/22/19 at 13:46; Status DC Aspirin (Medardo Aspirin) 325 mg DAILYWBKFT PO Last administered on 03/27/19 09:09; Start 03/22/19 at 20:30; Stop 03/27/19 at 14:15; Status DC Atorvastatin Calcium (Lipitor) 10 mg QHS PO Last administered on 03/22/19 21:26; Start 03/22/19 at 21:00; Stop 03/23/19 at 10:24; Status DC Atorvastatin Calcium (Lipitor) 40 mg QHS PO Last administered on 03/27/19at 20:16; Start 03/23/19 at 21:00 Clopidogrel Bisulfate (Plavix) 75 mg DAILYWBKFT PO Last administered on 03/28/19 08:16; Start 03/24/19 at 10:00 Amlodipine Besylate (Norvasc) 10 mg DAILY PO Last administered on 03/28/19 08:16; Start 03/25/19 at 09:00 Metoprolol Succinate (Toprol Xl) 12.5 mg DAILY PO Last administered on 03/28/19 08:16; Start 03/25/19 at 09:00 Oxycodone/ Acetaminophen (Percocet 10/325) 1 tab PRN Q6HRS PRN PO MODERATE TO SEVERE PAIN Last administered on 03/28/19 08:36; Start 03/24/19 at 12:15 Ringer's Solution 1,000 ml @ 50 mls/hr Q20H IV Last administered on 03/25/19at 11:52; Start 03/25/19 at 07:00; Stop 03/25/19 at 18:59; Status DC Benzocaine (Hurricaine One) 1 spray STK-MED ONCE .ROUTE ; Start 03/25/19 at 10:44; Stop 03/25/19 at 10:44; Status DC Lidocaine HCl (Xylocaine 2% Topical 30gm Tube) 30 verónica STK-MED ONCE TP ; Start 03/25/19 at 10:44; Stop 03/25/19 at 10:44; Status DC Lidocaine HCl (Viscous Lidocaine) 15 ml STK-MED ONCE .ROUTE ; Start 03/25/19 at 10:44; Stop 03/25/19 at 10:44; Status DC Fentanyl Citrate (Fentanyl 2ml Vial) 100 mcg STK-MED ONCE .ROUTE ; Start 03/25/19 at 11:23; Stop 03/25/19 at 11:24; Status DC Midazolam HCl (Versed) 2 mg STK-MED ONCE .ROUTE ; Start 03/25/19 at 11:37; Stop 03/25/19 at 11:38; Status DC Midazolam HCl (Versed) 2 mg 1X ONCE IV Last administered on 03/25/19at 11:51; Start 03/25/19 at 11:45; Stop 03/25/19 at 11:46; Status DC Fentanyl Citrate (Fentanyl 2ml Vial) 100 mcg 1X ONCE IV Last administered on 03/25/19at 11:51; Start 03/25/19 at 11:45; Stop 03/25/19 at 11:46; Status DC Propofol 20 ml @ As Directed STK-MED ONCE IV ; Start 03/25/19 at 11:56; Stop 03/25/19 at 11:56; Status DC Benzocaine (Hurricaine One) 3 spray 1X ONCE MM Last administered on 03/25/19at 14:44; Start 03/25/19 at 14:45; Stop 03/25/19 at 14:47; Status DC Lidocaine HCl (Xylocaine 2% Topical 30gm Tube) 1 verónica 1X ONCE TP Last administered on 03/25/19at 14:44; Start 03/25/19 at 14:45; Stop 03/25/19 at 14:47; Status DC Ringer's Solution 1,000 ml @ 75 mls/hr 1X ONCE IV Last administered on 03/25/19at 14:44; Start 03/25/19 at 14:45; Stop 03/26/19 at 04:04; Status DC Topiramate (Topamax) 50 mg BID PO Last administered on 03/28/19 08:16; Start 03/27/19 at 21:00 Aspirin (Ecotrin) 81 mg DAILYWBKFT PO Last administered on 03/28/19 08:16; Start 03/28/19 at 08:00 Valproic Acid 500 mg/Dextrose 55 ml @ 55 mls/hr STAT ONCE IV Last administered on 03/28/19 09:19; Start 03/28/19 at 08:45; Stop 03/28/19 at 09:44; Status DC Ketorolac Tromethamine (Toradol 15mg Vial) 15 mg STAT ONCE IV Last administered on 8/19/19at 09:19; Start 03/28/19 at 08:45; Stop 03/28/19 at 08:58; Status DC Vitals/I & O Vital Sign - Last 24 Hours 03/27/19 03/27/19 03/27/19 03/27/19 11:46 15:00 19:00 23:00 Temp 97.5 97.9 98.0 97.5 97.9 98.0 Pulse 70 76 81 73 Resp B/P (MAP) 149/82 (104) 122/63 (82) 128/56 (80) 140/61 (87) Pulse Ox 99 97 96 96 O2 Delivery Room Air Room Air Room Air Room Air O2 Flow Rate 2.0 03/28/19 03/28/19 03/28/19 03/28/19 03:00 07:00 08:16 08:16 Temp 97.9 98.3 97.9 98.3 Pulse 73 82 82 82 Resp B/P (MAP) 132/68 (89) 123/91 (102) 123/91 123/91 Pulse Ox 96 97 O2 Delivery Room Air Room Air O2 Flow Rate 2.0 03/28/19 08:36 O2 Delivery Room Air Intake and Output 03/27/19 03/27/19 03/28/19 14:59 22:59 06:59 Intake Total 100 ml 840 ml 480 ml Output Total 1400 ml Balance 100 ml 840 ml -920 ml MARGARITA DRUMMOND MD Mar 28, 2019 09:53
--- NOTE | 2019-03-28 10:28 | RAD ---
CT HEAD AND CERVICAL SPINE WO History: CVA: Recurrent severe headache and neck pain. Comparison: Brain MRI March 22, 2019. Technique: Noncontrast CT imaging was performed of the head and cervical spine. Coronal and sagittal reconstructions were performed. Exposure: One or more of the following individualized dose reduction techniques were utilized for this examination: 1. Automated exposure control 2. Adjustment of the mA and/or kV according to patient size 3. Use of iterative reconstruction technique. Findings: Head CT: No intracranial hemorrhage. No mass effect. No hydrocephalus. Extra-axial spaces are unremarkable. Previously identified punctate infarcts within the brainstem and cerebellum are not well seen on CT. Superior posterior scalp subcutaneous lesion, most likely epidermal inclusion cyst, unchanged. Imaged orbits are unremarkable. Partial opacification of left posterior ethmoid air cells. Small fluid level within the left maxillary sinus. Mastoid air cells are clear. Cervical spine CT: Straightening of the normal cervical lordosis. Normal vertebral body height and alignment. No fracture. Multilevel cervical degenerative disc disease most prominent C5-C6. No high-grade canal or neuroforaminal narrowing. Soft tissues unremarkable. Impression: 1. No acute intracranial abnormality. Previously seen punctate brain stem and cerebellar infarcts are not well identified on CT. 2. Mild multilevel cervical spondylosis. 3. Mild left posterior ethmoid and maxillary sinus disease. Electronically signed by: New Schwartz DO (03/28/2019 10:25 AM) [id number]
[2019-03-28 11:05] VITALS: BP 120/82
--- NOTE | 2019-03-28 11:38 | NUR ---
SS following up with discharge planning. PT/OT recommending inpatient rehabilitation. SS met with pt to discuss rehabilitation and discharge planning. Pt declining inpatient rehabilitation at this time stating that she will not go. Pt agreeable to home healthcare. Nurse navigator to meet with pt to discuss home healthcare and options. SS will continue to follow for discharge planning.
--- NOTE | 2019-03-28 13:09 | PDOC ---
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 Neck pain & headache Fibromyalgia HTN Osteoarthritis Hysterectomy Tonsillectomy History of Present Illness History of Present Illness 03/28/19 Patient seen and examined 03/27/19 Resting with MAME ARNDT RN 03/25/19 Pt seen and examined (well-appearing; in no acute distress) Chart reviewed YRIS CHERRY 03/24/19 Pt seen and examined Chart reviewed MRI/CT reviewed LP reviewed (CSF not impressive for meningitis) YRIS CHERRY Vitals/I&O Vitals/I&O: Vital Signs Date Time Temp Pulse Resp B/P (MAP) Pulse Ox O2 Delivery O2 Flow Rate FiO2 03/28/19 11:05 98.2 80 18 120/82 (95) 96 Room Air 98.2 03/28/19 03:00 2.0 I & O0 03/27/19 03/27/19 03/28/19 14:59 22:59 06:59 Intake Total 100 ml 840 ml 480 ml Output Total 1400 ml Balance 100 ml 840 ml -920 ml Physical Exam General: Alert, Oriented X3, Cooperative, No acute distress Heart: Regular rate, Normal S1, Normal S2, No murmurs Lungs: Clear Abdomen: Soft, No tenderness Extremities: No cyanosis, No edema Skin: No breakdown, No significant lesion Labs Labs: Laboratory Tests Test 03/28/19 04:00 White Blood Count 11.5 x10^3/uL (4.0-11.0) Red Blood Count 4.10 x10^6/uL (3.50-5.40) Hemoglobin 12.7 g/dL (12.0-15.5) Hematocrit 38.3 % (36.0-47.0) Mean Corpuscular Volume 93 fL (79-100) Mean Corpuscular Hemoglobin 31 pg (25-35) Mean Corpuscular Hemoglobin Concent 33 g/dL (31-37) Red Cell Distribution Width 13.2 % (11.5-14.5) Platelet Count 311 x10^3/uL (140-400) Neutrophils (%) (Auto) 52 % (31-73) Lymphocytes (%) (Auto) 31 % (24-48) Monocytes (%) (Auto) 11 % (0-9) Eosinophils (%) (Auto) 5 % (0-3) Basophils (%) (Auto) 1 % (0-3) Neutrophils # (Auto) 6.1 x10^3/uL (1.8-7.7) Lymphocytes # (Auto) 3.6 x10^3/uL (1.0-4.8) Monocytes # (Auto) 1.2 x10^3/uL (0.0-1.1) Eosinophils # (Auto) 0.6 x10^3/uL (0.0-0.7) Basophils # (Auto) 0.1 x10^3/uL (0.0-0.2) Sodium Level 141 mmol/L (136-145) Potassium Level 4.0 mmol/L (3.5-5.1) Chloride Level 105 mmol/L (98-107) Carbon Dioxide Level 29 mmol/L (21-32) Anion Gap 7 (6-14) Blood Urea Nitrogen 14 mg/dL (7-20) Creatinine 0.7 mg/dL (0.6-1.0) Estimated GFR (Cockcroft-Gault) 88.6 Glucose Level 100 mg/dL (70-99) Calcium Level 8.5 mg/dL (8.5-10.1) Review of Systems Review of Systems: co Fatigue co hunger Assessment and Plan Assessmemt and Plan Problems Medical Problems: (1) Anxiety Status: Chronic (2) CVA (cerebral vascular accident) Status: Acute (3) Fibromyalgia Status: Acute (4) Headache Status: Acute (5) HTN (hypertension) Status: Chronic (6) Leukocytosis Status: Acute (7) Neck pain Status: Acute (8) Obesity Status: Chronic (9) Stenosis of left internal carotid artery Status: Acute Assessment: AMS Acute CVA to left dorsal medulla and cerebellum LICA stenosis and ANGELA aneurysm Neck pain & headache Fibromyalgia HTN Osteoarthritis Hysterectomy Tonsillectomy Plan: Cardiac monitoring Appreciate subspecialist input Pain control PT/OT DVT prophylaxis Full code Stool Softener 100 PO/BID Discharge home on home health Discussed with RN physical therapy and case management Comment Review of Relevant I have reviewed the following items merlyn (where applicable) has been applied. Medications: Current Medications Medications (Trade) Dose Ordered Sig/Dagoberto Route PRN Reason Start Time Stop Time Status Last Admin Dose Admin Topiramate (Topamax) 50 mg BID PO 03/27/19 21:00 03/28/19 08:16 Aspirin (Ecotrin) 81 mg DAILYWBKFT PO 03/28/19 08:00 03/28/19 08:16 Valproic Acid 500 mg/Dextrose 55 ml @ 55 mls/hr STAT ONCE IV 03/28/19 08:45 03/28/19 09:44 DC 03/28/19 09:19 Ketorolac Tromethamine (Toradol 15mg Vial) 15 mg STAT ONCE IV 03/28/19 08:45 03/28/19 08:58 DC 03/28/19 09:19 LEBRON CURTIS III DO Mar 28, 2019 13:09
[2019-03-28 15:00] VITALS: BP 125/84
[2019-03-28] MEDS: ENOXAPARIN 40 MG/0.4 ML SYRINGE. SQ SCH (16:00)
--- NOTE | 2019-03-28 17:01 | NUR ---
SS following up with discharge planning. Pt agreeable to [facility], ; fax [phone], at discharge. SS will continue to follow for discharge planning.
[2019-03-28 19:00] VITALS: BP 113/57
[2019-03-28] MEDS: DOCUSATE SODIUM 100 MG CAPSULE. PO SCH (21:32)
[2019-03-28] MEDS: ATORVASTATIN CALCIUM 40 MG TABLET. PO SCH (21:32)
[2019-03-28 23:00] VITALS: BP 125/69
[2019-03-29 03:00] VITALS: BP 128/71
[2019-03-29] MEDS: ACETAMINOPHEN 325 MG TABLET. PO PRN ×3 (04:07→12:47)
[2019-03-29 07:00] VITALS: BP 124/89
[2019-03-29] MEDS: ASPIRIN ENTERIC COATED 81 MG TABLET.DR. PO SCH ×3 (08:00→12:48)
[2019-03-29] MEDS: CLOPIDOGREL BISULFATE 75 MG TABLET PO SCH ×3 (08:00→12:48)
[2019-03-29] MEDS: DOCUSATE SODIUM 100 MG CAPSULE. PO SCH ×3 (08:47→12:48)
[2019-03-29] MEDS: TOPIRAMATE 25 MG TABLET. PO SCH ×3 (08:48→12:49)
[2019-03-29] MEDS: METOPROLOL SUCC 24HR ER 25 MG TAB.ER.24H. PO SCH ×3 (08:48→12:48)
[2019-03-29] MEDS: amLODIPine BESYLATE 10 MG TABLET PO SCH ×3 (08:48→12:48)
--- NOTE | 2019-03-29 08:55 | NUR ---
AM Meds: Went to pt's room to give meds, pt refused to sit up to take meds. Informed pt that ST left a note that she needed to be sitting upright to eat, drink, or take meds. Pt stated she would "take them later then". Pt stated she was having pain, refused all meds.
--- NOTE | 2019-03-29 09:02 | PDOC ---
ALTAGRACIA RAMIREZ LOCOMOTIVE INSPECTOR 03/29/19 0902: SUBJECTIVE Subjective Pt has no pain. Does not want to go home with catheter, not sure she can make follow up appointment. Per RN might be discharging home today. OBJECTIVE Objective Physical Exam: General appearance: Alert and Oriented Head: Normocephalic, without obvious abnormality Eyes: conjunctivae/corneas clear. PERRL, EOM's intact. Fundi benign Lungs: Regular respirations, non labored breathing Pelvic: + Josue catheter in place draining clear yellow urine. Vital Signs Vital Signs Date Time Temp Pulse Resp B/P (MAP) Pulse Ox O2 Delivery O2 Flow Rate FiO2 03/29/19 08:55 82 124/89 03/29/19 08:55 82 124/89 03/29/19 07:00 97.9 82 18 124/89 (101) 98 Room Air 97.9 03/29/19 03:00 98.6 76 18 128/71 (90) 97 98.6 03/28/19 23:00 98.9 75 18 125/69 (87) 95 Room Air 98.9 03/28/19 20:00 Room Air 03/28/19 19:00 99.0 79 18 113/57 (75) 95 Room Air 99.0 03/28/19 15:00 98.0 82 18 125/84 (98) 97 Room Air 98.0 03/28/19 11:05 98.2 80 18 120/82 (95) 96 Room Air 98.2 I & O Intake and Output 03/29/19 07:00 Intake Total 1505 ml Output Total 1600 ml Balance -95 ml Intake Oral 1450 ml IV Total 55 ml Output Urine Total 1600 ml PHYSICAL EXAM Physical Exam Physical Exam: General appearance: Alert and Oriented Head: Normocephalic, without obvious abnormality Eyes: conjunctivae/corneas clear. PERRL, EOM's intact. Fundi benign Lungs: Regular respirations, non labored breathing Pelvic: + Josue catheter in place draining clear yellow urine. ASSESSMENT/PLAN Assessment/Plan Ok to discharge home as long as she goes home with Josue catheter in place. Nursing may provide additional bags and straps as deemed necessary/requested by patient. Appointment scheduled with Dr. Appiah for 03/31/19 at 8:40am. I have spoken with transportation specialists and they will speak to patient about her transportation challenges/making her follow up appointment with Dr. Appiah on . Also discussed with RN and patient that she may call to res chedule/see if any cancellations for different appointment time. Reinforced reason for going home with Josue catheter. Discussed above with patient and attending RN all questions answered. Will sign off at this time, but please call with questions or changes in patient condition. Problems: (1) Josue catheter in place (2) Urinary retention SHELBI APPIAH MD 03/31/19 1643: ASSESSMENT/PLAN Assessment/Plan Agree with assessment and plan. ALTAGRACIA RAMIREZ APRN Mar 29, 2019 09:02 SHELBI APPIAH MD Mar 31, 2019 16:43
[2019-03-29 09:33] LABS: BASO # 0.1 x10^3/uL (0.0-0.2); BASO % 1 % (0-3); EOS # 0.4 x10^3/uL (0.0-0.7); EOS % 4 % (0-3); HEMATOCRIT 39.4 % (36.0-47.0); HEMOGLOBIN 13.2 g/dL (12.0-15.5); LYMPH # 2.3 x10^3/uL (1.0-4.8); LYMPH % 24 % (24-48); MEAN CORPUSCULAR HEMOGLOBIN 31 pg (25-35); MEAN CORPUSCULAR HGB CONC 34 g/dL (31-37); MEAN CORPUSCULAR VOLUME 94 fL (79-100); MONO % 10 % (0-9); NEUT % 61 % (31-73); PLATELET COUNT 300 x10^3/uL (140-400); RED CELL DISTRIBUTION WIDTH 13.2 % (11.5-14.5); WHITE BLOOD COUNT 9.9 x10^3/uL (4.0-11.0)
[2019-03-29 09:39] LABS: CALCIUM 8.8 mg/dL (8.5-10.1); CREATININE 0.8 mg/dL (0.6-1.0); GFR 75.9; POTASSIUM 4.4 mmol/L (3.5-5.1)
--- NOTE | 2019-03-29 10:44 | PDOC ---
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 Neck pain & headache Fibromyalgia HTN Osteoarthritis Hysterectomy Tonsillectomy History of Present Illness History of Present Illness 03/29/19 Pt seen and examined with NAD Chart reviewed YRIS CHERRY 03/28/19 Patient seen and examined Chart reviewed YRIS CHERRY 03/27/19 Resting with NAD YRIS CHERRY 03/25/19 Pt seen and examined (well-appearing; in no acute distress) Chart reviewed YRIS CHERRY 03/24/19 Pt seen and examined Chart reviewed MRI/CT reviewed LP reviewed (CSF not impressive for meningitis) YRIS CHERRY Vitals/I&O Vitals/I&O: Vital Signs Date Time Temp Pulse Resp B/P (MAP) Pulse Ox O2 Delivery O2 Flow Rate FiO2 03/29/19 08:55 82 124/89 03/29/19 07:00 97.9 18 98 Room Air 97.9 I & O 03/28/19 03/28/19 03/29/19 15:00 23:00 07:00 Intake Total 355 ml 350 ml 800 ml Output Total 1600 ml Balance 355 ml 350 ml -800 ml Physical Exam General: Alert, Oriented X3, Cooperative, No acute distress Heart: Regular rate, Normal S1, Normal S2, No murmurs Lungs: Clear Abdomen: Soft, No tenderness Extremities: No cyanosis, No edema Skin: No breakdown, No significant lesion Labs Labs: Laboratory Tests Test 03/29/19 09:15 White Blood Count 9.9 x10^3/uL (4.0-11.0) Red Blood Count 4.20 x10^6/uL (3.50-5.40) Hemoglobin 13.2 g/dL (12.0-15.5) Hematocrit 39.4 % (36.0-47.0) Mean Corpuscular Volume 94 fL (79-100) Mean Corpuscular Hemoglobin 31 pg (25-35) Mean Corpuscular Hemoglobin Concent 34 g/dL (31-37) Red Cell Distribution Width 13.2 % (11.5-14.5) Platelet Count 300 x10^3/uL (140-400) Neutrophils (%) (Auto) 61 % (31-73) Lymphocytes (%) (Auto) 24 % (24-48) Monocytes (%) (Auto) 10 % (0-9) Eosinophils (%) (Auto) 4 % (0-3) Basophils (%) (Auto) 1 % (0-3) Neutrophils # (Auto) 6.0 x10^3/uL (1.8-7.7) Lymphocytes # (Auto) 2.3 x10^3/uL (1.0-4.8) Monocytes # (Auto) 1.0 x10^3/uL (0.0-1.1) Eosinophils # (Auto) 0.4 x10^3/uL (0.0-0.7) Basophils # (Auto) 0.1 x10^3/uL (0.0-0.2) Sodium Level 142 mmol/L (136-145) Potassium Level 4.4 mmol/L (3.5-5.1) Chloride Level 105 mmol/L (98-107) Carbon Dioxide Level 27 mmol/L (21-32) Anion Gap 10 (6-14) Blood Urea Nitrogen 14 mg/dL (7-20) Creatinine 0.8 mg/dL (0.6-1.0) Estimated GFR (Cockcroft-Gault) 75.9 Glucose Level 99 mg/dL (70-99) Calcium Level 8.8 mg/dL (8.5-10.1) Review of Systems Review of Systems: Pt denies headache Pt denies vision change Assessment and Plan Assessmemt and Plan Problems Medical Problems: (1) Anxiety Status: Chronic (2) CVA (cerebral vascular accident) Status: Acute (3) Fibromyalgia Status: Acute (4) Headache Status: Acute (5) HTN (hypertension) Status: Chronic (6) Leukocytosis Status: Acute (7) Neck pain Status: Acute (8) Obesity Status: Chronic (9) Stenosis of left internal carotid artery Status: Acute Assessment: AMS 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 Medications: Current Medications Medications (Trade) Dose Ordered Sig/Dagoberto Route PRN Reason Start Time Stop Time Status Last Admin Dose Admin Docusate Sodium (Colace) 100 mg BID PO 03/28/19 21:00 03/28/19 21:35 CASTLE,NIAL K III DO Mar 29, 2019 10:44
--- NOTE | 2019-03-29 10:48 | SNU/HH DC ---
DISCHARGE ORDERS DISCHARGE INFORMATION: FINAL DIAGNOSIS Problems Medical Problems: (1) Anxiety Status: Chronic (2) CVA (cerebral vascular accident) Status: Acute (3) Fibromyalgia Status: Acute (4) Headache Status: Acute (5) HTN (hypertension) Status: Chronic (6) Leukocytosis Status: Acute (7) Neck pain Status: Acute (8) Obesity Status: Chronic (9) Stenosis of left internal carotid artery Status: Acute CONDITION ON DISCHARGE: Stable CODE STATUS: Code Status: Full HALFWAY: SNF STAY <30 DAYS: Yes HOSPICE: HOSPICE: No HOSPICE EVAL & TREAT: No POST DISCHARGE ORDERS: ACTIVITY ORDERS: Activity as tolerated DIET AFTER DISCHARGE: Regular TREATMENT/EQUIPMENT ORDERS: Physical Therapy For: Evalulation/Treatment Occupational Therapy For: Evaluation/Treatment Speech Language Pathology For: Evaluation/Treatment LEBRON CURTIS III DO Mar 29, 2019 10:48
[2019-03-29 10:55] VITALS: BP 120/72
--- NOTE | 2019-03-29 11:07 | PDOC ---
PROGRESS NOTES Assessment Problems Medical Problems: (1) Anxiety Status: Chronic (2) CVA (cerebral vascular accident) Status: Acute (3) Fibromyalgia Status: Acute (4) Headache Status: Acute (5) HTN (hypertension) Status: Chronic (6) Leukocytosis Status: Acute (7) Neck pain Status: Acute (8) Obesity Status: Chronic (9) Stenosis of left internal carotid artery Status: Acute 2 small acute left dorsal medullar and left cerebellar infarcts. Subacute left cerebellar infract. Severe headaches, some migraine features, better after Toradol and Depekon infusion yesterday. Neck pain, multilevel spondylosis without evidence of radiculopathy or myelopathy. Left ICA >75% stenosis. Right ICA 7 mm aneurysmal dilatation. HTN. Urinary retention on 03/25/19. Smoking. Obesity. I saw her in the office in 2014 as a referral from [facility], I felt that there was fibromyalgia and nonorganic disease, and told the patient I simply needed more information as she had had extensive workup [facility], but I never received records Plan Avoid triptans, given acute strokes. ASA and Plavix Metoprolol and Topamax Lipitor Vascular surgery and urology also following Patient education for smoking cessation. Okay for discharge Followup with Dr. Saldaña Subjective Pain 4-12/17 Objective Vital Signs Date Time Temp Pulse Resp B/P (MAP) Pulse Ox O2 Delivery O2 Flow Rate FiO2 03/29/19 10:55 97.8 80 18 120/72 (88) 97 Room Air 97.8 Intake and Output 03/29/19 06:59 Intake Total 1505 ml Output Total 1600 ml Balance -95 ml Intake Oral 1450 ml IV Total 55 ml Output Urine Total 1600 ml PHYSICAL EXAM Alert. Oriented to time, place and person. PERRL. EOMI. CN: no focal findings. Muscle tone: normal. Muscle strength: 5/5 DTR: 2+ Plantar reflex: flexor Gait: not examined in bed. Sensory exam: no abnormal findings. No cerebellar signs elicited. Review of Relevant I have reviewed the following items merlyn (where applicable) has been applied. Labs Laboratory Tests Test 03/28/19 04:00 03/29/19 09:15 White Blood Count 11.5 x10^3/uL (4.0-11.0) 9.9 x10^3/uL (4.0-11.0) Red Blood Count 4.10 x10^6/uL (3.50-5.40) 4.20 x10^6/uL (3.50-5.40) Hemoglobin 12.7 g/dL (12.0-15.5) 13.2 g/dL (12.0-15.5) Hematocrit 38.3 % (36.0-47.0) 39.4 % (36.0-47.0) Mean Corpuscular Volume 93 fL (79-100) 94 fL (79-100) Mean Corpuscular Hemoglobin 31 pg (25-35) 31 pg (25-35) Mean Corpuscular Hemoglobin Concent 33 g/dL (31-37) 34 g/dL (31-37) Red Cell Distribution Width 13.2 % (11.5-14.5) 13.2 % (11.5-14.5) Platelet Count 311 x10^3/uL (140-400) 300 x10^3/uL (140-400) Neutrophils (%) (Auto) 52 % (31-73) 61 % (31-73) Lymphocytes (%) (Auto) 31 % (24-48) 24 % (24-48) Monocytes (%) (Auto) 11 % (0-9) 10 % (0-9) Eosinophils (%) (Auto) 5 % (0-3) 4 % (0-3) Basophils (%) (Auto) 1 % (0-3) 1 % (0-3) Neutrophils # (Auto) 6.1 x10^3/uL (1.8-7.7) 6.0 x10^3/uL (1.8-7.7) Lymphocytes # (Auto) 3.6 x10^3/uL (1.0-4.8) 2.3 x10^3/uL (1.0-4.8) Monocytes # (Auto) 1.2 x10^3/uL (0.0-1.1) 1.0 x10^3/uL (0.0-1.1) Eosinophils # (Auto) 0.6 x10^3/uL (0.0-0.7) 0.4 x10^3/uL (0.0-0.7) Basophils # (Auto) 0.1 x10^3/uL (0.0-0.2) 0.1 x10^3/uL (0.0-0.2) Sodium Level 141 mmol/L (136-145) 142 mmol/L (136-145) Potassium Level 4.0 mmol/L (3.5-5.1) 4.4 mmol/L (3.5-5.1) Chloride Level 105 mmol/L (98-107) 105 mmol/L (98-107) Carbon Dioxide Level 29 mmol/L (21-32) 27 mmol/L (21-32) Anion Gap 7 (6-14) 10 (6-14) Blood Urea Nitrogen 14 mg/dL (7-20) 14 mg/dL (7-20) Creatinine 0.7 mg/dL (0.6-1.0) 0.8 mg/dL (0.6-1.0) Estimated GFR (Cockcroft-Gault) 88.6 75.9 Glucose Level 100 mg/dL (70-99) 99 mg/dL (70-99) Calcium Level 8.5 mg/dL (8.5-10.1) 8.8 mg/dL (8.5-10.1) Laboratory Tests Test 03/29/19 09:15 White Blood Count 9.9 x10^3/uL (4.0-11.0) Red Blood Count 4.20 x10^6/uL (3.50-5.40) Hemoglobin 13.2 g/dL (12.0-15.5) Hematocrit 39.4 % (36.0-47.0) Mean Corpuscular Volume 94 fL (79-100) Mean Corpuscular Hemoglobin 31 pg (25-35) Mean Corpuscular Hemoglobin Concent 34 g/dL (31-37) Red Cell Distribution Width 13.2 % (11.5-14.5) Platelet Count 300 x10^3/uL (140-400) Neutrophils (%) (Auto) 61 % (31-73) Lymphocytes (%) (Auto) 24 % (24-48) Monocytes (%) (Auto) 10 % (0-9) Eosinophils (%) (Auto) 4 % (0-3) Basophils (%) (Auto) 1 % (0-3) Neutrophils # (Auto) 6.0 x10^3/uL (1.8-7.7) Lymphocytes # (Auto) 2.3 x10^3/uL (1.0-4.8) Monocytes # (Auto) 1.0 x10^3/uL (0.0-1.1) Eosinophils # (Auto) 0.4 x10^3/uL (0.0-0.7) Basophils # (Auto) 0.1 x10^3/uL (0.0-0.2) Sodium Level 142 mmol/L (136-145) Potassium Level 4.4 mmol/L (3.5-5.1) Chloride Level 105 mmol/L (98-107) Carbon Dioxide Level 27 mmol/L (21-32) Anion Gap 10 (6-14) Blood Urea Nitrogen 14 mg/dL (7-20) Creatinine 0.8 mg/dL (0.6-1.0) Estimated GFR (Cockcroft-Gault) 75.9 Glucose Level 99 mg/dL (70-99) Calcium Level 8.8 mg/dL (8.5-10.1) Microbiology 03/21/19 Throat Culture - Final, Complete 03/21/19 - Final, Complete Medications Current Medications Vancomycin HCl (Vanco Per Pharmacy) 1 each PRN DAILY PRN MC SEE COMMENTS Last administered on 03/21/19at 05:49; Start 03/21/19 at 03:30; Stop 03/21/19 at 12:17; Status DC Ampicillin Sodium 2 gm/Sodium Chloride 100 ml @ 200 mls/hr Q6H IV Last administered on 03/21/19at 07:28; Start 03/21/19 at 07:00; Stop 03/21/19 at 12:17; Status DC Acyclovir Sodium 700 mg/Dextrose 264 ml @ 267.945 mls/hr Q8HRS IV Last administered on 03/21/19at 06:08; Start 03/21/19 at 06:00; Stop 03/21/19 at 12:17; Status DC Ceftriaxone Sodium (Rocephin) 2 gm Q12HR IVP Last administered on 03/21/19at 08:46; Start 03/21/19 at 09:00; Stop 03/21/19 at 12:17; Status DC Vancomycin HCl 1.75 gm/Sodium Chloride 500 ml @ 250 mls/hr Q12H IV ; Start 03/21/19 at 09:00; Status UNV Vancomycin HCl 1 gm/Sodium Chloride 250 ml @ 250 mls/hr Q12H IV Last administered on 03/21/19at 08:46; Start 03/21/19 at 09:00; Stop 03/21/19 at 12:17; Status DC Vancomycin HCl (Vancomycin Trough Level) 1 each 1X ONCE MC ; Start 03/22/19 at 08:30; Stop 03/22/19 at 08:31; Status DC Enoxaparin Sodium (Lovenox 40mg Syringe) 40 mg Q24H SQ Last administered on 03/28/19at 16:00; Start 03/21/19 at 15:00 Amlodipine Besylate (Norvasc) 5 mg DAILY PO Last administered on 03/24/19at 08:19; Start 03/21/19 at 16:00; Stop 03/24/19 at 10:49; Status DC Acetaminophen (Tylenol) 650 mg PRN Q6HRS PRN PO HEADACHE Last administered on 03/29/19at 04:08; Start 03/21/19 at 15:30 Metoprolol Succinate (Toprol Xl) 25 mg DAILY PO Last administered on 03/24/19at 08:19; Start 03/21/19 at 20:00; Stop 03/24/19 at 10:49; Status DC Topiramate (Topamax) 25 mg BID PO Last administered on 03/27/19at 09:09; Start 03/21/19 at 21:00; Stop 03/27/19 at 14:13; Status DC Oxycodone HCl (Roxicodone) 5 mg PRN Q6HRS PRN PO PAIN Last administered on 03/24/19at 06:09; Start 03/21/19 at 20:00; Stop 03/24/19 at 12:11; Status DC Morphine Sulfate (Morphine Sulfate) 2 mg PRN Q4HRS PRN IV PAIN Last administered on 03/26/19at 09:09; Start 03/21/19 at 21:00; Stop 03/26/19 at 10:16; Status DC Gadoterate Meglumine (Dotarem) 14.2 ml 1X ONCE IVP Last administered on 03/22/19at 12:22; Start 03/22/19 at 12:15; Stop 03/22/19 at 12:16; Status DC Iohexol (Omnipaque 350 Mg/ml) 75 ml 1X ONCE IV Last administered on 03/22/19at 13:44; Start 03/22/19 at 13:30; Stop 03/22/19 at 13:31; Status DC Info (CONTRAST GIVEN -- Rx MONITORING) 1 each PRN DAILY PRN MC SEE COMMENTS; Start 03/22/19 at 13:30; Stop 03/24/19 at 13:29; Status DC Iohexol (Omnipaque 350 Mg/ml) 75 ml 1X ONCE IV ; Start 03/22/19 at 13:45; Stop 03/22/19 at 13:46; Status DC Aspirin (Medardo Aspirin) 325 mg DAILYWBKFT PO Last administered on 03/27/19 09:09; Start 03/22/19 at 20:30; Stop 03/27/19 at 14:15; Status DC Atorvastatin Calcium (Lipitor) 10 mg QHS PO Last administered on 03/22/19at 21:26; Start 03/22/19 at 21:00; Stop 03/23/19 at 10:24; Status DC Atorvastatin Calcium (Lipitor) 40 mg QHS PO Last administered on 03/28/19 21:35; Start 03/23/19 at 21:00 Clopidogrel Bisulfate (Plavix) 75 mg DAILYWBKFT PO Last administered on 03/28/19 08:16; Start 03/24/19 at 10:00 Amlodipine Besylate (Norvasc) 10 mg DAILY PO Last administered on 03/28/19 08:16; Start 03/25/19 at 09:00 Metoprolol Succinate (Toprol Xl) 12.5 mg DAILY PO Last administered on 03/10 08:16; Start 03/25/19 at 09:00 Oxycodone/ Acetaminophen (Percocet 10/325) 1 tab PRN Q6HRS PRN PO MODERATE TO SEVERE PAIN Last administered on 03/28/19 16:00; Start 03/24/19 at 12:15 Ringer's Solution 1,000 ml @ 50 mls/hr Q20H IV Last administered on 03/25/19at 11:52; Start 03/25/19 at 07:00; Stop 03/25/19 at 18:59; Status DC Benzocaine (Hurricaine One) 1 spray STK-MED ONCE .ROUTE ; Start 03/25/19 at 10:44; Stop 03/25/19 at 10:44; Status DC Lidocaine HCl (Xylocaine 2% Topical 30gm Tube) 30 verónica STK-MED ONCE TP ; Start 03/25/19 at 10:44; Stop 03/25/19 at 10:44; Status DC Lidocaine HCl (Viscous Lidocaine) 15 ml STK-MED ONCE .ROUTE ; Start 03/25/19 at 10:44; Stop 03/25/19 at 10:44; Status DC Fentanyl Citrate (Fentanyl 2ml Vial) 100 mcg STK-MED ONCE .ROUTE ; Start 03/25/19 at 11:23; Stop 03/25/19 at 11:24; Status DC Midazolam HCl (Versed) 2 mg STK-MED ONCE .ROUTE ; Start 03/25/19 at 11:37; Stop 03/25/19 at 11:38; Status DC Midazolam HCl (Versed) 2 mg 1X ONCE IV Last administered on 03/25/19at 11:51; Start 03/25/19 at 11:45; Stop 03/25/19 at 11:46; Status DC Fentanyl Citrate (Fentanyl 2ml Vial) 100 mcg 1X ONCE IV Last administered on 03/25/19at 11:51; Start 03/25/19 at 11:45; Stop 03/25/19 at 11:46; Status DC Propofol 20 ml @ As Directed STK-MED ONCE IV ; Start 03/25/19 at 11:56; Stop 03/25/19 at 11:56; Status DC Benzocaine (Hurricaine One) 3 spray 1X ONCE MM Last administered on 03/25/19at 14:44; Start 03/25/19 at 14:45; Stop 03/25/19 at 14:47; Status DC Lidocaine HCl (Xylocaine 2% Topical 30gm Tube) 1 verónica 1X ONCE TP Last administered on 03/25/19at 14:44; Start 03/25/19 at 14:45; Stop 03/25/19 at 14:47; Status DC Ringer's Solution 1,000 ml @ 75 mls/hr 1X ONCE IV Last administered on 03/25/19at 14:44; Start 03/25/19 at 14:45; Stop 03/26/19 at 04:04; Status DC Topiramate (Topamax) 50 mg BID PO Last administered on 03/28/19at 21:35; Start 03/27/19 at 21:00 Aspirin (Ecotrin) 81 mg DAILYWBKFT PO Last administered on 03/28/19at 08:16; Start 03/28/19 at 08:00 Valproic Acid 500 mg/Dextrose 55 ml @ 55 mls/hr STAT ONCE IV Last administered on 03/28/19 09:19; Start 03/28/19 at 08:45; Stop 03/28/19 at 09:44; Status DC Ketorolac Tromethamine (Toradol 15mg Vial) 15 mg STAT ONCE IV Last administered on 03/28/19 09:19; Start 03/28/19 at 08:45; Stop 03/28/19 at 08:58; Status DC Docusate Sodium (Colace) 100 mg BID PO Last administered on 03/28/19at 21:35; Start 03/28/19 at 21:00 Vitals/I & O Vital Sign - Last 24 Hours 03/28/19 03/28/19 03/28/19 03/28/19 15:00 19:00 20:00 23:00 Temp 98.0 99.0 98.9 98.0 99.0 98.9 Pulse 82 79 75 Resp 18 18 18 B/P (MAP) 125/84 (98) 113/57 (75) 125/69 (87) Pulse Ox 97 95 95 O2 Delivery Room Air Room Air Room Air Room Air 03/29/19 03/29/19 03/29/19 03/29/19 03:00 07:00 08:55 08:55 Temp 98.6 97.9 98.6 97.9 Pulse 76 82 82 82 Resp 18 18 B/P (MAP) 128/71 (90) 124/89 (101) 124/89 124/89 Pulse Ox 97 98 O2 Delivery Room Air 03/29/19 10:55 Temp 97.8 97.8 Pulse 80 Resp 18 B/P (MAP) 120/72 (88) Pulse Ox 97 O2 Delivery Room Air Intake and Output 03/28/19 03/28/19 03/29/19 14:59 22:59 06:59 Intake Total 355 ml 350 ml 800 ml Output Total 1600 ml Balance 355 ml 350 ml -[address] HEAD AND CERVICAL SPINE WO History: CVA: Recurrent severe headache and neck pain. Comparison: Brain MRI March 22, 2019. Technique: Noncontrast CT imaging was performed of the head and cervical spine. Coronal and sagittal reconstructions were performed. Exposure: One or more of the following individualized dose reduction techniques were utilized for this examination: 1. Automated exposure control 2. Adjustment of the mA and/or kV according to patient size 3. Use of iterative reconstruction technique. Findings: Head CT: No intracranial hemorrhage. No mass effect. No hydrocephalus. Extra-axial spaces are unremarkable. Previously identified punctate infarcts within the brainstem and cerebellum are not well seen on CT. Superior posterior scalp subcutaneous lesion, most likely epidermal inclusion cyst, unchanged. Imaged orbits are unremarkable. Partial opacification of left posterior ethmoid air cells. Small fluid level within the left maxillary sinus. Mastoid air cells are clear. Cervical spine CT: Straightening of the normal cervical lordosis. Normal vertebral body height and alignment. No fracture. Multilevel cervical degenerative disc disease most prominent C5-C6. No high-grade canal or neuroforaminal narrowing. Soft tissues unremarkable. Impression: 1. No acute intracranial abnormality. Previously seen punctate brain stem and cerebellar infarcts are not well identified on CT. 2. Mild multilevel cervical spondylosis. 3. Mild left posterior ethmoid and maxillary sinus disease. MARGARITA DRUMMOND MD Mar 29, 2019 11:07
[2019-03-29 15:00] VITALS: BP 126/70
[2019-03-29] MEDS: ENOXAPARIN 40 MG/0.4 ML SYRINGE. SQ SCH (15:00)
--- NOTE | 2019-03-29 16:15 | NUR ---
YAMIL following pt. Orders for home health faxed to [facility]. Discussed with RN.
--- NOTE | 2019-03-29 19:44 | NUR ---
Discharge Note: YESIKA CALZADA [address] Discharge instructions and discharge home medications reviewed with Patient and a copy given. All questions have been answered and understanding verbalized. The following instructions and handouts were given: patient visit, medication information, education Discontinued lines and drains: peripheral IV, tip intact. Patient discharged to home with home health via private vehicle. Patient left unit awake, in stable condition, with all personal belongings.
== END 2019-03-29 18:22 | disposition home health service (06) | DRG 64 ==
LOC: 6 SOUTH 02:30 → 5 SOUTH 03-26 19:00
PROVIDERS: ADMIT Family Medicine; ATTEND Family Medicine
DX: I63.9 Cerebral infarction, unspecified (principal); G92 Toxic encephalopathy; D72.829 Elevated white blood cell count, unspecified; E66.9 Obesity, unspecified; E78.5 Hyperlipidemia, unspecified; F17.210 Nicotine dependence, cigarettes, uncomplicated; F41.9 Anxiety disorder, unspecified; G43.909 Migraine, unspecified, not intractable, without status migrainosus; G89.29 Other chronic pain; I10 Essential (primary) hypertension; I25.41 Coronary artery aneurysm; I65.23 Occlusion and stenosis of bilateral carotid arteries; J32.0 Chronic maxillary sinusitis; M19.90 Unspecified osteoarthritis, unspecified site; M47.812 Spondylosis without myelopathy or radiculopathy, cervical region; M79.7 Fibromyalgia; N31.9 Neuromuscular dysfunction of bladder, unspecified; R29.6 Repeated falls; Z79.02 Long term (current) use of antithrombotics/antiplatelets; Z79.82 Long term (current) use of aspirin; Z79.899 Other long term (current) drug therapy; Z82.3 Family history of stroke; Z82.49 Family history of ischemic heart disease and other diseases of the circulatory system; Z86.73 Personal history of transient ischemic attack (TIA), and cerebral infarction without residual deficits; Z91.81 History of falling; Z90.710 Acquired absence of both cervix and uterus; Z68.32 Body mass index [BMI] 32.0-32.9, adult
CPT/HCPCS: 36415; 70450; 70496; 70498; 70553; 71045; 72125; 80048; 80053; 80061; 80202; 80307; 83605; 84145; 85007; 85025; 85651; 87070; 93005; 93306; 93312; 93325; 99406; A9575; J0133; J0290; J0696; J1650; J1885; J2250; J2270; J2704; J3010; J3370; J7050; J7120; Q9967; 92610; 97116; 97530; 97535; G0378; J7030

== ENCOUNTER → 2019-04-21 | Outpatient (CLI) | payer OTHER ==
[2019-03-29 15:00] VITALS: BP 126/70
--- NOTE | 2019-04-21 15:20 | RAD ---
MRI Cervical Spine Without Contrast History: Upper extremity radiculopathy Technique: Multiplanar, multi sequential noncontrast MR imaging was performed of the cervical spine. Comparison: None Findings: Cervical cord caliber is within normal limits without significant focal signal abnormality. There is no significant marrow edema. Cervical vertebral body stature is maintained. There is negligible posterior subluxation C4 relative to C5. There is mild disc desiccation C4-5 and C5-6. There is mild paranasal sinus mucosal thickening. There are multiple nodes of the visualized bilateral neck although not considered significantly enlarged, largest on the right about 9 mm short axis dimension. There are old lacunar infarcts of the left cerebellum, also probably of the left medulla. C2-C3: Neural foramina and spinal canal are adequate. C3-C4: Neural foramina and spinal canal are adequate. C4-C5: There is a very shallow posterior central protrusion about 1 mm AP with associated annular tear. Central canal is borderline about 10 mm. Neural foramina are adequate. C5-C6: There is negligible disc osteophyte complex and bulge. Central canal is minimally narrowed to about 9 to 10 mm. There is minimal uncovertebral degenerative change. There is mild narrowing of the left neural foramen, right neural foramen adequate. C6-C7: There is very shallow posterior protrusion about 1 mm AP. Central canal is adequate 11 mm. Neural foramina are not significantly narrowed. C7-T1: Neural foramina and spinal canal are adequate. Impression: 1. There is mild spinal stenosis C5-6 on the order of 9 to 10 mm, borderline narrowing at C4-5. There is mild spondylosis. There is minimal narrowing of the left C5-6 neural foramen. 2. There are old left cerebellar infarcts, also probably of the left medulla. Electronically signed by: Pravin Bruno MD (04/21/2019 3:17 PM) [id number]
== END | disposition home or self-care (01) ==
LOC: MRI 13:08
PROVIDERS: ATTEND Psychiatry & Neurology Neurology
DX: M50.121 Cervical disc disorder at C4-C5 level with radiculopathy (principal); M48.02 Spinal stenosis, cervical region; M47.22 Other spondylosis with radiculopathy, cervical region; M25.78 Osteophyte, vertebrae
CPT/HCPCS: 72141

== ENCOUNTER → 2020-01-25 | Outpatient (CLI) | payer MEDICARE ==
--- NOTE | 2020-01-25 14:11 | KCIC ---
MR of the right knee HISTORY: Right knee pain, stiffness. Pain for 18 months. TECHNIQUE: Routine multiplanar sequences are obtained. FINDINGS: Mild/moderate motion degradation despite repeating scans. Mild signal within the medial and lateral menisci is likely accentuated by the motion degradation. No convincing evidence of medial or lateral meniscal tear. Irregularity of the anterior cruciate ligament is probably due to the motion, no convincing evidence of a tear. No acute pivot shift bone injuries or tibial translation of the tibia. Posterior cruciate ligament intact. Medial collateral ligament intact. Iliotibial band unremarkable. Fibular collateral ligament, biceps femoris tendon and popliteus tendon are intact. Extensor mechanism is intact. Trace joint fluid. Trace Benavides's cyst. Severe chondral thinning of the patella greater medially. Medial and lateral compartment articular cartilage demonstrates no obvious acute defect or severe thinning. No evidence of acute fracture. No aggressive bone destruction. No acute soft tissue abnormality. IMPRESSION: 1. [id number] image degradation due to motion. 2. No definite meniscal tear or internal derangement. 3. Severe chondromalacia of the patella. Electronically signed by: John Kellogg MD (01/25/2020 2:08 PM) [place] [id number]
== END ==
LOC: KCIC MRI 12:21
PROVIDERS: ATTEND Orthopaedic Surgery
DX: M22.41 Chondromalacia patellae, right knee (principal)
CPT/HCPCS: 73721